=== PATIENT | male | born 1960 | race African-American/Black ===

== ENCOUNTER 2017-04-16 20:04 | Inpatient (IN) | payer MEDICARE, MEDICAID, OTHER ==
[~2017-04-16] VITALS: Ht 180.3 cm; Wt 79.4 kg
--- NOTE | 2017-04-16 21:00 | PD ---
HPI Chief Complaint: Psychiatric Symptoms Time Seen by Provider: 20:52 Travel History International Travel<30 days: No Contact w/Intl Traveler<30days: No Traveled to known affect area: No History of Present Illness HPI 56-year-old male presents to the emergency department as a [facility] [place] law enforcement [email or web address] for report of history of paranoid schizophrenia and then recent caregivers in [facility], reporting that patient has refused treatment after being bitten by a snake in his right hand earlier in the week. Patient reports that he thinks he was bitten in the hand by a rattlesnake about a month ago. [email or web address][employer]sh reports that nursing staff from [facility] facility where he was transported identified that he has consistently refused to seek medical attention despite increased swelling in the hand. Patient here denies any hand pain does complain of some right axillary discomfort; denies chest pain, shortness of breath, and no abdominal pain. PFSH Past Medical History Narrative Medical Schizophrenia; nursing notes reviewed Medical History: Denies Significant Hx Diminished Hearing: No Schizophrenia: Yes Social History Alcohol Use: No Tobacco Use: Yes Substance Use: No Allergies-Medications (Allergen,Severity, Reaction): Coded Allergies: No Known Allergies (Verified Allergy, Unknown, 04/16/17) Narrative Medication Unknown Review of Systems Except as stated in HPI: all other systems reviewed are Neg General / Constitutional: No: Fever, Chills Eyes: No: Visual changes HENT: No: Headaches, Lightheadedness Cardiovascular: No: Chest Pain or Discomfort, Diaphoresis, Syncope Respiratory: No: Shortness of Breath Gastrointestinal: No: Nausea, Vomiting, Abdominal Pain Genitourinary: No: Flank Pain Musculoskeletal: Positive: Limited ROM, Edema (right hand right hand), Pain, No : Myalgias, Arthralgias Skin: No Rash (right hand) Neurologic: No: Weakness Psychiatric: No: Anxiety, Suicidal Ideations, Homicidal Ideation Endocrine: No: Heat Intolerance Hematologic/Lymphatic: No: Easy Bruising Physical Exam Narrative GENERAL: Well-developed well-nourished male in no acute respiratory distress with garbled and slurring of speech SKIN: Warm and dry. HEAD: Normocephalic. EYES: No scleral icterus. No injection or drainage. NECK: Supple, trachea midline. No JVD or lymphadenopathy. CARDIOVASCULAR: Regular rate and rhythm without murmurs, gallops, or rubs. RESPIRATORY: Breath sounds equal bilaterally. No accessory muscle use. GASTROINTESTINAL: Abdomen soft, non-tender, nondistended. MUSCULOSKELETAL: No cyanosis, or edema. Attention right hand edema and bullous lesion of the right index finger with decreased range of motion secondary to swelling and extended swelling to the dorsum of the right hand capillary refill is brisk and less than 2 seconds to the thumb, second, third, fourth, and fifth digits and thumb apposition is not performed with the index finger secondary to swelling; ecchymotic changes noted extensively involving these right index finger however capillary refill is brisk and less than 2 seconds per digit including the right index finger; question puncture wound to the palmar aspect of the right index finger just distal second MCP otherwise no puncture wound(s) identified. BACK: Nontender without obvious deformity. No CVA tenderness. Data Data Orders Orders Complete Blood Count With Diff (04/16/17 20:52) Comprehensive Metabolic Panel (04/16/17 20:52) Urinalysis - C+S If Indicated (04/16/17 20:52) Electrocardiogram (04/16/17 20:52) Oximetry (04/16/17 20:52) Iv Access Insert/Monitor (04/16/17 20:52) Ecg Monitoring (04/16/17 20:52) Psych Screen (04/16/17 20:52) Blood Glucose (04/16/17 20:52) Drug Screen, Random Urine (04/16/17 20:52) Alcohol (Ethanol) (04/16/17 20:52) Salicylates (Aspirin) (04/16/17 20:52) Tylenol (Acetaminophen) (04/16/17 20:52) Hand, Complete ([id number]) (04/16/17 ) Act Partial Throm Time (Ptt) (04/16/17 21:00) Prothrombin Time / Inr (Pt) (04/16/17 21:00) Ckmb (Isoenzyme) Profile (04/16/17 20:52) Troponin I (04/16/17 20:52) Blood Culture (04/16/17 21:39) Lactic Acid (04/16/17 21:39) Tetanus/Diphtheria Tox Adult (Tetanus/Di (04/16/17 21:45) CKMB (04/16/17 21:15) CKMB% (04/16/17 21:15) Clindamycin Inj (Cleocin Inj) (04/16/17 22:00) Vancomycin Inj (Vancomycin Inj) (04/16/17 22:15) Admit Order (Ed Use Only) (04/16/17 ) Chief Orthoptist / Telemetry [id number].Q8H (04/16/17 22:37) Diet Npo (04/17/17 Breakfast) Activity Oob With Assistance (04/16/17 22:37) Notify Dr: Other (04/16/17 22:37) Labs Laboratory Tests Test 04/16/17 21:15 04/16/17 21:45 White Blood Count 11.2 TH/MM3 Red Blood Count 4.29 MIL/MM3 Hemoglobin 12.6 GM/DL Hematocrit 38.2 % Mean Corpuscular Volume 89.2 FL Mean Corpuscular Hemoglobin 29.4 PG Mean Corpuscular Hemoglobin Concent 32.9 % Red Cell Distribution Width 14.4 % Platelet Count 186 TH/MM3 Mean Platelet Volume 8.3 FL Neutrophils (%) (Auto) 76.0 % Lymphocytes (%) (Auto) 12.3 % Monocytes (%) (Auto) 9.2 % Eosinophils (%) (Auto) 1.5 % Basophils (%) (Auto) 1.0 % Neutrophils # (Auto) 8.5 TH/MM3 Lymphocytes # (Auto) 1.4 TH/MM3 Monocytes # (Auto) 1.0 TH/MM3 Eosinophils # (Auto) 0.2 TH/MM3 Basophils # (Auto) 0.1 TH/MM3 CBC Comment DIFF FINAL Differential Comment Prothrombin Time 10.7 SEC Prothromb Time International Ratio 1.1 RATIO Activated Partial Thromboplast Time 35.1 SEC Urine Color LIGHT-YELLOW Urine Turbidity CLEAR Urine pH 7.0 Urine Specific [place] 1.009 Urine Protein NEG mg/dL Urine Glucose (UA) NEG mg/dL Urine Ketones NEG mg/dL Urine Occult Blood NEG Urine Nitrite NEG Urine Bilirubin NEG Urine Urobilinogen 4.0 MG/DL Urine Leukocyte Esterase NEG Urine RBC 1 /hpf Urine WBC LESS THAN 1 /hpf Microscopic Urinalysis Comment CULT NOT INDICATED Blood Urea Nitrogen 11 MG/DL Creatinine 0.98 MG/DL Random Glucose 102 MG/DL Total Protein 7.2 GM/DL Albumin 3.1 GM/DL Calcium Level 8.6 MG/DL Alkaline Phosphatase 91 U/L Aspartate Amino Transf (AST/SGOT) 21 U/L Alanine Aminotransferase (ALT/SGPT) 21 U/L Total Bilirubin 0.4 MG/DL Sodium Level 137 MEQ/L Potassium Level 3.6 MEQ/L Chloride Level 102 MEQ/L Carbon Dioxide Level 27.8 MEQ/L Anion Gap 7 MEQ/L Estimat Glomerular Filtration Rate 95 ML/MIN Total Creatine Kinase 483 U/L Creatine Kinase MB 5.0 NG/ML Creatine Kinase MB % 1.0 % Troponin I LESS THAN 0.02 NG/ML Salicylates Level LESS THAN 1.7 MG/DL Urine Opiates Screen NEG Acetaminophen Level LESS THAN 2.0 MCG/ML Urine Barbiturates Screen NEG Urine Amphetamines Screen NEG Urine Benzodiazepines Screen NEG Urine Cocaine Screen NEG Urine Cannabinoids Screen NEG Ethyl Alcohol Level LESS THAN 3 MG/DL Lactic Acid Level 0.8 mmol/L MDM Medical Decision Making Medical Screen Exam Complete: Yes Emergency Medical Condition: Yes Medical Record Reviewed: Yes Interpretation(s) EKG: normal sinus rhythm rate 70 incomplete right bundle-branch block nonspecific ST-changes R HAND XR: FINDINGS: There is marked soft tissue swelling of the second finger with 2 locules of air in the soft tissues, probably related to an abscess. No bony destruction. Mild to moderate osteoarthritis present. CONCLUSION: 1. Marked soft tissue swelling on the second finger with loculated air collections most characteristic of abscess. Luke Mckenna MD on April 16, 2017 at 21:26 Board Certified Radiologist. This report was verified electronically. Differential Diagnosis Patient placed on manager center IV access obtained specimens collected and sent for resulting right hand was cleansed and imaging study ordered Narrative Course Patient placed on manager center IV access obtained specimens collected and sent for resulting imaging study of the hand performed marker was used to delineate area of soft tissue swelling proximal hand just distal to the wrist. Physician Communication Physician Communication discussed with hand surgeon Dr Hermosillo Diagnosis Primary Impression: Abscess of right hand including fingers Additional Impressions: Abscess of index finger Cellulitis of hand, right History of schizophrenia Admitting Information Admitting Physician Requests: Admit Patricia Cade MD Apr 16, 2017 21:00
--- NOTE | 2017-04-16 21:29 | RADRPT ---
EXAM DATE/TIME: 04/16/2017 21:05 [place] COMPARISON: No previous studies available for comparison. INDICATIONS : Right hand pain and swelling. MEDICAL HISTORY : Schizophrenia. SURGICAL HISTORY : None. ENCOUNTER: Initial ACUITY: 1 day PAIN SCORE: Non-responsive. LOCATION: Right hand. FINDINGS: There is marked soft tissue swelling of the second finger with 2 locules of air in the soft tissues, probably related to an abscess. No bony destruction. Mild to moderate osteoarthritis present. CONCLUSION: 1. Marked soft tissue swelling on the second finger with loculated air collections most characteristi c of abscess. Luke Mckenna MD on April 16, 2017 at 21:26 Board Certified Radiologist. This report was verified electronically.
[2017-04-16 21:33] LABS: AUTOMATED NEUTROPHIL # 8.5 TH/MM3 (1.8-7.7); BASOPHIL # 0.1 TH/MM3 (0-0.2); BLOOD, URINE NEG (NEG); EOSINOPHIL # 0.2 TH/MM3 (0-0.4); EOSINOPHIL % 1.5 % (0.0-4.0); GLUCOSE,URINE NEG (NEG); HEMATOCRIT 38.2 % (39.0-51.0); HEMO FLAGS DIFF FINAL; KETONE, URINE NEG (NEG); LYMPH % 12.3 % (9.0-44.0); LYMPHOCYTE # 1.4 TH/MM3 (1.0-4.8); MEAN CELL VOLUME 89.2 FL (80.0-100.0); MEAN CORPUSCULAR HEMOGLOBIN 29.4 PG (27.0-34.0); MEAN CORPUSCULAR HGB CONC 32.9 % (32.0-36.0); MONO % 9.2 % (0.0-8.0); NITRITE,URINE NEG (NEG); PLATELET COUNT 186 TH/MM3 (150-450); RED BLOOD COUNT 4.29 MIL/MM3 (4.50-5.90); RED CELL DISTRIBUTION WIDTH 14.4 % (11.6-17.2); URINE COLOR LIGHT-YELLOW (YELLW/STRAW); WHITE BLOOD COUNT 11.2 TH/MM3 (4.0-11.0)
[2017-04-16 21:34] LABS: COMMENT (UR) CULT NOT INDICATED; CULTURE IF INDICATED CULT NOT INDICATED
[2017-04-16 21:41] LABS: APTT (PATIENT) 35.1 SEC (24.3-30.1); INTERNATIONAL NORMALIZED RATIO 1.1 RATIO; PROTHROMBIN TIME - PATIENT 10.7 SEC (9.8-11.6)
[2017-04-16] MEDS ORDERED: CLINDAMYCIN 900 MG/DEX PREMIX 50 ML IV ONE (21:45)
[2017-04-16] MEDS ORDERED: TETANUS/DIPHTHERIA TOXOID ADULT 0.5 ML VIAL IM ONE (21:45)
[2017-04-16] MEDS ORDERED: CLINDAMYCIN INJ 900 MG in SODIUM CHLORIDE 0.9% INJ 100 ML IV ONE (22:00)
[2017-04-16 22:03] LABS: ANION GAP 7 MEQ/L (5-15); AST (GOT) 21 U/L (15-37); BICARBONATE 27.8 MEQ/L (21.0-32.0); BLOOD UREA NITROGEN 11 MG/DL (7-18); CHLORIDE 102 MEQ/L (98-107); GLOMERULAR FILTRATION RATE 95 ML/MIN (>89); POTASSIUM 3.6 MEQ/L (3.5-5.1); SODIUM (NA) 137 MEQ/L (136-145)
[2017-04-16 22:04] LABS: ALT (GPT) 21 U/L (12-78)
[2017-04-16 22:06] LABS: ALCOHOL LESS THAN 3 MG/DL (0-5)
[2017-04-16 22:08] LABS: ACETAMINOPHEN LESS THAN 2.0 MCG/ML (10.0-30.0); ALKALINE PHOSPHATASE 91 U/L (45-117); CREATINE KINASE 483 U/L (39-308); TOTAL BILIRUBIN ADULT 0.4 MG/DL (0.2-1.0)
[2017-04-16] MEDS ORDERED: VANCOMYCIN INJ 1,000 MG in SODIUM CHLOR 0.9% 250 ML INJ 250 ML IV ONE (22:15)
[2017-04-16] MEDS: SODIUM CHLOR 0.9% 1000 ML INJ 1,000 ML IV SCH (22:37)
[2017-04-16] MEDS ORDERED: SODIUM CHLORIDE 0.9% FLUSH 10 ML FLUSH IV FLUSH PRN (22:45)
[2017-04-16] MEDS ORDERED: LACTULOSE SYRUP 20 GM/30 ML CUP PO PRN (22:45)
[2017-04-16] MEDS ORDERED: NALOXONE HCL 0.4 MG/ML AMP IV PUSH PRN (22:45)
[2017-04-16] MEDS ORDERED: SENNOSIDES 8.6 MG TAB PO PRN (22:45)
[2017-04-16] MEDS ORDERED: MAGNESIUM HYDROXIDE SUSP 30 ML CUP PO PRN (22:45)
[2017-04-16] MEDS ORDERED: Vancomycin Consult Pharmacy 1 EA OTHER SCH (22:45)
[2017-04-16] MEDS ORDERED: BISACODYL 10 MG SUPP RECTAL PRN (22:45)
[2017-04-16] MEDS ORDERED: ACETAMINOPHEN 325 MG TAB PO PRN (22:45)
[2017-04-16] MEDS ORDERED: ONDANSETRON HCL 4 MG/2 ML VIAL IVP PRN (22:45)
[2017-04-16 23:30] VITALS: BP 108/59; PULSE 74; RESP 16; TEMP 100.4; O2SAT 98
[2017-04-17] VITALS (8 sets, daily range): BP systolic 118–124; BP diastolic 58–73; PULSE 50–72; RESP 16–20; TEMP 98.3–102.3; O2SAT 95–98
[2017-04-17] MEDS ORDERED: VANCOMYCIN INJ 1,500 MG in SODIUM CHLORID 0.9% 500 ML INJ 500 ML IV SCH (01:00)
[2017-04-17] MEDS: PIPERACIL-TAZO 3.375 GM PREMIX 50 ML IV SCH ×5 (02:22→23:58)
--- NOTE | 2017-04-17 04:25 | HHI.HP ---
[facility] Unknown Admission Diagnosis R index finger abscess/hand cellulitis; hanna act Diagnoses: Travel History International Travel<30 Days: No Contact w/Intl Traveler <30 Da: No Traveled to Known Affected Are: No History of Present Illness 56-year-old male with a past medical history significant for paranoid schizophrenia was brought into the emergency department under Hanna act for refusing treatment of a right index finger swelling/infection. The patient lives in [facility] living in [place]. He reports that he was bitten by a rattlesnake "a few weeks ago." Patient reports pain in the right index finger with limited range of motion secondary to edema. He has no other complaints at this time. Laboratory values significant for a mild leukocytosis of 11.2. Hand xray significant for swelling on the second finger with loculated air collection characteristic of an abscess. Review of Systems Denies fever or chills Denies blurry vision, otorrhea, rhinorrhea Denies sore throat and cough No chest pain, palpitations, shortness of breath No abdominal pain Denies constipation/diarrhea/nausea/vomiting Denies muscle pain/weakness No rashes Past Family Social History Past Medical History Patient denies any medical problems He has no medical records to review History of paranoid schizophrenia Past Surgical History Patient denies any previous surgeries Reported Medications Unknown Allergies: Coded Allergies: No Known Allergies (Verified Allergy, Unknown, 04/16/17) Family History Denies family history of heart disease or diabetes Social History Denies tobacco, alcohol and illicit drugs Physical Exam Vital Signs Vital Signs Date Time Temp Pulse Resp B/P (MAP) Pulse Ox O2 Delivery O2 Flow Rate FiO2 04/17/17 02:18 69 04/16/17 23:30 100.4 74 16 108/59 (75) 98 Physical Exam GENERAL: male lying in bed sleeping SKIN: Right index finger with significant edema that extends to the wrist. Fluctuance noted along the lateral side of the finger. No open wounds, puncture sites or drainage. HEAD: Atraumatic. Normocephalic. No temporal or scalp tenderness. EYES: Pupils equal round and reactive. Extraocular motions intact. No scleral icterus. No injection or drainage. ENT: Nose without bleeding, purulent drainage or septal hematoma. Throat without erythema, tonsillar hypertrophy or exudate. Uvula midline. Airway patent. NECK: Trachea midline. No JVD or lymphadenopathy. Supple, nontender, no meningeal signs. CARDIOVASCULAR: Regular rate and rhythm without murmurs, gallops, or rubs. RESPIRATORY: Clear to auscultation. Breath sounds equal bilaterally. No wheezes , rales, or rhonchi. GASTROINTESTINAL: Abdomen soft, non-tender, nondistended. No hepato-splenomegaly , or palpable masses. No guarding. MUSCULOSKELETAL: Extremities without clubbing, cyanosis, or edema. No joint tenderness, effusion, or edema noted. No calf tenderness. NEUROLOGICAL: Awake and alert. Cranial nerves II through XII intact. Motor and sensory grossly within normal limits. Slurred speech. Laboratory Laboratory Tests Test 04/16/17 21:15 04/16/17 21:45 White Blood Count 11.2 Red Blood Count 4.29 Hemoglobin 12.6 Hematocrit 38.2 Mean Corpuscular Volume 89.2 Mean Corpuscular Hemoglobin 29.4 Mean Corpuscular Hemoglobin Concent 32.9 Red Cell Distribution Width 14.4 Platelet Count 186 Mean Platelet Volume 8.3 Neutrophils (%) (Auto) 76.0 Lymphocytes (%) (Auto) 12.3 Monocytes (%) (Auto) 9.2 Eosinophils (%) (Auto) 1.5 Basophils (%) (Auto) 1.0 Neutrophils # (Auto) 8.5 Lymphocytes # (Auto) 1.4 Monocytes # (Auto) 1.0 Eosinophils # (Auto) 0.2 Basophils # (Auto) 0.1 CBC Comment DIFF FINAL Differential Comment Prothrombin Time 10.7 Prothromb Time International Ratio 1.1 Activated Partial Thromboplast Time 35.1 Urine Color LIGHT-YELLOW Urine Turbidity CLEAR Urine pH 7.0 Urine Specific [place] 1.009 Urine Protein NEG Urine Glucose (UA) NEG Urine Ketones NEG Urine Occult Blood NEG Urine Nitrite NEG Urine Bilirubin NEG Urine Urobilinogen 4.0 Urine Leukocyte Esterase NEG Urine RBC 1 Urine WBC LESS THAN 1 Microscopic Urinalysis Comment CULT NOT INDICATED Blood Urea Nitrogen 11 Creatinine 0.98 Random Glucose 102 Total Protein 7.2 Albumin 3.1 Calcium Level 8.6 Alkaline Phosphatase 91 Aspartate Amino Transf (AST/SGOT) 21 Alanine Aminotransferase (ALT/SGPT) 21 Total Bilirubin 0.4 Sodium Level 137 Potassium Level 3.6 Chloride Level 102 Carbon Dioxide Level 27.8 Anion Gap 7 Estimat Glomerular Filtration Rate 95 Total Creatine Kinase 483 Creatine Kinase MB 5.0 Creatine Kinase MB % 1.0 Troponin I LESS THAN 0.02 Salicylates Level LESS THAN 1.7 Urine Opiates Screen NEG Acetaminophen Level LESS THAN 2.0 Urine Barbiturates Screen NEG Urine Amphetamines Screen NEG Urine Benzodiazepines Screen NEG Urine Cocaine Screen NEG Urine Cannabinoids Screen NEG Ethyl Alcohol Level LESS THAN 3 Lactic Acid Level 0.8 Date/Time Source Procedure Growth Status 04/16/17 21:45 Blood Peripheral Aerobic Blood Culture Pending Received 04/16/17 21:45 Blood Peripheral Anaerobic Blood Culture Pending Received Result Diagram: 04/16/17211404/16/172114 Kevin VTE Risk Assessment Kevin VTE Risk Assessment: No/Low Risk (score <= 1) [place]ani Risk Assessment Model Point Value = 1 Point Value = 2 Point Value = 3 Point Value = 5 Age 41-60 Minor surgery BMI > 25 kg/m2 Swollen legs Varicose veins or History of unexplained or recurrent spontaneous Oral contraceptives or hormone replacement Sepsis (< 1 month) Serious lung disease, including pneumonia (< 1 month) Abnormal pulmonary function Acute myocardial infarction Congestive heart failure (< 1 month) History of inflammatory bowel disease Medical patient at bed rest Age 61-74 Arthroscopic surgery Major open surgery (> 45 min) Laparoscopic surgery (> 45 min) Malignancy Confined to bed (> 72 hours) Immobilizing plaster cast Central venous access Age >= 75 History of VTE Family history of VTE Factor V Leiden Prothrombin [id number] Lupus anticoagulant Anticardiolipin antibodies Elevated serum homocysteine Heparin-induced thrombocytopenia Other congenital or acquired thrombophilia Stroke (< 1 month) Elective arthroplasty Hip, pelvis, or leg fracture Acute spinal cord injury (< 1 month) Prophylaxis Regimen Total Risk Factor Score Risk Level Prophylaxis Regimen 0-1 Low Early ambulation 2 Moderate Order ONE of the following: *Sequential Compression Device (SCD) *Heparin 5000 units SQ BID 3-4 Higher Order ONE of the following medications: *Heparin 5000 units SQ TID *Enoxaparin/Lovenox 40 mg SQ daily (WT < 150 kg, CrCl > 30 mL/min) *Enoxaparin/Lovenox 30 mg SQ daily (WT < 150 kg, CrCl > 10-29 mL/min) *Enoxaparin/Lovenox 30 mg SQ BID (WT < 150 kg, CrCl > 30 mL/min) AND/OR *Sequential Compression Device (SCD) 5 or more Highest Order ONE of the following medications: *Heparin 5000 units SQ TID (Preferred with Epidurals) *Enoxaparin/Lovenox 40 mg SQ daily (WT < 150 kg, CrCl > 30 mL/min) *Enoxaparin/Lovenox 30 mg SQ daily (WT < 150 kg, CrCl > 10-29 mL/min) *Enoxaparin/Lovenox 30 mg SQ BID (WT < 150 kg, CrCl > 30 mL/min) AND *Sequential Compression Device (SCD) Assessment and Plan Assessment and Plan Assessment/plan: 1. Right index finger cellulitis/abscess Patient reports sustaining a snake bite however no puncture wounds are present Blood cultures pending Vancomycin/Zosyn Hand surgery consulted, plan for OR later today Monitor for signs of sepsis 2. Paranoid schizophrenia/Hanna act Unclear what medications patient takes, he is unable to provide this information Medication records requested from patient's living facility Psychiatry consulted, appreciate recommendations FEN NPO NS at 100 cc/hr Electrolytes: monitor and replete prn Holding pharmacologic anticoagulation in anticipation of OR later today Case discussed with ER physician at length Physician Certification 2 Midnight Certification Type: Admission for Inpatient Services Order for Inpatient Services The services are ordered in accordance with Medicare regulations or non- Medicare payer requirements, as applicable. In the case of services not specified as inpatient-only, they are appropriately provided as inpatient services in accordance with the 2-midnight benchmark. Estimated LOS (days): 2 2 days is the estimated time the patient will need to remain in the hospital, assuming treatment plan goals are met and no additional complications. Post-Hospital Plan: Not yet determined Echo Thornton MD Apr 17, 2017 04:25
[2017-04-17] MEDS: SODIUM CHLOR 0.9% 1000 ML INJ 1,000 ML IV SCH ×2 (05:43→18:03)
[2017-04-17] MEDS ORDERED: POVIDONE IODINE 5% (ANTISEPSIS KIT) 4 APPLICATIONS EACH NARE PRN (06:00)
[2017-04-17] MEDS ORDERED: SODIUM CHLORID 0.9% 500 ML IV PRN (06:00)
[2017-04-17] MEDS ORDERED: INSULIN HUMAN REGULAR 1,000 UNITS/10 ML VIAL SQ PRN (06:00)
[2017-04-17] MEDS ORDERED: CHLORHEXIDINE GLUCONATE 2 % 1 PACK (2 CLOTHS) TOPICAL PRN (06:00)
[2017-04-17] MEDS ORDERED: METOPROLOL TARTRATE 25 MG TAB PO PRN (06:00)
[2017-04-17] MEDS ORDERED: LACTATED RINGER'S 1000 ML IV PRN (06:00)
[2017-04-17] MEDS: SODIUM CHLORIDE 0.9% FLUSH 10 ML FLUSH IV FLUSH SCH ×2 (08:46→21:00)
[2017-04-17] MEDS: DOCUSATE SODIUM 50 MG/SENNA 8.6 MG TAB PO SCH ×2 (08:47→21:00)
--- NOTE | 2017-04-17 09:27 | HHI.PR ---
Subjective Remarks in no acute distress. looks comfortable. T max; 102. 3. d/w the RN. Objective Vitals Vital Signs Date Time Temp Pulse Resp B/P (MAP) Pulse Ox O2 Delivery O2 Flow Rate FiO2 04/17/17 08:31 99.1 58 20 122/60 (80) 96 04/17/17 04:51 102.3 72 16 124/58 (80) 98 04/17/17 04:00 72 04/17/17 02:18 69 04/16/17 23:30 100.4 74 16 108/59 (75) 98 I/O 04/16/17 04/16/17 04/16/17 04/17/17 04/17/17 04/17/17 07:00 15:00 23:00 07:00 15:00 23:00 Intake Total 855 ml Output Total 1000 ml Balance -145 ml Intake IV Total 855 ml Output Urine Total 1000 ml Result Diagram: 04/16/17211404/16/172114 Imaging Last Impressions Hand X-Ray 04/16/17 0000 Signed Impressions: Service Date/Time: Sunday, April 16, 2017 21:05 - CONCLUSION: 1. Marked soft tissue swelling on the second finger with loculated air collections most characteristic of abscess. Luke Mckenna MD Objective Remarks GENERAL: This is a well-nourished, well-developed patient, in no apparent distress. CARDIOVASCULAR: Regular rate and regular rhythm without murmurs, gallops, or rubs. RESPIRATORY: Clear to auscultation. Breath sounds equal bilaterally. No wheezes , rales, or rhonchi. GASTROINTESTINAL: Abdomen soft, non-tender, nondistended. Normal, active bowel sounds MUSCULOSKELETAL: right hand is swollen. NEURO: Alert & Oriented x4 to person, place, time, situation. Moves all ext x4 Medications and IVs Current Medications Clindamycin Phosphate/Dextrose 50 ml @ 100 mls/hr ONCE ONCE IV ; Start at 21:45; Stop 04/16/17 at 22:14; Status Cancel Tetanus/ Diphtheria Toxoids (Tetanus/ Diphtheria Tox Adult) 0.5 ml ONCE ONCE IM Last administered on 04/16/17t 22:04; Start 04/16/17 at 21:45; Stop 04/16/17 at 21:46; Status DC Clindamycin Phosphate 900 mg/ Sodium Chloride 106 ml @ 212 mls/hr ONCE ONCE IV Last administered on 04/16/17 22:31; Start 04/16/17 at 22:00; Stop at 22:29; Status DC Vancomycin HCl 1000 mg/Sodium Chloride 250 ml @ 250 mls/hr ONCE ONCE IV Last administered on 04/17/17 00:23; Start 04/16/17 at 22:15; Stop 04/16/17 at 23: 14; Status DC Sodium Chloride 1,000 ml @ 100 mls/hr Q10H IV Last administered on 04/16/17 22:37; Start 04/16/17 at 22:37 Sodium Chloride (NS Flush) 2 ml UNSCH PRN IV FLUSH FLUSH AFTER USING IV ACCESS ; Start 04/16/17 at 22:45 Sodium Chloride (NS Flush) 2 ml BID IV FLUSH ; Start 04/17/17 at 09:00 Acetaminophen (Tylenol) 650 mg Q4H PRN PO TEMP > 100.4 Last administered on 04:14; Start 04/16/17 at 22:45 Ondansetron HCl (Zofran Inj) 4 mg Q6H PRN IVP NAUSEA OR VOMITING; Start at 22:45 Naloxone HCl (Narcan Inj) 0.4 mg UNSCH PRN IV PUSH SEE LABEL COMMENTS; Start 04/16/17 at 22:45 Senna/Docusate Sodium (Raquel-Colace) 1 tab BID PO ; Start 04/17/17 at 09:00 Magnesium Hydroxide (Milk Of Magnesia Liq) 30 ml Q12H PRN PO Mild constipation ; Start 04/16/17 at 22:45 Sennosides (Senokot) 17.2 mg Q12H PRN PO Moderate constipation; Start 04/16/17 at 22:45 Bisacodyl (Dulcolax Supp) 10 mg DAILY PRN RECTAL SEVERE CONSITIPATION/ IF NPO; Start 04/16/17 at 22:45 Lactulose (Lactulose Liq) 30 ml DAILY PRN PO SEVERE CONSITIPATION/ IF PO; Start 04/16/17 at 22:45 Pharmacy Profile Note 0 ml @ 0 mls/hr UNSCH OTHER ; Start 04/16/17 at 22:45 Vancomycin HCl 1000 mg/Sodium Chloride 250 ml @ 250 mls/hr Q12H IV ; Start 02/22 at 10:00; Status UNV Piperacillin Sod/ Tazobactam Sod 50 ml @ 100 mls/hr Q6H IV Last administered on 04/17/17 05:47; Start 04/16/17 at 23:00 Vancomycin HCl 1500 mg/Sodium Chloride 515 ml @ 250 mls/hr DAILY@0100 IV Last administered on 04/17/17 02:48; Start 04/17/17 at 01:00; Stop 04/17/17 at 04 :00; Status DC Lactated Ringer's 1,000 ml @ 30 mls/hr Q24H PRN IV SEE LABEL COMMENTS; Start 04/17/17 at 06:00; Stop 04/20/17 at 05:59 Sodium Chloride 500 ml @ 30 mls/hr [id number] PRN IV SEE LABEL COMMENTS; Start at 06:00; Stop 04/20/17 at 05:59 Metoprolol Tartrate (Lopressor) 25 mg AD COPY WRITER PRN PO SEE LABEL COMMENTS; Start 04/17/17 at 06:00; Stop 04/20/17 at 05:59 Povidone Iodine (Betadine 5% Antisepsis Kit) 1 applic AD COPY WRITER PRN EACH NARE SEE LABEL COMMENTS; Start 04/17/17 at 06:00; Stop 04/20/17 at 05:59 Chlorhexidine Gluconate (Chlorhexidine 2% Cloth) 3 pack AD COPY WRITER PRN TOPICAL SEE LABEL COMMENTS; Start 04/17/17 at 06:00; Stop 04/20/17 at 05:59 Insulin Human Regular (NovoLIN R INJ) See Protocol Table ... AD COPY WRITER PRN SQ SEE PROTOCOL TABLE; Start 04/17/17 at 06:00; Stop 04/20/17 at 05:59 A/P Assessment and Plan A/P 1. Right index finger cellulitis/abscess Patient reports sustaining a snake bite however no puncture wounds are present Blood cultures pending continue Vancomycin/Zosyn Hand surgery consulted, plan for possible surgery today. Monitor for signs of sepsis 2. Paranoid schizophrenia/Hanna act Unclear what medications patient takes, he is unable to provide this information Medication records requested from patient's living facility Psychiatry consulted. Km Kohler MD Apr 17, 2017 09:27
[2017-04-17] MEDS ORDERED: VANCOMYCIN INJ 1,000 MG in SODIUM CHLOR 0.9% 250 ML INJ 250 ML IV SCH (10:00)
[2017-04-17 10:41] LABS: AUTOMATED NEUTROPHIL # 6.3 TH/MM3 (1.8-7.7); BASOPHIL # 0.1 TH/MM3 (0-0.2); BASOPHIL % 0.8 % (0.0-2.0); EOSINOPHIL # 0.2 TH/MM3 (0-0.4); EOSINOPHIL % 2.3 % (0.0-4.0); HEMATOCRIT 37.2 % (39.0-51.0); HEMO FLAGS DIFF FINAL; LYMPHOCYTE # 2.1 TH/MM3 (1.0-4.8); MEAN CELL VOLUME 89.8 FL (80.0-100.0); MEAN CORPUSCULAR HEMOGLOBIN 29.9 PG (27.0-34.0); MEAN CORPUSCULAR HGB CONC 33.3 % (32.0-36.0); MONO % 8.8 % (0.0-8.0); NEUT % 66.1 % (16.0-70.0); PLATELET COUNT 184 TH/MM3 (150-450); RED BLOOD COUNT 4.15 MIL/MM3 (4.50-5.90); RED CELL DISTRIBUTION WIDTH 14.7 % (11.6-17.2); WHITE BLOOD COUNT 9.5 TH/MM3 (4.0-11.0)
[2017-04-17] MEDS ORDERED: PROPOFOL 200 MG/20 ML AMP IV ONE (12:00)
[2017-04-17] MEDS ORDERED: ONDANSETRON HCL 4 MG/2 ML VIAL IV ONE (12:00)
[2017-04-17] MEDS ORDERED: LIDOCAINE HCL 1% PF 5 ML SYRINGE OTHER ONE (12:00)
[2017-04-17] MEDS ORDERED: DEXAMETHASONE SOD PHOS 4 MG/ML VIAL IV ONE (12:00)
[2017-04-17] MEDS ORDERED: MIDAZOLAM HCL 2 MG/2 ML VIAL IV ONE (12:00)
--- NOTE | 2017-04-17 12:27 | EKG ---
Date Performed: 04/16/2017 Time Performed: 21:17:27 PTAGE: 56 years EKG: RIGHT VENTRICULAR CONDUCTION DISTURBANCE PROMINENT PRECORDIAL VOLTAGE MINOR NONSPECIFIC T-W AVE CHANGE BORDERLINE ECG NO PREVIOUS TRACING DOCTOR: Bertin Gunn Interpretating Date/Time 04/17/2017 12:26:53
[2017-04-17] MEDS ORDERED: NEOMYCIN/POLYMYXIN 1 ML G.U. IRRIGANT ONE (14:06)
[2017-04-17] MEDS ORDERED: BUPIVACAINE HCL PF 0.5% 30 ML VIAL ONE (14:10)
[2017-04-17] MEDS ORDERED: LIDOCAINE HCL 2% 50 ML VIAL ONE (14:10)
[2017-04-17] MEDS ORDERED: BACITRACIN TOP OINT 15 GM TUBE ONE (15:51)
--- NOTE | 2017-04-17 16:04 | PD.OP ---
Operative Report Preoperative Diagnosis: (1) Abscess of right index finger Postoperative Diagnosis: (1) Abscess of right index finger Procedure: Incision and drainage, excisional debridement right index finger abscess Anesthesia: general Surgeon: John Hermosillo Marine Erector(s): lauren Operation and Findings: abscess cavity with foul smelling pus right index finger John Hermosillo MD Apr 17, 2017 16:04
[2017-04-17] MEDS ORDERED: DO NOT ADM ANY ANTICOAGULANT DRUGS PRN (16:08)
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
[2017-04-18] VITALS (8 sets, daily range): BP systolic 99–110; BP diastolic 57–75; PULSE 49–71; RESP 17–20; TEMP 97.2–98.2; O2SAT 96–99
[2017-04-18] MEDS: SODIUM CHLOR 0.9% 1000 ML INJ 1,000 ML IV SCH ×3 (00:07→21:43)
[2017-04-18] MEDS: PIPERACIL-TAZO 3.375 GM PREMIX 50 ML IV SCH ×4 (05:31→23:32)
--- NOTE | 2017-04-18 08:38 | HHI.PR ---
Subjective Remarks in no acute distress. resting comfortably. no fever. Objective Vitals Vital Signs Date Time Temp Pulse Resp B/P (MAP) Pulse Ox O2 Delivery O2 Flow Rate FiO2 04/18/17 04:55 97.9 57 18 99/60 (73) 99 04/18/17 01:11 97.2 58 18 107/63 (78) 98 04/17/17 21:00 98.3 72 18 118/73 (88) 96 04/17/17 20:25 96 21 04/17/17 17:00 98.3 66 17 123/80 (94) 96 Room Air 04/17/17 16:45 64 17 117/81 (93) 100 Nasal Cannula 2 04/17/17 16:30 70 17 120/76 (91) 100 Nasal Cannula 2 04/17/17 16:15 68 15 130/79 (96) 100 Nasal Cannula 3 04/17/17 16:10 98.2 63 15 144/79 (100) 100 Nasal Cannula 3 04/17/17 15:00 68 04/17/17 12:33 99.2 50 20 121/72 (88) 95 I/O 04/17/17 04/17/17 04/17/17 04/18/17 04/18/17 04/18/17 07:00 15:00 23:00 07:00 15:00 23:00 Intake Total 855 ml 890 ml 1050 ml Output Total 1000 ml 550 ml 350 ml 300 ml Balance -145 ml 340 ml 700 ml -300 ml Intake Oral 240 ml IV Total 855 ml 50 ml 1050 ml Other 600 ml Output Urine Total 1000 ml 550 ml 350 ml 300 ml Estimated Blood Loss 0 ml Result Diagram: 04/17/17 0911 04/17/17 0911 Imaging Last Impressions Hand X-Ray 04/16/17 0000 Signed Impressions: Service Date/Time: Sunday, April 16, 2017 21:05 - CONCLUSION: 1. Marked soft tissue swelling on the second finger with loculated air collections most characteristic of abscess. Luke Mckenna MD Objective Remarks GENERAL: This is a well-nourished, well-developed patient, in no apparent distress. CARDIOVASCULAR: Regular rate and regular rhythm without murmurs, gallops, or rubs. RESPIRATORY: Clear to auscultation. Breath sounds equal bilaterally. No wheezes , rales, or rhonchi. GASTROINTESTINAL: Abdomen soft, non-tender, nondistended. Normal, active bowel sounds MUSCULOSKELETAL: right hand is swollen. NEURO: Alert & Oriented x4 to person, place, time, situation. Moves all ext x4 Procedures Incision and drainage and excisional debridement, abscess right index finger. Medications and IVs Current Medications Clindamycin Phosphate/Dextrose 50 ml @ 100 mls/hr ONCE ONCE IV ; Start at 21:45; Stop 04/16/17 at 22:14; Status Cancel Tetanus/ Diphtheria Toxoids (Tetanus/ Diphtheria Tox Adult) 0.5 ml ONCE ONCE IM Last administered on 04/16/17 22:04; Start 04/16/17 at 21:45; Stop 04/16/17 at 21:46; Status DC Clindamycin Phosphate 900 mg/ Sodium Chloride 106 ml @ 212 mls/hr ONCE ONCE IV Last administered on 04/16/17 22:31; Start 04/16/17 at 22:00; Stop at 22:29; Status DC Vancomycin HCl 1000 mg/Sodium Chloride 250 ml @ 250 mls/hr ONCE ONCE IV Last administered on 04/17/17 00:23; Start 04/16/17 at 22:15; Stop 04/16/17 at 23: 14; Status DC Sodium Chloride 1,000 ml @ 100 mls/hr Q10H IV Last administered on 04/18/17 00:07; Start 04/16/17 at 22:37 Sodium Chloride (NS Flush) 2 ml UNSCH PRN IV FLUSH FLUSH AFTER USING IV ACCESS ; Start 04/16/17 at 22:45 Sodium Chloride (NS Flush) 2 ml BID IV FLUSH Last administered on 04/17/17 21 :00; Start 04/17/17 at 09:00 Acetaminophen (Tylenol) 650 mg Q4H PRN PO TEMP > 100.4 Last administered on 04:14; Start 04/16/17 at 22:45 Ondansetron HCl (Zofran Inj) 4 mg Q6H PRN IVP NAUSEA OR VOMITING; Start at 22:45 Naloxone HCl (Narcan Inj) 0.4 mg UNSCH PRN IV PUSH SEE LABEL COMMENTS; Start 04/16/17 at 22:45 Senna/Docusate Sodium (Raquel-Colace) 1 tab BID PO ; Start 04/17/17 at 09:00 Magnesium Hydroxide (Milk Of Magnesia Liq) 30 ml Q12H PRN PO Mild constipation ; Start 04/16/17 at 22:45 Sennosides (Senokot) 17.2 mg Q12H PRN PO Moderate constipation; Start 04/16/17 at 22:45 Bisacodyl (Dulcolax Supp) 10 mg DAILY PRN RECTAL SEVERE CONSITIPATION/ IF NPO; Start 04/16/17 at 22:45 Lactulose (Lactulose Liq) 30 ml DAILY PRN PO SEVERE CONSITIPATION/ IF PO; Start 04/16/17 at 22:45 Pharmacy Profile Note 0 ml @ 0 mls/hr UNSCH OTHER ; Start 04/16/17 at 22:45 Vancomycin HCl 1000 mg/Sodium Chloride 250 ml @ 250 mls/hr Q12H IV ; Start 02/22 at 10:00; Status UNV Piperacillin Sod/ Tazobactam Sod 50 ml @ 100 mls/hr Q6H IV Last administered on 04/18/17 05:31; Start 04/16/17 at 23:00 Vancomycin HCl 1500 mg/Sodium Chloride 515 ml @ 250 mls/hr DAILY@0100 IV Last administered on 04/17/17 02:48; Start 04/17/17 at 01:00; Stop 04/17/17 at 04 :00; Status DC Lactated Ringer's 1,000 ml @ 30 mls/hr Q24H PRN IV SEE LABEL COMMENTS; Start 04/17/17 at 06:00; Stop 04/20/17 at 05:59 Sodium Chloride 500 ml @ 30 mls/hr [id number] PRN IV SEE LABEL COMMENTS; Start at 06:00; Stop 04/20/17 at 05:59 Metoprolol Tartrate (Lopressor) 25 mg CO DIRECTOR PRN PO SEE LABEL COMMENTS; Start 04/17/17 at 06:00; Stop 04/20/17 at 05:59 Povidone Iodine (Betadine 5% Antisepsis Kit) 1 applic CO DIRECTOR PRN EACH NARE SEE LABEL COMMENTS; Start 04/17/17 at 06:00; Stop 04/20/17 at 05:59 Chlorhexidine Gluconate (Chlorhexidine 2% Cloth) 3 pack CO DIRECTOR PRN TOPICAL SEE LABEL COMMENTS; Start 04/17/17 at 06:00; Stop 04/20/17 at 05:59 Insulin Human Regular (NovoLIN R INJ) See Protocol Table ... CO DIRECTOR PRN SQ SEE PROTOCOL TABLE; Start 04/17/17 at 06:00; Stop 04/20/17 at 05:59 Neomycin/Polymyxin (Neosporin G.u. Irr) 2 ml STK-MED ONCE .ROUTE ; Start at 14:06; Stop 04/17/17 at 14:07; Status DC Lidocaine HCl (Xylocaine 2% Inj) 50 ml STK-MED ONCE .ROUTE ; Start 04/17/17 at 14:10; Stop 04/17/17 at 14:11; Status DC Bupivacaine HCl (Marcaine Pf 0.5% Inj) 30 ml STK-MED ONCE .ROUTE ; Start at 14:10; Stop 04/17/17 at 14:11; Status DC Bacitracin (Baciguent Oint) 15 applic STK-MED ONCE .ROUTE Last administered on 04/17/17t 15:51; Start 04/17/17 at 15:51; Stop 04/17/17 at 15:52; Status DC Miscellaneous Information ALL NURSING DEPARTME... UNSCH PRN .XX SEE LABEL COMMENTS; Start 04/17/17 at 16:08; Stop 04/18/17 at 16:07 A/P Assessment and Plan A/P 1. Right index finger cellulitis/abscess Patient reports sustaining a snake bite however no puncture wounds are present s/p Incision and drainage and excisional debridement, abscess right index finger. Blood cultures negative so far. follow the wound cultures. continue Vancomycin/Zosyn hand surgery following. 2. Paranoid schizophrenia/Hanna act Unclear what medications patient takes, he is unable to provide this information Psychiatry consulted ( d/w Dr. Espinosa). Discharge Planning when wound culture is resulted and cleared by hand surgery and psych. Km Kohler MD Apr 18, 2017 08:38
[2017-04-18] MEDS: DOCUSATE SODIUM 50 MG/SENNA 8.6 MG TAB PO SCH ×2 (08:54→21:00)
[2017-04-18] MEDS: SODIUM CHLORIDE 0.9% FLUSH 10 ML FLUSH IV FLUSH SCH ×2 (08:55→21:00)
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
[2017-04-18] MEDS: VANCOMYCIN INJ 1,250 MG in SODIUM CHLOR 0.9% 250 ML INJ 250 ML IV SCH (14:37)
--- NOTE | 2017-04-18 17:04 | HHI.PR ---
Subjective Remarks patient feeling well denies any pain or fever Objective Vital Signs Date Time Temp Pulse Resp B/P (MAP) Pulse Ox O2 Delivery O2 Flow Rate FiO2 04/18/17 12:00 71 04/18/17 10:53 52 04/18/17 08:45 98.2 66 18 110/75 (87) 96 04/18/17 04:55 97.9 57 18 99/60 (73) 99 04/18/17 01:11 97.2 58 18 107/63 (78) 98 04/17/17 21:00 98.3 72 18 118/73 (88) 96 04/17/17 20:25 96 21 I/O 04/17/17 04/17/17 04/17/17 04/18/17 04/18/17 04/18/17 07:00 15:00 23:00 07:00 15:00 23:00 Intake Total 855 ml 890 ml 1050 ml 876 ml Output Total 1000 ml 550 ml 350 ml 300 ml Balance -145 ml 340 ml 700 ml 576 ml Intake Oral 240 ml IV Total 855 ml 50 ml 1050 ml 876 ml Other 600 ml Output Urine Total 1000 ml 550 ml 350 ml 300 ml Estimated Blood Loss 0 ml examination of the right index finger: dressing in place healthy wound over the index finger no drainage no surrounding signs of inflammation able to flex index finger better cultures: prelim gram stain GPC in cluster and pairs wbc count normal Result Diagram: 04/17/17 0911 04/17/17 0911 Assessment and Plan Assessment and Plan 56 year old male s/p incision and drainage right index finger abscess pod 1 plan; dressing changed follow up cultures hand surgery will follow will plan for discharge after culture results. John Hermosillo MD Apr 18, 2017 17:04
[2017-04-18] MEDS: QUEtiapine FUMARATE 25 MG TAB PO SCH (21:43)
[2017-04-19] VITALS (8 sets, daily range): BP systolic 124–140; BP diastolic 58–82; PULSE 47–82; RESP 20–22; TEMP 97.6–98.7; O2SAT 94–99
[2017-04-19] MEDS: VANCOMYCIN INJ 1,250 MG in SODIUM CHLOR 0.9% 250 ML INJ 250 ML IV SCH ×2 (01:02→12:51)
[2017-04-19] MEDS: PIPERACIL-TAZO 3.375 GM PREMIX 50 ML IV SCH ×4 (04:21→23:41)
[2017-04-19] MEDS: SODIUM CHLOR 0.9% 1000 ML INJ 1,000 ML IV SCH ×2 (07:43→10:05)
[2017-04-19] MEDS: SODIUM CHLORIDE 0.9% FLUSH 10 ML FLUSH IV FLUSH SCH ×2 (09:00→23:42)
[2017-04-19] MEDS: DOCUSATE SODIUM 50 MG/SENNA 8.6 MG TAB PO SCH ×2 (09:00→22:17)
[2017-04-19] MEDS: QUEtiapine FUMARATE 25 MG TAB PO SCH ×2 (09:58→22:17)
--- NOTE | 2017-04-19 10:00 | HHI.PR ---
Subjective Remarks in no acute distress. no fever. looks comfortable. d/w the RN. Objective Vitals Vital Signs Date Time Temp Pulse Resp B/P (MAP) Pulse Ox O2 Delivery O2 Flow Rate FiO2 04/19/17 08:00 98.5 49 20 139/73 (95) 95 04/19/17 04:30 53 04/19/17 00:00 98.5 54 20 124/68 (86) 94 04/18/17 20:00 98.0 59 20 108/60 (76) 96 04/18/17 19:26 50 04/18/17 16:29 98.1 49 17 104/57 (73) 98 04/18/17 12:00 71 04/18/17 10:53 52 I/O 04/18/17 04/18/17 04/18/17 04/19/17 04/19/17 04/19/17 07:00 15:00 23:00 07:00 15:00 23:00 Intake Total 1050 ml 876 ml 300 ml Output Total 350 ml 300 ml 600 ml 200 ml Balance 700 ml 576 ml -600 ml 300 ml -200 ml IV Total 1050 ml 876 ml 300 ml Output Urine Total 350 ml 300 ml 600 ml 200 ml # Bowel Movements 0 0 Result Diagram: 04/17/17 0911 04/17/17 0911 Imaging Last Impressions Hand X-Ray 04/16/17 0000 Signed Impressions: Service Date/Time: Sunday, April 16, 2017 21:05 - CONCLUSION: 1. Marked soft tissue swelling on the second finger with loculated air collections most characteristic of abscess. Luke Mckenna MD Objective Remarks GENERAL: This is a well-nourished, well-developed patient, in no apparent distress. CARDIOVASCULAR: Regular rate and regular rhythm without murmurs, gallops, or rubs. RESPIRATORY: Clear to auscultation. Breath sounds equal bilaterally. No wheezes , rales, or rhonchi. GASTROINTESTINAL: Abdomen soft, non-tender, nondistended. Normal, active bowel sounds MUSCULOSKELETAL: right hand is swollen. NEURO: Alert & Oriented x4 to person, place, time, situation. Moves all ext x4 Procedures Incision and drainage and excisional debridement, abscess right index finger. Medications and IVs Current Medications Clindamycin Phosphate/Dextrose 50 ml @ 100 mls/hr ONCE ONCE IV ; Start at 21:45; Stop 04/16/17 at 22:14; Status Cancel Tetanus/ Diphtheria Toxoids (Tetanus/ Diphtheria Tox Adult) 0.5 ml ONCE ONCE IM Last administered on 04/16/17 22:04; Start 04/16/17 at 21:45; Stop 04/16/17 at 21:46; Status DC Clindamycin Phosphate 900 mg/ Sodium Chloride 106 ml @ 212 mls/hr ONCE ONCE IV Last administered on 04/16/17 22:31; Start 04/16/17 at 22:00; Stop at 22:29; Status DC Vancomycin HCl 1000 mg/Sodium Chloride 250 ml @ 250 mls/hr ONCE ONCE IV Last administered on 04/17/17 00:23; Start 04/16/17 at 22:15; Stop 04/16/17 at 23: 14; Status DC Sodium Chloride 1,000 ml @ 100 mls/hr Q10H IV Last administered on 04/18/17 11:43; Start 04/16/17 at 22:37 Sodium Chloride (NS Flush) 2 ml UNSCH PRN IV FLUSH FLUSH AFTER USING IV ACCESS ; Start 04/16/17 at 22:45 Sodium Chloride (NS Flush) 2 ml BID IV FLUSH Last administered on 04/17/17 21 :00; Start 04/17/17 at 09:00 Acetaminophen (Tylenol) 650 mg Q4H PRN PO TEMP > 100.4 Last administered on 04:14; Start 04/16/17 at 22:45 Ondansetron HCl (Zofran Inj) 4 mg Q6H PRN IVP NAUSEA OR VOMITING; Start at 22:45 Naloxone HCl (Narcan Inj) 0.4 mg UNSCH PRN IV PUSH SEE LABEL COMMENTS; Start 04/16/17 at 22:45 Senna/Docusate Sodium (Raquel-Colace) 1 tab BID PO Last administered on 08:54; Start 04/17/17 at 09:00 Magnesium Hydroxide (Milk Of Magnesia Liq) 30 ml Q12H PRN PO Mild constipation ; Start 04/16/17 at 22:45 Sennosides (Senokot) 17.2 mg Q12H PRN PO Moderate constipation; Start 04/16/17 at 22:45 Bisacodyl (Dulcolax Supp) 10 mg DAILY PRN RECTAL SEVERE CONSITIPATION/ IF NPO; Start 04/16/17 at 22:45 Lactulose (Lactulose Liq) 30 ml DAILY PRN PO SEVERE CONSITIPATION/ IF PO; Start 04/16/17 at 22:45 Pharmacy Profile Note 0 ml @ 0 mls/hr UNSCH OTHER ; Start 04/16/17 at 22:45 Vancomycin HCl 1000 mg/Sodium Chloride 250 ml @ 250 mls/hr Q12H IV ; Start 02/22 at 10:00; Status UNV Piperacillin Sod/ Tazobactam Sod 50 ml @ 100 mls/hr Q6H IV Last administered on 04/18/17t 23:32; Start 04/16/17 at 23:00 Vancomycin HCl 1500 mg/Sodium Chloride 515 ml @ 250 mls/hr DAILY@0100 IV Last administered on 04/17/17 02:48; Start 04/17/17 at 01:00; Stop 04/17/17 at 04 :00; Status DC Lactated Ringer's 1,000 ml @ 30 mls/hr Q24H PRN IV SEE LABEL COMMENTS; Start 04/17/17 at 06:00; Stop 04/20/17 at 05:59 Sodium Chloride 500 ml @ 30 mls/hr [id number] PRN IV SEE LABEL COMMENTS; Start at 06:00; Stop 04/20/17 at 05:59 Metoprolol Tartrate (Lopressor) 25 mg FIELD PRODUCER PRN PO SEE LABEL COMMENTS; Start 04/17/17 at 06:00; Stop 04/20/17 at 05:59 Povidone Iodine (Betadine 5% Antisepsis Kit) 1 applic FIELD PRODUCER PRN EACH NARE SEE LABEL COMMENTS; Start 04/17/17 at 06:00; Stop 04/20/17 at 05:59 Chlorhexidine Gluconate (Chlorhexidine 2% Cloth) 3 pack FIELD PRODUCER PRN TOPICAL SEE LABEL COMMENTS; Start 04/17/17 at 06:00; Stop 04/20/17 at 05:59 Insulin Human Regular (NovoLIN R INJ) See Protocol Table ... FIELD PRODUCER PRN SQ SEE PROTOCOL TABLE; Start 04/17/17 at 06:00; Stop 04/20/17 at 05:59 Neomycin/Polymyxin (Neosporin G.u. Irr) 2 ml STK-MED ONCE .ROUTE ; Start at 14:06; Stop 04/17/17 at 14:07; Status DC Lidocaine HCl (Xylocaine 2% Inj) 50 ml STK-MED ONCE .ROUTE ; Start 04/17/17 at 14:10; Stop 04/17/17 at 14:11; Status DC Bupivacaine HCl (Marcaine Pf 0.5% Inj) 30 ml STK-MED ONCE .ROUTE ; Start at 14:10; Stop 04/17/17 at 14:11; Status DC Bacitracin (Baciguent Oint) 15 applic STK-MED ONCE .ROUTE Last administered on 04/17/17 15:51; Start 04/17/17 at 15:51; Stop 04/17/17 at 15:52; Status DC Miscellaneous Information ALL NURSING DEPARTME... UNSCH PRN .XX SEE LABEL COMMENTS; Start 04/17/17 at 16:08; Stop 04/18/17 at 16:07; Status DC Vancomycin HCl 1250 mg/Sodium Chloride 262.5 ml @ 250 mls/hr Q12H IV Last administered on 04/19/17 01:02; Start 04/18/17 at 13:00 Miscellaneous Information SPECIFIC LAB TO BE CHINYERE... ONCE ONCE .XX ; Start at 00:45; Stop 04/20/17 at 00:46 Quetiapine Fumarate (SEROquel) 25 mg BID PO Last administered on 04/18/17 21: 43; Start 04/18/17 at 21:00 A/P Assessment and Plan A/P 1. Right index finger cellulitis/abscess Patient reports sustaining a snake bite however no puncture wounds are present s/p Incision and drainage and excisional debridement, abscess right index finger. Blood cultures negative so far. follow the wound cultures. continue Vancomycin/Zosyn hand surgery following. 2. Paranoid schizophrenia/Hanna act Unclear what medications patient takes, he is unable to provide this information Psychiatry consulted ( d/w Dr. Espinosa). Discharge Planning when wound culture is resulted and cleared by hand surgery . hanna at in place. likely discharge to psych . Km Kohler MD Apr 19, 2017 10:00
--- NOTE | 2017-04-19 13:03 | HHI.PYPN ---
Subjective Remarks Patient was seen today for psychiatric reevaluation. Chart reviewed. Case discussed with nursing charge, reports that the patient has been at times loud, agitated and verbally hostile. Patient was also discussed with Dr. Kohler, who expresses his concern of due to noncompliant with psychotropics the patient most probably has been not taking good care of himself and his medical conditions and putting himself in danger. On psychiatric evaluation patient is found sleeping, at the beginning oppositional, persisting, irritable, stating that he doesn't want to be admitted in psychiatry he does want to take medications. With redirection and reassurance patient become more engageable. She has a clear tardive dyskinesia, with incoherent speech at time, but mostly logical, coherent and relevant. Patient says that he has chronic schizophrenia , multiple psychiatric hospitalizations, but he has not been taking medications in the last months. She denies suicidal and homicidal ideation, but refused to talk about perceptual disturbances stating that he doesn't want to talk about that. Finally, the patient accepts to take Seroquel and been transferred to psychiatry to continue medical care and psychiatric monitorization. Patient is fully oriented 3, no gross cognitive impairment present. Review of Systems Except as stated in HPI: all other systems reviewed are Neg Mental Status Examination Appearance: Appropriate Consciousness: Alert Orientation: x4 Motor Activity: Normal gait Speech: Unremarkable Language: Adequate Fund of Knowledge: Adequate Attention and Concentration: Adequate Memory: Unremarkable Mood: Appropriate Affect: Appropriate Thought Process & Associations: Loose associations, Disorganized Thought Content: Bizarre thinking Hallucination Type: None Delusion Type: None Suicidal Ideation: No Suicidal Plan: No Suicidal Intention: No Homicidal Ideation: No Homicidal Plan: No Homicidal Intention: No Insight: Fair Judgment: Impulsive Results Labs Date/Time Source Procedure Growth Status 04/16/17 21:45 Blood Peripheral Aerobic Blood Culture - Preliminary NO GROWTH IN 3 DAYS Resulted 04/16/17 21:45 Blood Peripheral Anaerobic Blood Culture - Preliminary NO GROWTH IN 3 DAYS Resulted 04/17/17 15:34 Abscess Finger Fungal Smear - Final NO FUNGAL ELEMENTS SEEN. Resulted 04/17/17 15:34 Abscess Finger Fungal Culture Pending Resulted Vitals/IOs Vital Signs Date Time Temp Pulse Resp B/P (MAP) Pulse Ox O2 Delivery O2 Flow Rate FiO2 04/19/17 10:18 47 04/19/17 08:00 98.5 20 139/73 (95) 95 04/17/17 20:25 21 04/17/17 17:00 Room Air 04/17/17 16:45 2 Intake and Output 04/19/17 04/19/17 04/20/17 08:00 16:00 00:00 Intake Total 300 ml 950 ml Output Total 200 ml Balance 100 ml 950 ml Assessment & Plan Problem List: (1) Schizophrenia ICD Codes: F20.9 - Schizophrenia, unspecified Assessment & Plan: Due to extensive history of schizophrenia, recent episode of agitation, disorganized and agitated behavior, noncompliant with psychotropics medication for underlying medical illnesses, and due to potential danger to himself the patient will be admitted in psychiatry to continue his medical treatment and also psychiatric monitorization and treatment. Case was discussed with primary doctor. Continue Seroquel 20 mg twice a day. Assessment & Plan Estimated LOS: days Justification for Cont. Inpt. Patient needs psychiatric admission for stabilization and safety. Brian Espinosa MD Apr 19, 2017 13:03
[2017-04-20] VITALS (7 sets, daily range): BP systolic 109–159; BP diastolic 65–76; PULSE 48–60; RESP 18; TEMP 97.6–98.2; O2SAT 96–99
[2017-04-20] MEDS ORDERED: PHARMACY ORDERED LAB ONE (00:45)
[2017-04-20] MEDS: VANCOMYCIN INJ 1,250 MG in SODIUM CHLOR 0.9% 250 ML INJ 250 ML IV SCH (01:59)
[2017-04-20] MEDS: SODIUM CHLOR 0.9% 1000 ML INJ 1,000 ML IV SCH (02:05)
[2017-04-20] MEDS: PIPERACIL-TAZO 3.375 GM PREMIX 50 ML IV SCH ×2 (05:01→10:54)
[2017-04-20] MEDS: DOCUSATE SODIUM 50 MG/SENNA 8.6 MG TAB PO SCH (08:28)
[2017-04-20] MEDS: QUEtiapine FUMARATE 25 MG TAB PO SCH (08:28)
--- NOTE | 2017-04-20 09:08 | HHI.PR ---
Subjective Remarks in no acute distress. afebrile. pain seem to be fairly cotrolled. Objective Vitals Vital Signs Date Time Temp Pulse Resp B/P (MAP) Pulse Ox O2 Delivery O2 Flow Rate FiO2 04/20/17 07:45 97.9 51 18 112/68 (83) 97 04/20/17 04:15 48 04/20/17 04:00 97.6 53 18 125/75 (92) 97 04/20/17 00:10 56 04/20/17 00:00 98.2 60 18 159/76 (103) 96 04/19/17 20:00 98.1 52 20 125/82 (96) 99 04/19/17 16:00 98.7 57 20 128/82 (97) 96 04/19/17 15:00 54 04/19/17 12:00 98.4 59 20 140/69 (92) 96 04/19/17 10:18 47 I/O 04/19/17 04/19/17 04/19/17 04/20/17 04/20/17 04/20/17 07:00 15:00 23:00 07:00 15:00 23:00 Intake Total 300 ml 1670 ml Output Total 1000 ml 600 ml 400 ml Balance 300 ml 670 ml -600 ml -400 ml Intake Oral 720 ml IV Total 300 ml 950 ml Output Urine Total 1000 ml 600 ml 400 ml # Bowel Movements 1 0 0 Result Diagram: 04/17/17 0911 04/17/17 0911 Imaging Last Impressions Hand X-Ray 04/16/17 0000 Signed Impressions: Service Date/Time: Sunday, April 16, 2017 21:05 - CONCLUSION: 1. Marked soft tissue swelling on the second finger with loculated air collections most characteristic of abscess. Luke Mckenna MD Objective Remarks GENERAL: This is a well-nourished, well-developed patient, in no apparent distress. CARDIOVASCULAR: Regular rate and regular rhythm without murmurs, gallops, or rubs. RESPIRATORY: Clear to auscultation. Breath sounds equal bilaterally. No wheezes , rales, or rhonchi. GASTROINTESTINAL: Abdomen soft, non-tender, nondistended. Normal, active bowel sounds MUSCULOSKELETAL: right hand covered with clean dressing. NEURO: Alert & Oriented x4 to person, place, time, situation. Moves all ext x4 Procedures Incision and drainage and excisional debridement, abscess right index finger. Medications and IVs Inpatient Medications Acetaminophen (Tylenol) 650 mg Q4H PRN PO TEMP > 100.4 Last administered on 04:14; Start 04/16/17 at 22:45 Bisacodyl (Dulcolax Supp) 10 mg DAILY PRN RECTAL SEVERE CONSITIPATION/ IF NPO; Start 04/16/17 at 22:45 Chlorhexidine Gluconate (Chlorhexidine 2% Cloth) 3 pack EARLY [employer]IL[employer]OOD SERVICES COORDINATOR PRN TOPICAL SEE LABEL COMMENTS; Start 04/17/17 at 06:00; Stop 04/20/17 at 05:59; Status DC Clindamycin Phosphate 900 mg/ Sodium Chloride 106 ml @ 212 mls/hr ONCE ONCE IV Last administered on 04/16/17 22:31; Start 04/16/17 at 22:00; Stop at 22:29; Status DC Insulin Human Regular (NovoLIN R INJ) See Protocol Table ... EARLY CHILDHOOD SERVICES COORDINATOR PRN SQ SEE PROTOCOL TABLE; Start 04/17/17 at 06:00; Stop 04/20/17 at 05:59; Status DC Lactated Ringer's 1,000 ml @ 30 mls/hr Q24H PRN IV SEE LABEL COMMENTS; Start 04/17/17 at 06:00; Stop 04/20/17 at 05:59; Status DC Lactulose (Lactulose Liq) 30 ml DAILY PRN PO SEVERE CONSITIPATION/ IF PO; Start 04/16/17 at 22:45 Magnesium Hydroxide (Milk Of Magnesia Liq) 30 ml Q12H PRN PO Mild constipation ; Start 04/16/17 at 22:45 Metoprolol Tartrate (Lopressor) 25 mg EARLY CHILDHOOD SERVICES COORDINATOR PRN PO SEE LABEL COMMENTS; Start 04/17/17 at 06:00; Stop 04/20/17 at 05:59; Status DC Miscellaneous Information SPECIFIC LAB TO BE CHINYERE... ONCE ONCE .XX ; Start at 00:45; Stop 04/20/17 at 00:46; Status DC Naloxone HCl (Narcan Inj) 0.4 mg UNSCH PRN IV PUSH SEE LABEL COMMENTS; Start 04/16/17 at 22:45 Ondansetron HCl (Zofran Inj) 4 mg Q6H PRN IVP NAUSEA OR VOMITING; Start at 22:45 Pharmacy Profile Note 0 ml @ 0 mls/hr UNSCH OTHER ; Start 04/16/17 at 22:45 Piperacillin Sod/ Tazobactam Sod 50 ml @ 100 mls/hr Q6H IV Last administered on 04/20/17 05:01; Start 04/16/17 at 23:00 Povidone Iodine (Betadine 5% Antisepsis Kit) 1 applic EARLY CHIL[employer]OOD SERVICES COORDINATOR PRN EACH NARE SEE LABEL COMMENTS; Start 04/17/17 at 06:00; Stop 04/20/17 at 05:59; Status DC Quetiapine Fumarate (SEROquel) 25 mg BID PO Last administered on 04/20/17 08: 28; Start 04/18/17 at 21:00 Senna/Docusate Sodium (Raquel-Colace) 1 tab BID PO Last administered on 08:28; Start 04/17/17 at 09:00 Sennosides (Senokot) 17.2 mg Q12H PRN PO Moderate constipation; Start 04/16/17 at 22:45 Sodium Chloride 500 ml @ 30 mls/hr [id number] PRN IV SEE LABEL COMMENTS; Start at 06:00; Stop 04/20/17 at 05:59; Status DC Sodium Chloride (NS Flush) 2 ml BID IV FLUSH Last administered on 04/19/17 23 :42; Start 04/17/17 at 09:00 Tetanus/ Diphtheria Toxoids (Tetanus/ Diphtheria Tox Adult) 0.5 ml ONCE ONCE IM Last administered on 04/16/17 22:04; Start 04/16/17 at 21:45; Stop 04/16/17 at 21:46; Status DC Vancomycin HCl 1000 mg/Sodium Chloride 250 ml @ 250 mls/hr ONCE ONCE IV Last administered on 04/17/17 00:23; Start 04/16/17 at 22:15; Stop 04/16/17 at 23: 14; Status DC Vancomycin HCl 1250 mg/Sodium Chloride 262.5 ml @ 250 mls/hr Q12H IV Last administered on 04/20/17 01:59; Start 04/18/17 at 13:00 Vancomycin HCl 1500 mg/Sodium Chloride 515 ml @ 250 mls/hr DAILY@0100 IV Last administered on 04/17/17t 02:48; Start 04/17/17 at 01:00; Stop 04/17/17 at 04 :00; Status DC A/P Assessment and Plan A/P 1. Right index finger cellulitis/abscess Patient reports sustaining a snake bite however no puncture wounds are present s/p Incision and drainage and excisional debridement, abscess right index finger. Blood cultures negative so far. wound culture with strep. continue Vancomycin/Zosyn hand surgery following. 2. Paranoid schizophrenia/Hanna act Unclear what medications patient takes, he is unable to provide this information Psychiatry consulted ( d/w Dr. Espinosa). started on Seroquel- Discharge Planning dc to med-psych . continue IV antibiotics till wound culture is finalized. f/u; pcp, hand surgery and psych. d/w hand surgery and case management. time spent 35 min. Km Kohler MD Apr 20, 2017 09:08
[2017-04-20] MEDS: SODIUM CHLORIDE 0.9% FLUSH 10 ML FLUSH IV FLUSH SCH (10:53)
[2017-04-20] MEDS ORDERED: SERO25TA PO (11:34)
[2017-04-20] MEDS ORDERED: VANC1PLA4 IV (11:34)
[2017-04-20] MEDS ORDERED: ZOSY3.375P IV (11:34)
--- NOTE | 2017-04-20 11:37 | HHI.DS ---
Discharge Summary Admission Date Apr 16, 2017 at 22:39 Discharge Date: Apr 20, 2017 Admitting Diagnosis R index finger abscess/hand cellulitis; hanna act (1) Abscess of right index finger ICD Code: L02.511 - Cutaneous abscess of right hand Diagnosis: Principal (2) Schizophrenia ICD Code: F20.9 - Schizophrenia, unspecified Diagnosis: Principal Procedures Incision and drainage and excisional debridement, abscess right index finger. Brief History - From Admission 56-year-old male with a past medical history significant for paranoid schizophrenia was brought into the emergency department under Hanna act for refusing treatment of a right index finger swelling/infection. The patient lives in [facility] living in [place]. He reports that he was bitten by a rattlesnake "a few weeks ago." Patient reports pain in the right index finger with limited range of motion secondary to edema. He has no other complaints at this time. Laboratory values significant for a mild leukocytosis of 11.2. Hand xray significant for swelling on the second finger with loculated air collection characteristic of an abscess. CBC/BMP: 04/17/17 0911 04/20/17 0950 Significant Findings Laboratory Tests Test 04/18/17 07:30 04/20/17 00:40 04/20/17 09:50 Vancomycin Level Trough 14.9 MCG/ML (5.0-10.0) Imaging Last Impressions Hand X-Ray 04/16/17 0000 Signed Impressions: Service Date/Time: Sunday, April 16, 2017 21:05 - CONCLUSION: 1. Marked soft tissue swelling on the second finger with loculated air collections most characteristic of abscess. Luke Mckenna MD PE at Discharge GENERAL: This is a well-nourished, well-developed patient, in no apparent distress. CARDIOVASCULAR: Regular rate and regular rhythm without murmurs, gallops, or rubs. RESPIRATORY: Clear to auscultation. Breath sounds equal bilaterally. No wheezes , rales, or rhonchi. GASTROINTESTINAL: Abdomen soft, non-tender, nondistended. Normal, active bowel sounds MUSCULOSKELETAL: right hand covered with clean dressing. NEURO: Alert & Oriented x4 to person, place, time, situation. Moves all ext x4 Hospital Course patient was admitted with the right index infection. hand surgery was consulted and he underwent I/D. he was started on IV antibiotics. he was also evaluated by psychiatrist who recommended inpatient psych evaluation and treatment. he was cleared by hand surgery for discharge. he will remain on IV antibiotics till the wound culture is finalized. Pt Condition on Discharge: Stable Discharge Disposition: Disc to Psych Care Fac Discharge Time: > 30 minutes Discharge Instructions DIET: Follow Instructions for: As Tolerated, No Restrictions Activities you can perform: Regular-No Restrictions Follow up Referrals: Hand Surgery PCP Follow-up Psychiatry Adult New Medications: Piperacillin-Tazobactam Inj (Zosyn Inj) 3.375 Gram Inj 3.375 GM IV Q6HR for Infection for 3 Days, BAG 0 Refills Vancomycin/0.9 % Sod Chloride (Vancomycin 1 G/100Ml-0.9% NaCl) 1 Gram/100 Ml Plast..bag 1 GM IV BID for Infection for 3 Days, BAG 0 Refills Quetiapine (Seroquel) 25 Mg Tab 25 MG PO BID for Anxiety for 10 Days, #20 TAB 0 Refills Km Kohler MD Apr 20, 2017 11:37
== END 2017-04-20 12:46 | DRG 603 ==
LOC: NEPD 20:04 → NEDA 22:39 → N05B 23:16
PROVIDERS: ADMIT Internal Medicine; ATTEND Internal Medicine
PROC: 0HBFXZZ Excision of Right Hand Skin, External Approach (ICD-10-PCS; principal; 2017-04-17 15:13)
DX: L02.511 Cutaneous abscess of right hand (principal); F20.0 Paranoid schizophrenia; L03.011 Cellulitis of right finger; Z91.14 Patient's other noncompliance with medication regimen; G24.01 Drug induced subacute dyskinesia
CPT/HCPCS: 73130; 80048; 80053; 80202; 80307; 81001; 82550; 82552; 82565; 82948; 83605; 84484; 85025; 85610; 85730; 86403; 87015; 87040; 87070; 87102; 87116; 87147; 87186; 87205; 87206; 90471; 90714; 93005; 96374; J1100; J2250; J2405; J2543; J3010; J3370; J7030; J7040; J7050

== ENCOUNTER 2017-04-19 16:52 | Inpatient (IN) | payer MEDICARE, MEDICAID, OTHER ==
[~2017-04-19] VITALS: Ht 177.8 cm; Wt 79.3 kg
[2017-04-20] MEDS ORDERED: VANC1PLA4 IV (11:34)
[2017-04-20] MEDS ORDERED: ZOSY3.375P IV (11:34)
[2017-04-20] MEDS ORDERED: SERO25TA PO (11:34)
[2017-04-20 13:15] VITALS: BP 124/69; PULSE 57; RESP 16; TEMP 97.7; O2SAT 95
[2017-04-20] MEDS ORDERED: LORazepam 0.5 MG TAB PO PRN (17:48)
[2017-04-20] MEDS ORDERED: ALUMINUM/MAGNESIUM/SIMETH 30 ML CUP PO PRN (17:48)
[2017-04-20] MEDS ORDERED: MAGNESIUM HYDROXIDE SUSP 30 ML CUP PO PRN (17:48)
[2017-04-20] MEDS ORDERED: ACETAMINOPHEN 325 MG TAB PO PRN (17:48)
[2017-04-20] MEDS ORDERED: LORazepam 2 MG/ML VIAL IM PRN (17:48)
[2017-04-20] MEDS ORDERED: LORazepam 1 MG TAB PO PRN (18:00)
[2017-04-20] MEDS ORDERED: PIPERACILLIN-TAZOBACTAM INJ 3.375 GM VIAL IV SCH (18:00)
[2017-04-20] MEDS: NICOTINE 21 MG/24 HR PATCH T-DERMAL SCH (18:45)
[2017-04-20] MEDS: PIPERACIL-TAZO 3.375 GM PREMIX 50 ML IV SCH ×2 (20:00→21:22)
[2017-04-20] MEDS ORDERED: QUEtiapine FUMARATE 25 MG TAB PO SCH (21:00)
[2017-04-20] MEDS ORDERED: SOD CHLORIDE IV SCH (21:00)
[2017-04-20] MEDS: REMOVE OLD NICODERM (NICOTINE) PATCH T-DERMAL SCH (21:00)
[2017-04-20] MEDS ORDERED: [UNRECOGNIZED DRUG - OTHER] IV SCH (21:00)
[2017-04-20] MEDS ORDERED: VANCOMYCIN IV SCH (21:00)
[2017-04-20] MEDS: VANCOMYCIN 1,000 MG/NS 250 ML IV SCH ×2 (22:02)
[2017-04-21 06:25] VITALS: BP 134/78; PULSE 64; RESP 16; TEMP 97.2; O2SAT 100
[2017-04-21 08:48] LABS: ANION GAP 5 MEQ/L (5-15); BICARBONATE 27.8 MEQ/L (21.0-32.0); BLOOD UREA NITROGEN 11 MG/DL (7-18); CHLORIDE 107 MEQ/L (98-107); GLOMERULAR FILTRATION RATE 117 ML/MIN (>89); POTASSIUM 4.1 MEQ/L (3.5-5.1); SODIUM (NA) 140 MEQ/L (136-145)
--- NOTE | 2017-04-21 08:52 | HHI.HP ---
Provisional Diagnosis Admission Date Apr 20, 2017 at 12:53 [place] I. Schizophrenia [place] II. Deferred [place] III. Recent cellulitis/abscess of right index finger [place] IV. Limited social support, domiciled, chronic mental illness [place] V. 40 Certification of Person's Competence To Provide Express and Informed Consent I have personally examined Saurav Kothari , a person being served at [facility] on, Apr 21, 2017 08:45. Express and informed consent means consent voluntarily given in writing, by a competent person, after sufficient explanation and disclosure of the subject matter involved to enable the person to make a knowing and willful decision without any element of force, fraud, deceit, duress, or other form of constraint or coercion. This person is 18 years of age or older, is not now known to be incompetent to consent to treatment with a guardian advocate, and does not have a health care surrogate or proxy currently making medical treatment decisions. I have found this person to be one of the following: [x] Competent to provide express and informed consent, as defined above, for voluntary admission to this facility and is competent to provide express and informed consent for treatment. He/she has the consistent capacity to make well reasoned, willful, and knowing decisions concerning his or her medical or mental health treatment. The person fully and consistently understands the purpose of the admission for examination/placement and is fully capable of personally exercising all rights assured [place] Incompetent to provide express and informed consent to voluntary admission, and this is incompetent to provide express and informed consent to treatment. The person must be transferred to involuntary status and a petition for a guardian advocate filed with the Circuit Court. [] Refusing to provide express and informed consent to voluntary admission but is competent to provide express and informed consent for treatment. The person must be discharged or transferred to involuntary status. Form shall be completed within 24 hours of a person's arrival at the receiving facility and filed in the clinical record of each person: 1. Admitted on a voluntary basis 2. Permitted to provide express and informed consent to his/her own treatment 3. Allowed to transfer from involuntary to voluntary status 4. Prior to permitting a person to consent to his or her own treatment after having been previously found incompetent to consent to treatment. History of Present Illness Capacity: Has Capacity HPI Patient is a 52-year-old man, single, domiciled [facility] ( [facility]), unemployed on SSI, past psychiatric history of schizophrenia, multiple previous psychiatric hospitalizations, no previous suicide attempt or self- injurious behavior, last seen in outpatient psychiatrist years ago, history of noncompliance with treatment, who was initially put on the Hanna act for refusing treatment of right index finger infection which patient was admitted to the medical floor for abscess/cellulitis of the right index finger and while on the medical floor was noted to be agitated loud verbally hostile which psychiatry was consulted for evaluation and was noted to be disorganized at times tangential and transferred to the inpatient psychiatry for further evaluation and management. Patient was found lying in hospital bed, currently in contact precautions due to current infection, calm and cooperative in interview, noted to have speech impediment. Patient states that he had been brought to the hospital initially because he refused to accept help for restorationist Rattlesnake bite to his right hand stating that the Rattlesnake was in his room. Patient noted to be having speech impediment, likely due to accommodation of tardive dyskinesia as well as not having dentures in place. Patient's endorsed having auditory hallucinations stating "I hear voices I can' t control" and that they tell him "negative and positive "but denies that being command in nature. He denies any visual hallucinations or delusions at this time. Patient agrees to continue treatment medically and psychiatrically at this time. Past psychiatric history: Past psychiatric diagnoses schizophrenia, multiple psychiatric hospitalizations, no previous suicide attempts or self-injurious behavior. Patient reports having seen a psychiatrist years ago reports previous medications medication trials include Haldol as well as other medications that story writer was unable to comprehend due to his speech impediment. Denies history of abuse Family psychiatric history: Denies Substance use history: Denies Past mental history: Denies Allergies: NKDA Social history: Single, domiciled an assisted living facility ([facility]) allergies, unemployed on SSI benefits. Review of Systems Except as stated in HPI: all other systems reviewed are Neg Past Psych History Psychological trauma history Denies Violence risk - others (6 mos) Low Violence risk - self (6 mos) Low Substance Abuse History Drugs/Alcohol past 12 months Denies Past Family Social History Coded Allergies: No Known Allergies (Verified Allergy, Unknown, 04/16/17) Active Scripts Quetiapine (Seroquel) 25 Mg Tab, 25 MG PO BID for Anxiety for 10 Days, #20 TAB 0 Refills Prov:Km Kohler MD 04/20/17 Vancomycin/0.9 % Sod Chloride (Vancomycin 1 G/100Ml-0.9% NaCl) 1 Gram/100 Ml Plast..bag, 1 GM IV BID for Infection for 3 Days, BAG 0 Refills Prov:Km Kohler MD 04/20/17 Piperacillin-Tazobactam Inj (Zosyn Inj) 3.375 Gram Inj, 3.375 GM IV Q6HR for Infection for 3 Days, BAG 0 Refills Prov:Km Kohler MD 04/20/17 Current Medications Medications (Trade) Dose Ordered Sig/Jonas Route Start Time Stop Time Status Last Admin (Ativan) 1 mg Q6H PRN PO 04/20/17 18:00 (Tylenol) 650 mg Q4H PRN PO 04/20/17 17:48 04/20/17 20:41 (Milk Of Magnesia Liq) 30 ml DAILY PRN PO 04/20/17 17:48 (Mag-Al Plus Susp Liq) 30 ml Q6H PRN PO 04/20/17 17:48 (Habitrol 21 Mg Patch.24 Hr) 1 patch DAILY T-DERMAL 04/20/17 18:45 Piperacillin Sod/ Tazobactam Sod 50 ml @ 100 mls/hr Q6H IV 04/20/17 20:00 04/20/17 21:22 Miscellaneous Information 1 HS T-DERMAL 04/20/17 21:00 Vancomycin HCl 1000 mg/Sodium Chloride 250 ml @ 250 mls/hr Q12HR IV 04/20/17 21:00 04/20/17 22:02 (SEROquel) 50 mg BID PO 04/21/17 09:00 Family Psych History Denies Social History Single, domiciled an assisted living facility ([facility]) allergies, unemployed on [employer] benefits. Patient's Strengths (min. 2) Verbal and communicative Physical Exam Patient not noted to be in acute distress, no gross motor abnormalities, noted to have involuntary movement of his lips suggestive of tardive dyskinesia, no noted psychomotor retardation or agitation. Vital Signs Vital Signs Date Time Temp Pulse Resp B/P (MAP) Pulse Ox O2 Delivery O2 Flow Rate FiO2 04/21/17 06:25 97.2 64 16 134/78 (96) 100 I/O 04/21/17 04/21/17 04/22/17 08:00 16:00 00:00 Intake Total 0 ml Balance 0 ml Lab Results Test 04/21/17 07:44 Mental Status Examination Appearance: Appropriate Consciousness: Alert Orientation: Person, Place, Date/Time Speech: Speech impediment Language: Adequate Fund of Knowledge: Inadequate Attention and Concentration: Adequate Memory: Unremarkable Mood: Appropriate Affect: Other Thought Process & Associations: Disorganized (at times), Tangential Thought Content: Hallucinations Hallucination Type: Auditory Delusion Type: None Suicidal Ideation: No Suicidal Plan: No Suicidal Intention: No Homicidal Ideation: No Homicidal Plan: No Homicidal Intention: No Insight: Fair Judgment: Impulsive Assessment & Plan Problem List: (1) Schizophrenia ICD Codes: F20.9 - Schizophrenia, unspecified Assessment & Plan Estimated LOS: 5-7 days. Patient is a 56-year-old graphic [place]inamese man who carries a diagnosis schizophrenia recently admitted to the medical floor for abscess/cellulitis of the right index finger which is currently receiving treatment for was noted to be disorganized and agitated verbally hostile on the medical floor transferred to inpatient psychiatry for evaluation and management. Initially was on a Hanna act providers around to the hospital refusing treatment of the same. Patient this time noted to have some tangentiality and disorganized at times but also noted to have a speech impediment which makes it difficult to understand. Patient this time continues to endorse auditory hallucinations about accepting treatment psychiatrically and medically. We'll increase quetiapine to 50 mg by mouth twice a day for psychosis with upper titration as needed. Continue with issues as per primary medical team. Discharge planning in progress Discharge Planning At risk for further decompensation if at lower level of care Jose Roberto Randolph MD Apr 21, 2017 08:52
[2017-04-21 08:55] LABS: HDL CHOLESTEROL 38.3 MG/DL (40.0-60.0); LDL CHOLESTEROL 113 MG/DL (0-99)
[2017-04-21] MEDS: NICOTINE 21 MG/24 HR PATCH T-DERMAL SCH (09:00)
[2017-04-21] MEDS: QUEtiapine FUMARATE 25 MG TAB PO SCH ×2 (09:25→20:38)
[2017-04-21] MEDS: PIPERACIL-TAZO 3.375 GM PREMIX 50 ML IV SCH ×3 (09:28→20:25)
[2017-04-21] MEDS: VANCOMYCIN 1,000 MG/NS 250 ML IV SCH ×2 (10:21)
--- NOTE | 2017-04-21 11:24 | PD.CONS ---
[facility] By Primary Care Physician Unknown Diagnoses: History of Present Illness History from patient, review of medical records, and nursing staff. Patient reported that he was bit by a snake a while ago. He is not clear on when. He was admitted to medical service from April 16, 2017 to April 20, 2017. He underwent incision and drainage of his finger abscess by hand surgeon. Wound cultures were growing strep and MRSA. He was receiving vancomycin and Zosyn IV while in hospital. Patient has history of schizophrenia and is transferred to the medical psychiatry unit yesterday. Patient himself denies any acute symptoms. Overnight events reviewed. However, he does report diarrhea for the past few days. He states though that he only had diarrhea about once or twice a day. Review of Systems Except as stated in HPI: all other systems reviewed are Neg Past Family Social History Allergies: Coded Allergies: No Known Allergies (Verified Allergy, Unknown, 04/16/17) Past Medical History History of CVA. With residual slurred speech and left facial droop Past Surgical History Appendectomy Family History Patient denies any family history of any medical issues Social History States he smokes about a pack a day. Denies any alcohol abuse or drugs abuse. Lives at [facility] in [place]. He states they do have nursing staff to give him medications. Physical Exam Vital Signs Vital Signs Date Time Temp Pulse Resp B/P (MAP) Pulse Ox O2 Delivery O2 Flow Rate FiO2 04/21/17 06:25 97.2 64 16 134/78 (96) 100 04/20/17 13:15 97.7 57 16 124/69 (87) 95 Physical Exam GENERAL: This is a well-nourished, well-developed patient, in no apparent distress. Slurred speech present SKIN: No rashes, ecchymoses or lesions. Cool and dry. HEAD: Atraumatic. Normocephalic. No temporal or scalp tenderness. EYES: No scleral icterus. No injection or drainage. ENT: Nose without bleeding, purulent drainage or septal hematoma.. Airway patent. NECK: Trachea midline. No JVD CARDIOVASCULAR: Regular rate and rhythm without murmurs, gallops, or rubs. RESPIRATORY: Clear to auscultation. Breath sounds equal bilaterally. No wheezes , rales, or rhonchi. GASTROINTESTINAL: Abdomen soft, non-tender, nondistended. . No guarding. MUSCULOSKELETAL: Extremities without clubbing, cyanosis, or edema. . No calf tenderness. right index finger in surgical dressing post op NEUROLOGICAL: Awake and alert. Motor and sensory grossly within normal limits. Slurred speech. Left facial droop. Chronic. Laboratory Laboratory Tests Test 04/21/17 07:44 Blood Urea Nitrogen 11 Creatinine 0.82 Random Glucose 88 Calcium Level 9.1 Sodium Level 140 Potassium Level 4.1 Chloride Level 107 Carbon Dioxide Level 27.8 Anion Gap 5 Estimat Glomerular Filtration Rate 117 Triglycerides Level 90 Cholesterol Level 169 LDL Cholesterol 113 HDL Cholesterol 38.3 Cholesterol/HDL Ratio 4.41 Result Diagram: 04/21/17 0744 Assessment and Plan Assessment and Plan Impression: Right index finger abscess growing strep and MRSA History of CVA Chronic tobacco abuse Plan: Continue contact isolation. Continue vancomycin per creatinine clearance and levels. Continue Zosyn for now. Strep sensitivity pending Send stool for C. difficile Infectious disease consult for duration of antibiotics and discharge planning. Hand surgery consulted-for follow up care- reviewed prior notes Resume rest of his current meds. DVT prophylaxis with Lovenox. Discussed Condition With patient, his nurse Laina Hanson MD Apr 21, 2017 11:24
[2017-04-21 11:38] LABS: HEMOGLOBIN A1a 1.1 %; HEMOGLOBIN A1b 1.6 %; HEMOGLOBIN F 0.2 %; HEMOGLOBIN P3 3.6 %
[2017-04-21] MEDS: ENOXAPARIN SODIUM 40 MG/0.4 ML SYRINGE SQ SCH (12:09)
[2017-04-21 15:08] LABS: C. DIFF EPI 027 PRESUMPTIVE NEGATIVE (NEGATIVE)
[2017-04-21] MEDS ORDERED: Vancomycin Consult Pharmacy 1 EA OTHER SCH (15:30)
[2017-04-21 18:12] VITALS: BP 134/76; PULSE 55; RESP 16; TEMP 97.2; O2SAT 98
--- NOTE | 2017-04-21 19:43 | PD.ID.CON ---
History of Present Illness Service ID Consult Requested By Dr Hanson Reason for Consult L index finger infection, duration of treatment Primary Care Physician Unknown Diagnoses: History of Present Illness 56 yo male with history of paranoid schizophrenia admitted to psychaitry he is a poor hostorian He was brought into the emergency department under a Hanna Act for refusing treatment of the right index finger swelling and infection. The patient gives a history of questionable rattlesnake bite to the right index finger about a month ago On 04/17/2017. sp Incision and drainage and excisional debridement, abscess right index finger. by Dr Hermosillo, Wound cultures were growing strep and MRSA. He was receiving vancomycin and Zosyn IV while in hospital. Review of Systems ROS Limitations: Poor Historian Past Family Social History Allergies: Coded Allergies: No Known Allergies (Verified Allergy, Unknown, 04/16/17) Active Ordered Medications Medications where reviewed in EMR Antibiotics Include: zosyn vanco Physical Exam Vital Signs Vital Signs Date Time Temp Pulse Resp B/P (MAP) Pulse Ox O2 Delivery O2 Flow Rate FiO2 04/21/17 18:12 97.2 55 16 134/76 (95) 98 04/21/17 06:25 97.2 64 16 134/78 (96) 100 Physical Exam CONSTITUTIONAL/GENERAL: This is an adequately nourished patient, in no apparent distress. TUBES/LINES/DRAINS: SKIN: No jaundice, rashes, or lesions. Ecchymoses on upper extremities. No wounds seen anteriorly. Skin temperature appropriate. Not diaphoretic. HEAD: Atraumatic. Normocephalic. EYES: Pupils equal and round and reactive. Extraocular motions intact. No scleral icterus. No injection or drainage. Fundi not examined. ENT: Hearing grossly normal. Nose without bleeding or purulent drainage. Throat without visible erythema, exudates, masses, or lesions. NECK: Trachea midline. Supple, nontender. No palpable thyroid enlargement or nodularity. CARDIOVASCULAR: Regular rate and rhythm without murmurs, gallops, or rubs. No JVD. Peripheral pulses symmetric. RESPIRATORY/CHEST: Symmetric, unlabored respirations. Clear to auscultation. Breath sounds equal bilaterally. No wheezes, rales, or rhonchi. GASTROINTESTINAL: Abdomen soft, non-tender, nondistended. No hepato-splenomegaly , or palpable masses. No guarding. Bowel sounds present. GENITOURINARY: Without palpable bladder distension. Goodwin catheter in place. MUSCULOSKELETAL: Extremities without clubbing, cyanosis, or edema. No joint tenderness or effusion noted. No calf tenderness. No mottling or clubbing. R index fingeer with clean granulating wound No ascending cellulitis or lymphangitsi LYMPHATICS: No palpable cervical or supraclavicular adenopathy. NEUROLOGICAL: Awake and alert. Motor and sensory grossly within normal limits. Follows commands. Clear speech Moves all extremities. PSYCHIATRIC: withdrawn Laboratory Laboratory Tests Test 04/21/17 07:44 04/21/17 12:47 Blood Urea Nitrogen 11 Creatinine 0.82 Random Glucose 88 Calcium Level 9.1 Sodium Level 140 Potassium Level 4.1 Chloride Level 107 Carbon Dioxide Level 27.8 Anion Gap 5 Estimat Glomerular Filtration Rate 117 Hemoglobin A1c 5.7 Triglycerides Level 90 Cholesterol Level 169 LDL Cholesterol 113 HDL Cholesterol 38.3 Cholesterol/HDL Ratio 4.41 Stool C. difficile Toxin (PCR) NEGATIVE Stl C. difficile Toxin Epiderm 027 PRESUMPTIVE NEGATIVE Result Diagram: 04/21/17 0744 Assessment and Plan Assessment and Plan R index finger abscess sp I+D, MRSA, strep - MRSA clina S dc zosyn cont vanco can be swithced to oral abx (clinda vs keflex + doxycylin) to complete 10-14 days of tx Fatou Barbour MD Apr 21, 2017 19:42
[2017-04-21] MEDS: REMOVE OLD NICODERM (NICOTINE) PATCH T-DERMAL SCH (21:00)
[2017-04-21] MEDS: VANCOMYCIN INJ 1,250 MG in SODIUM CHLOR 0.9% 250 ML INJ 250 ML IV SCH (21:22)
[2017-04-22 05:55] VITALS: BP 111/62; PULSE 52; RESP 17; TEMP 97.2; O2SAT 95
[2017-04-22] MEDS: QUEtiapine FUMARATE 25 MG TAB PO SCH (08:46)
[2017-04-22] MEDS: VANCOMYCIN INJ 1,250 MG in SODIUM CHLOR 0.9% 250 ML INJ 250 ML IV SCH ×2 (09:00→20:55)
[2017-04-22] MEDS ORDERED: QUEtiapine FUMARATE 25 MG TAB PO SCH (09:00)
[2017-04-22] MEDS: NICOTINE 21 MG/24 HR PATCH T-DERMAL SCH (09:00)
--- NOTE | 2017-04-22 09:04 | HHI.PYPN ---
Subjective Remarks Patient was seen today for psychiatric reevaluation. Case was widely discussed with nurse in charge and also with home health care social worker Kandy. Patient is found in his bed, awake, alert, he is calm, and cooperative. Patient reports feeling much better, he says that today he is getting with his girlfriend "I want to be but it all of you". He also says that he is a little bit scare of "the snake that bit me, I can hear it". He reports hearing voices, he says that the voices talk to him, usually telling him good things. Patient is oriented 3, he is cooperative with the staff, no agitation or aggressive behavior reported. He is compliant with his medications, no significant side effects reported. Review of Systems Psychiatric: COMPLAINS OF: Hallucinations Except as stated in HPI: all other systems reviewed are Neg Mental Status Examination Appearance: Appropriate Consciousness: Alert Orientation: Person, Place, Date/Time Speech: Speech impediment Language: Adequate Fund of Knowledge: Inadequate Attention and Concentration: Adequate Memory: Unremarkable Mood: Appropriate Affect: Other Thought Process & Associations: Disorganized (at times), Tangential Thought Content: Hallucinations Hallucination Type: Auditory Delusion Type: None Suicidal Ideation: No Suicidal Plan: No Suicidal Intention: No Homicidal Ideation: No Homicidal Plan: No Homicidal Intention: No Insight: Fair Judgment: Impulsive Results Labs Test 04/21/17 12:47 Stool C. difficile Toxin (PCR) NEGATIVE Stl C. difficile Toxin Epiderm 027 PRESUMPTIVE NEGATIVE Vitals/IOs Vital Signs Date Time Temp Pulse Resp B/P (MAP) Pulse Ox O2 Delivery O2 Flow Rate FiO2 04/22/17 05:55 97.2 52 17 111/62 (78) 95 Intake and Output 04/22/17 04/22/17 04/23/17 08:00 16:00 00:00 Intake Total 0 ml Output Total 370 ml Balance 0 ml -370 ml Assessment & Plan Problem List: (1) Schizophrenia ICD Codes: F20.9 - Schizophrenia, unspecified Assessment & Plan: Patient remains disorganized, agitation, at times incoherent , increased Seroquel 200 mg twice a day. Infectious disease consult appreciated. Assessment & Plan Estimated LOS: days Justification for Cont. Inpt. Patient remains psychotic, with continue psychiatric hospitalization for stabilization. Brian Espinosa MD Apr 22, 2017 09:04
--- NOTE | 2017-04-22 09:46 | HHI.PR ---
Subjective Remarks No new complaints Seen while taking a shower Discussed with RN patient Right hand is dressed Objective Vitals Vital Signs Date Time Temp Pulse Resp B/P (MAP) Pulse Ox O2 Delivery O2 Flow Rate FiO2 04/22/17 05:55 97.2 52 17 111/62 (78) 95 04/21/17 18:12 97.2 55 16 134/76 (95) 98 I/O 04/21/17 04/21/17 04/21/17 04/22/17 04/22/17 04/22/17 07:00 15:00 23:00 07:00 15:00 23:00 Intake Total 240 ml 940 ml 1200 ml 0 ml Output Total 370 ml Balance 240 ml 940 ml 1200 ml 0 ml -370 ml Intake Oral 240 ml 600 ml 1200 ml 0 ml IV Total 340 ml Output Urine Total 370 ml # Voids 2 2 4 Result Diagram: 04/21/17 0744 Other Results Laboratory Tests Test 04/21/17 07:44 04/21/17 12:47 Blood Urea Nitrogen 11 MG/DL Creatinine 0.82 MG/DL Random Glucose 88 MG/DL Calcium Level 9.1 MG/DL Sodium Level 140 MEQ/L Potassium Level 4.1 MEQ/L Chloride Level 107 MEQ/L Carbon Dioxide Level 27.8 MEQ/L Anion Gap 5 MEQ/L Estimat Glomerular Filtration Rate 117 ML/MIN Hemoglobin A1c 5.7 % Triglycerides Level 90 MG/DL Cholesterol Level 169 MG/DL LDL Cholesterol 113 MG/DL HDL Cholesterol 38.3 MG/DL Cholesterol/HDL Ratio 4.41 RATIO Stool C. difficile Toxin (PCR) NEGATIVE Stl C. difficile Toxin Epiderm 027 PRESUMPTIVE NEGATIVE Objective Remarks GENERAL: Awake alert talkative and cooperative SKIN: Warm and dry. Right hand is dressed HEAD: Atraumatic. Normocephalic. EYES: Pupils equal and round. No scleral icterus. No injection or drainage. Extraocular muscles intact ENT: No nasal bleeding or discharge. Mucous membranes pink and moist. Tongue is midline NECK: Trachea midline. No JVD. neck is supple CARDIOVASCULAR: Regular rate and rhythm. S1 and S2 no S3 or S4 no heave or thrill or rub or gallop RESPIRATORY: No accessory muscle use. Clear to auscultation. Breath sounds equal bilaterally. GASTROINTESTINAL: Abdomen soft, non-tender, nondistended. Hepatic and splenic margins not palpable. MUSCULOSKELETAL: Extremities without clubbing, cyanosis, or edema. No obvious deformities. Right hand dressed NEUROLOGICAL: Awake and alert. No obvious cranial nerve deficits. Motor grossly within normal limits. Five out of 5 muscle strength in the arms and legs. Normal speech. PSYCHIATRIC: INAppropriate mood and affect; insight and judgment ABnormal. Medications and IVs Current Medications Quetiapine Fumarate (SEROquel) 25 mg BID PO Last administered on 04/20/17 20: 42; Start 04/20/17 at 21:00; Stop 04/21/17 at 08:35; Status DC Lorazepam (Ativan) 1 mg Q6H PRN PO MODERATE TO SEVERE ANXIETY; Start 04/20/17 at 18:00 Lorazepam (Ativan) 0.5 mg Q12H PRN PO MODERATE TO SEVERE ANXIETY; Start at 17:48; Status UNV Lorazepam (Ativan Inj) 0.5 mg Q12H PRN IM MODERATE TO SEVERE ANXIETY; Start at 17:48; Status UNV Acetaminophen (Tylenol) 650 mg Q4H PRN PO Pain 1-5 or Temp >101F Last administered on 04/20/17 20:41; Start 04/20/17 at 17:48 Magnesium Hydroxide (Milk Of Magnesia Liq) 30 ml DAILY PRN PO CONSTIPATION; Start 04/20/17 at 17:48 Al Hydrox/Mg Hydrox/Simethicone (Mag-Al Plus Susp Liq) 30 ml Q6H PRN PO DYSPEPSIA; Start 04/20/17 at 17:48 Nicotine (Habitrol 21 Mg Patch.24 Hr) 1 patch DAILY T-DERMAL ; Start 04/20/17 at 18:45 Piperacillin Sod/ Tazobactam Sod (Zosyn 3.375 Gm Vial) 3.375 gm Q6HR IV ; Start 04/20/17 at 18:00; Stop 04/20/17 at 18:47; Status DC Non-Formulary Medication 1 gm BID IV ; Start 04/20/17 at 21:00; Stop 04/20/17 at 21:00; Status DC Piperacillin Sod/ Tazobactam Sod 50 ml @ 100 mls/hr Q6H IV Last administered on 04/21/17 20:25; Start 04/20/17 at 20:00; Stop 04/22/17 at 01:47; Status DC Miscellaneous Information 1 HS T-DERMAL ; Start 04/20/17 at 21:00 Vancomycin HCl 1000 mg/Sodium Chloride 250 ml @ 250 mls/hr Q12HR IV Last administered on 04/21/17 10:21; Start 04/20/17 at 21:00; Stop 04/21/17 at 15 :31; Status DC Quetiapine Fumarate (SEROquel) 50 mg BID PO Last administered on 04/22/17 08: 46; Start 04/21/17 at 09:00; Stop 04/22/17 at 08:59; Status DC Enoxaparin Sodium (Lovenox Inj) 40 mg Q24H SQ Last administered on 04/21/17 12:09; Start 04/21/17 at 12:00 Pharmacy Profile Note 0 ml @ 0 mls/hr UNSCH OTHER ; Start 04/21/17 at 15:30 Vancomycin HCl 1250 mg/Sodium Chloride 262.5 ml @ 250 mls/hr Q12H IV Last administered on 04/21/17 21:22; Start 04/21/17 at 21:00 Miscellaneous Information SPECIFIC LAB TO BE DRAWN:VANCOMYCIN TROUGH DATE TO... ONCE ONCE .XX ; Start 04/23/17 at 08:45; Stop 04/23/17 at 08:46 Quetiapine Fumarate (SEROquel) 50 mg UNSCH X1 PO ; Start 04/22/17 at 09:00; Stop 04/22/17 at 12:00 Quetiapine Fumarate (SEROquel) 100 mg BID PO ; Start 04/22/17 at 21:00 A/P Assessment and Plan Impression: Right index finger abscess growing strep and MRSA on vancomycin IV currently History of CVA Chronic tobacco abuse Plan: Continue contact isolation. Continue vancomycin per creatinine clearance and levels. Infectious disease consult for duration of antibiotics and discharge planning. Hand surgery consulted-for follow up care- reviewed prior notes Resume rest of his current meds. DVT prophylaxis with Lovenox. Abel Oseguera DO Apr 22, 2017 09:46
[2017-04-22] MEDS: ENOXAPARIN SODIUM 40 MG/0.4 ML SYRINGE SQ SCH (11:16)
--- NOTE | 2017-04-22 17:22 | HHI.PR ---
Subjective Remarks denies any pain no fever Objective Vital Signs Date Time Temp Pulse Resp B/P (MAP) Pulse Ox O2 Delivery O2 Flow Rate FiO2 04/22/17 05:55 97.2 52 17 111/62 (78) 95 04/21/17 18:12 97.2 55 16 134/76 (95) 98 I/O 04/21/17 04/21/17 04/21/17 04/22/17 04/22/17 04/22/17 07:00 15:00 23:00 07:00 15:00 23:00 Intake Total 240 ml 940 ml 1200 ml 0 ml 250 ml 840 ml Output Total 370 ml Balance 240 ml 940 ml 1200 ml 0 ml -120 ml 840 ml Intake Oral 240 ml 600 ml 1200 ml 0 ml 840 ml IV Total 340 ml 250 ml Output Urine Total 370 ml # Voids 2 2 4 2 right index finger: dressing in place wound clean and dry granulating well no drainage stiffness of the PIP joint noted cultures: MRSA Result Diagram: 04/21/17 0744 Assessment and Plan Assessment and Plan 56 year old male s/p incision and drainage right index finger abscess Plan: dressing changed continue antibiotics based on ID recommendations dressing changes once in two days range of motion exercises hand surgery will follow. John Hermosillo MD Apr 22, 2017 17:22
[2017-04-22 17:43] VITALS: BP 121/73; PULSE 65; RESP 18; TEMP 98.5; O2SAT 97
[2017-04-22] MEDS: REMOVE OLD NICODERM (NICOTINE) PATCH T-DERMAL SCH (19:32)
[2017-04-22] MEDS: QUEtiapine FUMARATE 100 MG TAB PO SCH (20:55)
[2017-04-23 05:40] VITALS: BP 117/68; PULSE 57; RESP 16; TEMP 98.2; O2SAT 99
--- NOTE | 2017-04-23 07:51 | HHI.PR ---
Subjective Remarks Patient in nad. No fever or chills. Pain is controlled. Dressing was changed yesterday. Denies chest pain or sob, no n/v/d/c. Eating well. Objective Vitals Vital Signs Date Time Temp Pulse Resp B/P (MAP) Pulse Ox O2 Delivery O2 Flow Rate FiO2 04/23/17 05:40 98.2 57 16 117/68 (84) 99 04/22/17 17:43 98.5 65 18 121/73 (89) 97 I/O 04/22/17 04/22/17 04/22/17 04/23/17 04/23/17 04/23/17 07:00 15:00 23:00 07:00 15:00 23:00 Intake Total 0 ml 250 ml 1560 ml 240 ml Output Total 370 ml Balance 0 ml -120 ml 1560 ml 240 ml Intake Oral 0 ml 1560 ml 240 ml IV Total 250 ml Output Urine Total 370 ml # Voids 2 4 2 3 Result Diagram: 04/21/17 0744 Objective Remarks GENERAL: Awake, alert talkative and cooperative, appears in nad. SKIN: Warm and dry. Right hand is dressed CARDIOVASCULAR: Regular rate and rhythm. S1 and S2 no S3 or S4 no heave or thrill or rub or gallop RESPIRATORY: No accessory muscle use. Clear to auscultation. Breath sounds equal bilaterally. GASTROINTESTINAL: Abdomen soft, non-tender, nondistended. Hepatic and splenic margins not palpable. MUSCULOSKELETAL: Extremities without clubbing, cyanosis, or edema. No obvious deformities. Right hand dressed NEUROLOGICAL: Awake and alert. No obvious cranial nerve deficits. Motor grossly within normal limits. Five out of 5 muscle strength in the arms and legs. Normal speech. PSYCHIATRIC: Depressed mood and affect; poor insight and judgment A/P Assessment and Plan Right index finger abscess growing strep and MRSA on vancomycin IV currently History of CVA Chronic tobacco abuse Continue contact isolation. Continue vancomycin per creatinine clearance and levels. Infectious disease consult for duration of antibiotics and discharge planning. Hand surgery consulted-for follow up care- reviewed prior notes. Hand surgeon ff. Dressing change q2 days. Resume rest of his current meds. DVT prophylaxis with Lovenox. Discussed with the patient, nurse Colette Mayfield MD Apr 23, 2017 07:51
[2017-04-23] MEDS: QUEtiapine FUMARATE 100 MG TAB PO SCH ×2 (08:44→20:19)
[2017-04-23] MEDS ORDERED: PHARMACY ORDERED LAB ONE (08:45)
[2017-04-23] MEDS: VANCOMYCIN INJ 1,250 MG in SODIUM CHLOR 0.9% 250 ML INJ 250 ML IV SCH ×2 (08:45→20:19)
[2017-04-23] MEDS: NICOTINE 21 MG/24 HR PATCH T-DERMAL SCH (08:45)
[2017-04-23] MEDS: ENOXAPARIN SODIUM 40 MG/0.4 ML SYRINGE SQ SCH (11:15)
[2017-04-23 18:00] VITALS: BP 106/67; PULSE 73; RESP 16; TEMP 97.2; O2SAT 98
--- NOTE | 2017-04-23 18:05 | HHI.PYPN ---
Subjective Remarks Patient was seen and case discussed with nursing. Pt is pleasant and cooperative with exam. Difficult to understand with slurred speech. Insight is poor and remains perseverative on discharge. Thought process is disorganized. Denies psychotic symptoms. Mental Status Examination Appearance: Appropriate Consciousness: Alert Orientation: Person, Place, Date/Time Speech: Speech impediment Language: Adequate Fund of Knowledge: Inadequate Attention and Concentration: Adequate Memory: Unremarkable Mood: Appropriate Affect: Other Thought Process & Associations: Disorganized (at times), Tangential Thought Content: Hallucinations Hallucination Type: Auditory Delusion Type: None Suicidal Ideation: No Suicidal Plan: No Suicidal Intention: No Homicidal Ideation: No Homicidal Plan: No Homicidal Intention: No Insight: Fair Judgment: Impulsive Results Labs Test 04/23/17 07:37 04/23/17 08:45 Creatinine 0.88 MG/DL Estimat Glomerular Filtration Rate 108 ML/MIN Vancomycin Level Trough 13.4 MCG/ML Vitals/IOs Vital Signs Date Time Temp Pulse Resp B/P (MAP) Pulse Ox O2 Delivery O2 Flow Rate FiO2 04/23/17 05:40 98.2 57 16 117/68 (84) 99 Intake and Output 04/23/17 04/23/17 04/24/17 08:00 16:00 00:00 Intake Total 600 ml 1102.5 ml 1080 ml Balance 600 ml 1102.5 ml 1080 ml Assessment & Plan Problem List: (1) Schizophrenia ICD Codes: F20.9 - Schizophrenia, unspecified Assessment & Plan Continue current treatment plan Justification for Cont. Inpt. Patient would decompensate in a less restrictive setting Dylan Sosa DO Apr 23, 2017 18:05
[2017-04-23] MEDS: REMOVE OLD NICODERM (NICOTINE) PATCH T-DERMAL SCH (21:00)
[2017-04-24 06:04] VITALS: BP 108/68; PULSE 57; RESP 18; TEMP 97.6; O2SAT 95
--- NOTE | 2017-04-24 07:38 | HHI.PR ---
Subjective Remarks Says the room is cold and he is asking for an extra blanket. No fevers. No pain in his hand. He feels well has a good appetite. No nausea or vomiting no diarrhea or constipation. Objective Vitals Vital Signs Date Time Temp Pulse Resp B/P (MAP) Pulse Ox O2 Delivery O2 Flow Rate FiO2 04/24/17 06:04 97.6 57 18 108/68 (81) 95 04/23/17 18:00 97.2 73 16 106/67 (80) 98 I/O 04/23/17 04/23/17 04/23/17 04/24/17 04/24/17 04/24/17 07:00 15:00 23:00 07:00 15:00 23:00 Intake Total 240 ml 1462.5 ml 1080 ml 720 ml Balance 240 ml 1462.5 ml 1080 ml 720 ml Intake Oral 240 ml 1200 ml 1080 ml 720 ml IV Total 262.5 ml # Voids 3 6 3 # Bowel Movements 1 Result Diagram: 04/23/17 0737 Objective Remarks GENERAL: Awake, alert talkative and cooperative, appears in nad. SKIN: Warm and dry. Right hand is dressed CARDIOVASCULAR: Regular rate and rhythm. S1 and S2 no S3 or S4 no heave or thrill or rub or gallop RESPIRATORY: No accessory muscle use. Clear to auscultation. Breath sounds equal bilaterally. GASTROINTESTINAL: Abdomen soft, non-tender, nondistended. Hepatic and splenic margins not palpable. MUSCULOSKELETAL: Extremities without clubbing, cyanosis, or edema. No obvious deformities. Right hand dressed NEUROLOGICAL: Awake and alert. No obvious cranial nerve deficits. Motor grossly within normal limits. Five out of 5 muscle strength in the arms and legs. Normal speech. PSYCHIATRIC: Depressed mood and affect; poor insight and judgment A/P Assessment and Plan Right index finger abscess growing strep and MRSA on vancomycin IV currently History of CVA Chronic tobacco abuse Continue contact isolation. Continue vancomycin per creatinine clearance and levels. Infectious disease consult for duration of antibiotics and discharge planning. Hand surgery consulted-for follow up care- reviewed prior notes. Hand surgeon ff. Dressing change q2 days. Resume rest of his current meds. DVT prophylaxis with Lovenox. Discussed with the patient, nurse Colette Mayfield MD Apr 24, 2017 07:38
[2017-04-24] MEDS: NICOTINE 21 MG/24 HR PATCH T-DERMAL SCH (08:07)
[2017-04-24] MEDS: QUEtiapine FUMARATE 100 MG TAB PO SCH ×2 (08:07→20:38)
[2017-04-24] MEDS: VANCOMYCIN INJ 1,250 MG in SODIUM CHLOR 0.9% 250 ML INJ 250 ML IV SCH ×2 (08:07→20:38)
[2017-04-24] MEDS: ENOXAPARIN SODIUM 40 MG/0.4 ML SYRINGE SQ SCH (11:15)
--- NOTE | 2017-04-24 14:38 | HHI.PYPN ---
Subjective Remarks Pt was seen and case discussed with nursing. Pt is less perseverative today on discharge today, no longer pressured speech with flight of ideas. Compliant with medication, no outbursts, though insight remains poor. Mental Status Examination Appearance: Appropriate Consciousness: Alert Orientation: Person, Place, Date/Time Speech: Speech impediment (slurred) Language: Adequate Fund of Knowledge: Inadequate Attention and Concentration: Adequate Memory: Unremarkable Mood: Appropriate Affect: Other Thought Process & Associations: Disorganized (at times), Tangential Thought Content: Hallucinations Hallucination Type: Auditory (denies) Delusion Type: None Suicidal Ideation: No Suicidal Plan: No Suicidal Intention: No Homicidal Ideation: No Homicidal Plan: No Homicidal Intention: No Insight: Fair Judgment: Impulsive Results Vitals/IOs Vital Signs Date Time Temp Pulse Resp B/P (MAP) Pulse Ox O2 Delivery O2 Flow Rate FiO2 04/24/17 06:04 97.6 57 18 108/68 (81) 95 Intake and Output 04/24/17 04/24/17 04/25/17 08:00 16:00 00:00 Intake Total 480 ml 405 ml Balance 480 ml 405 ml Assessment & Plan Problem List: (1) Schizophrenia ICD Codes: F20.9 - Schizophrenia, unspecified Assessment & Plan Continue current treatment plan. Justification for Cont. Inpt. Patient would decompensate in a less restrictive setting. Dylan Sosa DO Apr 24, 2017 14:38
[2017-04-24 18:00] VITALS: BP 105/55; PULSE 65; RESP 17; TEMP 97.1; O2SAT 95
[2017-04-24] MEDS: REMOVE OLD NICODERM (NICOTINE) PATCH T-DERMAL SCH (21:00)
[2017-04-25 06:28] VITALS: BP 135/78; PULSE 60; RESP 17; TEMP 96.3; O2SAT 96
[2017-04-25] MEDS ORDERED: PHARMACY ORDERED LAB ONE (08:45)
[2017-04-25] MEDS: NICOTINE 21 MG/24 HR PATCH T-DERMAL SCH (08:55)
[2017-04-25] MEDS: QUEtiapine FUMARATE 100 MG TAB PO SCH ×2 (08:55→21:04)
[2017-04-25] MEDS: VANCOMYCIN INJ 1,250 MG in SODIUM CHLOR 0.9% 250 ML INJ 250 ML IV SCH (09:00)
--- NOTE | 2017-04-25 12:45 | HHI.PYPN ---
Subjective Remarks Patient seen for follow-up, chart review. Discussion she staff reported the patient has been compliant with medications and continues to endorse auditory hallucinations. Patient was found lying in hospital bed with the covers over his head but was able to engage appropriately interview today. Patient states that he has been feeling "alright", and continues to endorse auditory hallucinations but states that the had a lessening in intensity. Patient mentions that he has been having auditory hallucinations since he was a child. At this time he denies hallucinations being command nature or derogatory in nature. Patient states that he would liked to get better since we can be discharged home. Patient to apply was reviewed with patient today which includes continuation of IV antibiotics for his current infection which she understands as well as titration of his Seroquel to continue to assist with the auditory hallucinations. Patient reports he drinking well, reports sleeping well, denies any adverse drug reaction from medications at this time. Review of Systems Except as stated in HPI: all other systems reviewed are Neg Mental Status Examination Appearance: Appropriate Consciousness: Alert Orientation: Person, Place, Date/Time Speech: Speech impediment (slurred) Language: Adequate Fund of Knowledge: Inadequate Attention and Concentration: Adequate Memory: Unremarkable Mood: Appropriate Affect: Other ("alright") Thought Process & Associations: Tangential Thought Content: Hallucinations Hallucination Type: Auditory Delusion Type: None Suicidal Ideation: No Suicidal Plan: No Suicidal Intention: No Homicidal Ideation: No Homicidal Plan: No Homicidal Intention: No Insight: Fair Judgment: Impulsive Results Labs Labs reviewed Test 04/25/17 08:40 Vancomycin Level Trough 19.5 MCG/ML Vitals/IOs Vital Signs Date Time Temp Pulse Resp B/P (MAP) Pulse Ox O2 Delivery O2 Flow Rate FiO2 04/25/17 06:28 96.3 60 17 135/78 (97) 96 Assessment & Plan Problem List: (1) Schizophrenia ICD Codes: F20.9 - Schizophrenia, unspecified Assessment & Plan Patient at this time continues with auditory hallucinations but appears to be improving with medications. We'll increase quetiapine to 150 mg by mouth twice a day with target dose of 400 mg by mouth daily for maintenance. Patient to continue IV antibiotics as per primary medical team. Continue recommendations as per primary medical team. Continue to endorse maintenance of personal hygiene, patient remains on contact precautions. Discharge planning in progress Justification for Cont. Inpt. At risk for further decompensation if at lower level of care Discharge Planning Patient may return back to his [facility] once medically and psychiatrically stable Jose Roberto Randolph MD Apr 25, 2017 12:45
[2017-04-25] MEDS: ENOXAPARIN SODIUM 40 MG/0.4 ML SYRINGE SQ SCH (12:47)
[2017-04-25] MEDS ORDERED: PILL SPLITTER OTHER PRN (13:00)
--- NOTE | 2017-04-25 15:17 | PD.TTN ---
Patient Problems 1. Discharge planning 2. Medication compliance 3. Knowledge deficit 4. Lack of coping skills Progress Toward Goals Provider Input: 04/25/2017; patient's medication will be looked at to determine if adjustments are needed based on patient's mood/behavior Nurse(s) Present: YESSI Baez Nurse(s) Input: 04/25/17; patient continues to state he is having voices; with the appears of paranoid and isolated behavior Psychiatric Counselors Present: MARK Ochoa Psych Therapist Input: 04/25/2017; patient is able to return to [facility] when stable; counselor will discuss with patient medication compliance and ways to address auditory and visual hallucination. Group Spec/RT/OT/ALVAREZ Present: Roby Dhaliwal OT Group Spec/RT/OT/ALVAREZ Input: 04/25/17; patient has been unable to attend groups or activities Documentation Scribe: MARK Ochoa Sandra LMHC Apr 25, 2017 15:17
--- NOTE | 2017-04-25 17:18 | HHI.PR ---
Objective Vitals Vital Signs Date Time Temp Pulse Resp B/P (MAP) Pulse Ox O2 Delivery O2 Flow Rate FiO2 04/25/17 06:28 96.3 60 17 135/78 (97) 96 04/24/17 18:00 97.1 65 17 105/55 (72) 95 I/O 04/24/17 04/24/17 04/24/17 04/25/17 04/25/17 04/25/17 07:00 15:00 23:00 07:00 15:00 23:00 Intake Total 1200 ml 645 ml 1342.5 ml 250 ml Output Total 3 ml Balance 1200 ml 645 ml 1339.5 ml 250 ml Intake Oral 1200 ml 360 ml 1080 ml IV Total 285 ml 262.5 ml 250 ml Output Urine Total 3 ml # Voids 3 4 # Bowel Movements 1 Result Diagram: 04/23/17 0737 Jimmy Rainey MD Apr 25, 2017 17:18
[2017-04-25 18:06] VITALS: BP 134/80; PULSE 62; RESP 16; TEMP 97.2; O2SAT 96
[2017-04-25] MEDS ORDERED: oxyCODONE/ACETAMINOPHEN 5 MG/325 MG TAB PO PRN ×2 (20:15)
[2017-04-25] MEDS ORDERED: CYCLOBENZAPRINE HCL 10 MG TAB PO ONE (20:15)
--- NOTE | 2017-04-25 20:18 | HHI.PR ---
Subjective Remarks Patient c/o back pain in the right lower side of his back. Denies cp/sob. Denies dysuria, hematuria. Worst with movement, he is unable to sit well. Nurse states he has not complained of back pain to her. denies urine or bowel incontinence Objective Vitals Vital Signs Date Time Temp Pulse Resp B/P (MAP) Pulse Ox O2 Delivery O2 Flow Rate FiO2 04/25/17 18:06 97.2 62 16 134/80 (98) 96 04/25/17 06:28 96.3 60 17 135/78 (97) 96 I/O 04/24/17 04/24/17 04/24/17 04/25/17 04/25/17 04/25/17 07:00 15:00 23:00 07:00 15:00 23:00 Intake Total 1200 ml 645 ml 1342.5 ml 610 ml Output Total 3 ml Balance 1200 ml 645 ml 1339.5 ml 610 ml Intake Oral 1200 ml 360 ml 1080 ml 360 ml IV Total 285 ml 262.5 ml 250 ml Output Urine Total 3 ml # Voids 3 4 # Bowel Movements 1 Result Diagram: 04/25/170 Objective Remarks GENERAL: Awake, alert talkative and cooperative, appears in nad. SKIN: Warm and dry. Right hand is dressed CARDIOVASCULAR: Regular rate and rhythm. S1 and S2 no S3 or S4 no heave or thrill or rub or gallop RESPIRATORY: No accessory muscle use. Clear to auscultation. Breath sounds equal bilaterally. GASTROINTESTINAL: Abdomen soft, non-tender, nondistended. Hepatic and splenic margins not palpable. MUSCULOSKELETAL: Extremities without clubbing, cyanosis, or edema. No obvious deformities. Right hand dressed. There is some tenderness to palpation of right paraspinal muscles. NEUROLOGICAL: Awake and alert. No obvious cranial nerve deficits. Motor grossly within normal limits. Five out of 5 muscle strength in the arms and legs. Normal speech. PSYCHIATRIC: Depressed mood and affect; poor insight and judgment Medications and IVs Current Medications Medications (Trade) Dose Ordered Sig/Jonas Route Start Time Stop Time Status Last Admin (Ativan) 1 mg Q6H PRN PO 04/20/17 18:00 (Tylenol) 650 mg Q4H PRN PO 04/20/17 17:48 04/20/17 20:41 (Milk Of Magnesia Liq) 30 ml DAILY PRN PO 04/20/17 17:48 (Mag-Al Plus Susp Liq) 30 ml Q6H PRN PO 04/20/17 17:48 04/22/17 17:09 (Habitrol 21 Mg Patch.24 Hr) 1 patch DAILY T-DERMAL 04/20/17 18:45 Miscellaneous Information 1 HS T-DERMAL 04/20/17 21:00 (Lovenox Inj) 40 mg Q24H SQ 04/21/17 12:00 04/25/17 12:47 Pharmacy Profile Note 0 ml @ 0 mls/hr UNSCH OTHER 04/21/17 15:30 Vancomycin HCl 1250 mg/Sodium Chloride 262.5 ml @ 250 mls/hr Q12H IV 04/21/17 21:00 Future Hold 04/25/17 09:00 (SEROquel) 150 mg BID PO 04/25/17 21:00 (Pill Splitter) 1 ea UNSCH PRN OTHER 04/25/17 13:00 A/P Problem List: (1) Schizophrenia ICD Code: F20.9 - Schizophrenia, unspecified Status: Acute Plan: Management as per psychiatry. Currently on Seroquel and Ativan as needed. (2) Abscess of right index finger ICD Code: L02.511 - Cutaneous abscess of right hand Status: Acute Plan: On 04/17/2017. sp Incision and drainage and excisional debridement, abscess right index finger. by Dr Hermosillo, Wound cultures were growing strep and MRSA. He was receiving vancomycin and Zosyn IV while in hospital. Patient being followed by hand surgery - recommends Q2 days dressing changes. Range of motion exercises. ID consulted. Recommended continuation of IV Vancomycin and also stated that antibiotics could be swithced to oral abx (clinda vs keflex + doxycylin) to complete 10-14 days of tx. Will DC Vancomycin and Keflex and Doxycycline. Continue wound care. (3) Low back pain ICD Code: M54.5 - Low back pain Status: Acute Plan: Check lumbar spine x ray. Will Rx Flexeril and Percocet orally for pain control. (4) Smoking addiction ICD Code: F17.200 - Nicotine dependence, unspecified, uncomplicated Plan: Continue nicotine patch. Assessment and Plan DVt prophylaxis: Continue Lovenox SQ. Problem Qualifiers (1) Schizophrenia: Qualified Codes: F20.9 - Schizophrenia, unspecified (2) Low back pain: Qualified Codes: M54.5 - Low back pain Jimmy Rainey MD Apr 25, 2017 20:18
[2017-04-25] MEDS: REMOVE OLD NICODERM (NICOTINE) PATCH T-DERMAL SCH (21:00)
[2017-04-25] MEDS: DOXYCYCLINE HYCLATE 100 MG CAP PO SCH (21:06)
[2017-04-26] MEDS: CEPHALEXIN MONOHYDRATE 500 MG CAP PO SCH ×4 (01:04→14:23)
[2017-04-26 05:54] VITALS: BP 111/72; PULSE 57; RESP 16; TEMP 97.7; O2SAT 97
[2017-04-26] MEDS: QUEtiapine FUMARATE 100 MG TAB PO SCH (08:53)
[2017-04-26] MEDS: DOXYCYCLINE HYCLATE 100 MG CAP PO SCH (08:53)
[2017-04-26] MEDS: NICOTINE 21 MG/24 HR PATCH T-DERMAL SCH (08:54)
--- NOTE | 2017-04-26 12:41 | HHI.PYPN ---
Subjective Remarks Patient was seen today for psychiatric reevaluation. Case was discussed with Dr. Randolph and nurse in charge Cammie. Chart reviewed. On psychiatric evaluation patient is found it in his breakfast, is calm and cooperative, a little bit disorganized and incoherent, but redirectable. Patient reports that he feels much better, he denies pain, denies distress, denies depression and anxiety, he denies suicidal and homicidal ideation, he denies visual hallucinations. He reports hearing voices sometimes "telling me you are good doctors". Patient is fully oriented 3, compliant with his medications, no significant side effects reported no agitation or aggressive behavior reported. Review of Systems Constitutional: DENIES: Diaphoretic episodes, Fatigue, Fever, Weight gain, Weight loss, Chills, Dizziness, Change in appetite, Night Sweats Endocrine: DENIES: Heat/cold intolerance, Polydipsia, Polyuria, Polyphagia Eyes: DENIES: Blurred vision, Diplopia, Eye inflammation, Eye pain, Vision loss , Photosensitivity, Double Vision Ears, nose, mouth, throat: DENIES: Tinnitus, Hearing loss, Vertigo, Nasal discharge, Oral lesions, Throat pain, Hoarseness, Ear Pain, Running Nose, Epistaxis, Sinus Pain, Toothache, Odynophagia Respiratory: DENIES: Apneas, Cough, Snoring, Wheezing, Hemoptysis, Sputum production, Shortness of breath Cardiovascular: DENIES: Chest pain, Palpitations, Syncope, Dyspnea on Exertion , PND, Lower Extremity Edema, Orthopnea, Claudication Gastrointestinal: DENIES: Abdominal pain, Black stools, Bloody stools, Constipation, Diarrhea, Nausea, Vomiting, Difficulty Swallowing, Anorexia Genitourinary: DENIES: Sexual dysfunction, Urinary frequency, Urinary incontinence, Urgency, Hematuria, Dysuria, Nocturia, Penile Discharge, Testicular Pain, Testicular Swelling Musculoskeletal: DENIES: Joint pain, Muscle aches, Stiffness, Joint Swelling, Back pain, Neck pain Integumentary: DENIES: Abnormal pigmentation, Nail changes, Pruritus, Rash Hematologic/lymphatic: DENIES: Bruising, Lymphadenopathy Immunologic/allergic: DENIES: Eczema, Urticaria Neurologic: DENIES: Abnormal gait, Headache, Localized weakness, Paresthesias, Seizures, Speech Problems, Tremor, Poor Balance Psychiatric: COMPLAINS OF: Hallucinations, DENIES: Anxiety, Confusion, Mood changes, Depression, Agitation, Suicidal Ideation, Homicidal Ideation, Delusions Mental Status Examination Appearance: Appropriate Consciousness: Alert Orientation: Person, Place, Date/Time Speech: Speech impediment (slurred) Language: Adequate Fund of Knowledge: Inadequate Attention and Concentration: Adequate Memory: Unremarkable Mood: Appropriate Affect: Other ("alright") Thought Process & Associations: Tangential Thought Content: Hallucinations Hallucination Type: Auditory Delusion Type: None Suicidal Ideation: No Suicidal Plan: No Suicidal Intention: No Homicidal Ideation: No Homicidal Plan: No Homicidal Intention: No Insight: Fair Judgment: Impulsive Results Labs Test 04/25/17 17:30 Creatinine 1.19 MG/DL Estimat Glomerular Filtration Rate 76 ML/MIN Vitals/IOs Vital Signs Date Time Temp Pulse Resp B/P (MAP) Pulse Ox O2 Delivery O2 Flow Rate FiO2 04/26/17 05:54 97.7 57 16 111/72 (85) 97 Intake and Output 04/26/17 04/26/17 04/27/17 08:00 16:00 00:00 Intake Total 720 ml 240 ml Balance 720 ml 240 ml Assessment & Plan Problem List: (1) Schizophrenia ICD Codes: F20.9 - Schizophrenia, unspecified Status: Acute Assessment & Plan: Patient is calm, cooperative, a little bit incoherent, disorganized, with non commanding-type auditory hallucinations, which is part of baseline. Compliant with medications, oriented 3, no significant side effects reported. Continue current psychotropics. Assessment & Plan Estimated LOS: days Justification for Cont. Inpt. Patient has an elevated risk to decompensate at a lower level of care. Problem Qualifiers (1) Schizophrenia: Qualified Codes: F20.9 - Schizophrenia, unspecified Brian Espinosa MD Apr 26, 2017 12:41
--- NOTE | 2017-04-26 13:51 | HHI.PR ---
Subjective Remarks standing up in front of his room, was angry with staff but denies any symptoms overnight events reviewed Objective Vitals Vital Signs Date Time Temp Pulse Resp B/P (MAP) Pulse Ox O2 Delivery O2 Flow Rate FiO2 04/26/17 05:54 97.7 57 16 111/72 (85) 97 04/25/17 18:06 97.2 62 16 134/80 (98) 96 I/O 04/25/17 04/25/17 04/25/17 04/26/17 04/26/17 04/26/17 07:00 15:00 23:00 07:00 15:00 23:00 Intake Total 1330 ml 720 ml 240 ml Output Total 500 ml Balance 830 ml 720 ml 240 ml Intake Oral 1080 ml 720 ml 240 ml IV Total 250 ml Output Urine Total 500 ml # Voids 4 2 3 Result Diagram: 04/25/17 1730 Objective Remarks awake, alert, angry at staff, standing in front of his room , awaiting on discharge not able to do full physical exam as pt was refusing and wanting to make phone calls no new symptoms ready for discharge per psychiatry known to me from last week consult A/P Problem List: (1) Schizophrenia ICD Code: F20.9 - Schizophrenia, unspecified Status: Acute (2) Abscess of right index finger ICD Code: L02.511 - Cutaneous abscess of right hand Status: Acute (3) Low back pain ICD Code: M54.5 - Low back pain Status: Acute (4) Smoking addiction ICD Code: F17.200 - Nicotine dependence, unspecified, uncomplicated Assessment and Plan Impression: Right index finger abscess growing strep and MRSA History of CVA Chronic tobacco abuse Plan: Was on vancomycin and Zosyn. Has been switched to by mouth Keflex and doxycycline per infectious disease. Total of 10-14 days course. C. difficile studies negative. Patient is ready for discharge per his primary psychiatry team. Medically stable for discharge. Prescriptions written for Keflex and doxycycline. Hand surgery was also contacted by patient's nurse. To be discharged with follow-up appointment in clinic. DVT prophylaxis with ambulation. Patient will be going back to [facility] medically stable will sign off Discharge Planning discharge today per psychiatry team Problem Qualifiers (1) Schizophrenia: Qualified Codes: F20.9 - Schizophrenia, unspecified (2) Low back pain: Qualified Codes: M54.5 - Low back pain Oung,Twethida MD Apr 26, 2017 13:51
[2017-04-26] MEDS ORDERED: CEPH500C PO (14:04)
[2017-04-26] MEDS ORDERED: DOXY100C PO ×2 (14:04→15:42)
[2017-04-26] MEDS: ENOXAPARIN SODIUM 40 MG/0.4 ML SYRINGE SQ SCH (14:23)
[2017-04-26] MEDS ORDERED: QUET1TAB8 PO (14:40)
[2017-04-26] MEDS ORDERED: CEPH-460 PO (15:41)
== END 2017-04-26 17:12 | DRG 885 ==
LOC: H4EA 04-20 12:53
PROVIDERS: ADMIT Student in an Organized Health Care Education/Training Program; ATTEND Student in an Organized Health Care Education/Training Program
DX: F20.9 Schizophrenia, unspecified (principal); L02.511 Cutaneous abscess of right hand; B95.62 Methicillin resistant Staphylococcus aureus infection as the cause of diseases classified elsewhere; B95.5 Unspecified streptococcus as the cause of diseases classified elsewhere; R47.9 Unspecified speech disturbances; F17.210 Nicotine dependence, cigarettes, uncomplicated; M54.5 Low back pain; Z86.73 Personal history of transient ischemic attack (TIA), and cerebral infarction without residual deficits
CPT/HCPCS: 80048; 80061; 80202; 82565; 83036; 87493; J1650; J2543; J3370; J7050

== ENCOUNTER 2017-10-24 15:28 | Inpatient (IN) | payer MEDICARE, OTHER ==
[~2017-10-24] VITALS: Ht 185.4 cm; Wt 81.1 kg
[~2017-10-24 15:28] MED LIST: CEPH-460 PO; CEPH500C PO; DOXY100C PO; QUET1TAB8 PO; SERO25TA PO; VANC1PLA4 IV; ZOSY3.375P IV
[2017-10-24 16:14] VITALS: BP 107/70; PULSE 49; RESP 16; TEMP 97.5; O2SAT 100
[2017-10-24] MEDS ORDERED: SODIUM CHLORIDE 0.9% FLUSH 10 ML FLUSH IV FLUSH PRN (16:30)
--- NOTE | 2017-10-24 16:58 | RADRPT ---
EXAM DATE: 10/24/2017 4:55 PM EDT AGE/SEX: 57 years / Male INDICATIONS: Altered mental status. CLINICAL DATA: This is the patient's initial encounter. Patient reports that signs and symptoms have been present for 1 day and indicates a pain score of 0/10. MEDICAL/SURGICAL HISTORY: Stroke. None. RADIATION DOSE: 56.35 CTDI (mGy) COMPARISON: No prior exams available for comparison. TECHNIQUE: CT of the head without contrast. Using automated exposure control and adjustment of the mA and/or kV according to patient size, radiation dose was kept as low as reasonably achievable to ob tain optimal diagnostic quality images. FINDINGS: The ventricles are normal size. There is no parenchymal hemorrhage, acute infarction or mass lesion. There are no extra-axial fluid collections appreciated. Posterior fossa is unremarkable. Sinuses visu alized. Review of bone windows reveals no evidence for fracture CONCLUSION: 1. Negative noncontrast axial head CT Electronically signed by: Aebl Tamez MD 10/24/2017 4:57 PM EDT
[2017-10-24 17:09] LABS: AUTOMATED NEUTROPHIL # 3.3 TH/MM3 (1.8-7.7); BASOPHIL # 0.1 TH/MM3 (0-0.2); BASOPHIL % 1.3 % (0.0-2.0); EOSINOPHIL # 0.3 TH/MM3 (0-0.4); EOSINOPHIL % 5.8 % (0.0-4.0); HEMATOCRIT 39.6 % (39.0-51.0); HEMOGLOBIN 12.9 GM/DL (13.0-17.0); LYMPH % 29.5 % (9.0-44.0); LYMPHOCYTE # 1.7 TH/MM3 (1.0-4.8); MEAN CELL VOLUME 90.2 FL (80.0-100.0); MEAN CORPUSCULAR HEMOGLOBIN 29.4 PG (27.0-34.0); MEAN CORPUSCULAR HGB CONC 32.6 % (32.0-36.0); MEAN PLATELET VOLUME 8.7 FL (7.0-11.0); MONO % 6.6 % (0.0-8.0); MONOCYTE # 0.4 TH/MM3 (0-0.9); NEUT % 56.8 % (16.0-70.0); PLATELET COUNT 181 TH/MM3 (150-450); RED BLOOD COUNT 4.39 MIL/MM3 (4.50-5.90); RED CELL DISTRIBUTION WIDTH 14.6 % (11.6-17.2); WHITE BLOOD COUNT 5.7 TH/MM3 (4.0-11.0)
[2017-10-24] MEDS ORDERED: SODIUM CHLOR 0.9% 1000 ML INJ 1,000 ML IV ONE (17:15)
[2017-10-24 17:22] LABS: ALBUMIN 3.3 GM/DL (3.4-5.0); ALT (GPT) 18 U/L (12-78); AST (GOT) 17 U/L (15-37); BICARBONATE 28.4 MEQ/L (21.0-32.0); BLOOD UREA NITROGEN 14 MG/DL (7-18); CALCIUM 8.2 MG/DL (8.5-10.1); CHLORIDE 107 MEQ/L (98-107); CREATININE 1.19 MG/DL (0.60-1.30); GLOMERULAR FILTRATION RATE 76 ML/MIN (>89); GLUCOSE,RANDOM 89 MG/DL (74-106); SODIUM (NA) 142 MEQ/L (136-145)
[2017-10-24 17:25] LABS: PROTHROMBIN TIME - PATIENT 10.5 SEC (9.8-11.6)
--- NOTE | 2017-10-24 17:31 | PD ---
HPI Chief Complaint: Psychiatric Symptoms Time Seen by Provider: 16:18 Travel History International Travel<30 days: No Contact w/Intl Traveler<30days: No Traveled to known affect area: No History of Present Illness HPI Patient is a 57-year-old male presented to emerge department under Hanna act for psychiatric evaluation. Per the Hanna act report patient has been decompensating since Tuesday with significant change in mental status including disorientation, walking into the streets and grossly diminished in speed. He has refused medical treatment and presents with symptoms resembling a CVA. He is a risk to himself and requires evaluation. On arrival patient is drowsy but arousable, H&P is limited due to patient's mental status. PFSH Past Medical History Bipolar Disorder: Yes Anxiety: Yes Depression: Yes Cerebrovascular Accident: Yes Hypertension: Yes Neurologic: Yes Psychiatric: Yes (SCHIZOPHRENIA) Schizophrenia: Yes ?: Not Past Surgical History Abdominal Surgery: Yes (APPENDIX) Social History Alcohol Use: No Tobacco Use: Yes Substance Use: No Allergies-Medications (Allergen,Severity, Reaction): Coded Allergies: No Known Allergies (Verified Allergy, Unknown, 04/16/17) Reported Meds & Prescriptions Reported Meds & Active Scripts Active Doxycycline Hyclate 100 Mg Cap 100 Mg PO BID 10 Days Keflex (Cephalexin) 500 Mg Capsule 500 Mg PO Q6H 10 Days Quetiapine (Quetiapine Fumarate) 100 Mg Tab 150 Mg PO BID Doxycycline Hyclate 100 Mg Cap 100 Mg PO BID 10 Days Cephalexin 500 Mg Cap 500 Mg PO Q6HR 10 Days Seroquel (Quetiapine Fumarate) 25 Mg Tab 25 Mg PO BID 10 Days Vancomycin 1 G/100Ml-0.9% NaCl (Vancomycin/0.9 % Sod Chloride) 1 Gram/100 Ml Plast..bag 1 Gm IV BID 3 Days Zosyn Inj (Piperacillin Sod/Tazobactam Sod) 3.375 Gram Inj 3.375 Gm IV Q6HR 3 Days Review of Systems ROS Limitations: Altered Mental Status Except as stated in HPI: all other systems reviewed are Neg Physical Exam Narrative GENERAL: Thin, well-developed, drowsy but arousable -[place] male. Presenting in no acute distress. SKIN: Warm and dry. HEAD: Atraumatic. Normocephalic. EYES: Pupils equal and round. No scleral icterus. No injection or drainage. Extraocular movements are intact. ENT: No nasal bleeding or discharge. Mucous membranes pink and moist. NECK: Trachea midline. No JVD. CARDIOVASCULAR: Regular rate and rhythm. RESPIRATORY: No accessory muscle use. Clear to auscultation. Breath sounds equal bilaterally. GASTROINTESTINAL: Abdomen soft, non-tender, nondistended. Hepatic and splenic margins not palpable. MUSCULOSKELETAL: Extremities without clubbing, cyanosis, or edema. No obvious deformities. NEUROLOGICAL: Drowsy but arousable, oriented to self and place. Motor grossly within normal limits. Five out of 5 muscle strength in the arms and legs. Slurred speech. PSYCHIATRIC: Appropriate mood and affect; insight and judgment impaired. Data Data Last Documented VS Vital Signs Date Time Temp Pulse Resp B/P (MAP) Pulse Ox O2 Delivery O2 Flow Rate FiO2 10/24/17 19:09 45 14 125/78 (94) 100 Room Air 10/24/17 16:14 97.5 Orders Orders Electrocardiogram (10/24/17 16:25) Ammonia (10/24/17 16:25) Complete Blood Count With Diff (10/24/17 16:) Comprehensive Metabolic Panel (10/24/17 16:25) Creatine Kinase (Cpk) (10/24/17 16:25) Prothrombin Time / Inr (Pt) (10/24/17 16:25) Act Partial Throm Time (Ptt) (10/24/17 16:25) Troponin I (10/24/17 16:25) Thyroid Stimulating Hormone (10/24/17 16:25) Urinalysis - C+S If Indicated (10/24/17 16:25) Lactic Acid Sepsis Protocol (10/24/17 16:25) Chest, Single Ap (10/24/17 16:25) Ct Brain W/O Iv Contrast(Rout) (10/24/17 16:25) Blood Glucose (10/24/17 16:25) Ecg Monitoring (10/24/17 16:25) Iv Access Insert/Monitor (10/24/17 16:25) Cath For Specimen (10/24/17 16:25) Oximetry (10/24/17 16:25) Sodium Chloride 0.9% Flush (Ns Flush) (10/24/17 16:30) Drug Screen, Random Urine (10/24/17 16:25) [place] (Li) (10/24/17 16:25) Psych Screen (10/24/17 16:25) Sodium Chlor 0.9% 1000 Ml Inj (Ns 1000 M (10/24/17 17:15) CKMB (10/24/17 16:35) CKMB% (10/24/17 16:35) Lactulose Liq (Lactulose Liq) (10/24/17 18:00) Labs Laboratory Tests Test 10/24/17 16:35 10/24/17 16:45 10/24/17 18:56 White Blood Count 5.7 TH/MM3 Red Blood Count 4.39 MIL/MM3 Hemoglobin 12.9 GM/DL Hematocrit 39.6 % Mean Corpuscular Volume 90.2 FL Mean Corpuscular Hemoglobin 29.4 PG Mean Corpuscular Hemoglobin Concent 32.6 % Red Cell Distribution Width 14.6 % Platelet Count 181 TH/MM3 Mean Platelet Volume 8.7 FL Neutrophils (%) (Auto) 56.8 % Lymphocytes (%) (Auto) 29.5 % Monocytes (%) (Auto) 6.6 % Eosinophils (%) (Auto) 5.8 % Basophils (%) (Auto) 1.3 % Neutrophils # (Auto) 3.3 TH/MM3 Lymphocytes # (Auto) 1.7 TH/MM3 Monocytes # (Auto) 0.4 TH/MM3 Eosinophils # (Auto) 0.3 TH/MM3 Basophils # (Auto) 0.1 TH/MM3 CBC Comment DIFF FINAL Differential Comment Prothrombin Time 10.5 SEC Prothromb Time International Ratio 1.0 RATIO Activated Partial Thromboplast Time 30.8 SEC Blood Urea Nitrogen 14 MG/DL Creatinine 1.19 MG/DL Random Glucose 89 MG/DL Total Protein 6.7 GM/DL Albumin 3.3 GM/DL Calcium Level 8.2 MG/DL Alkaline Phosphatase 89 U/L Aspartate Amino Transf (AST/SGOT) 17 U/L Alanine Aminotransferase (ALT/SGPT) 18 U/L Total Bilirubin 0.3 MG/DL Sodium Level 142 MEQ/L Potassium Level 4.0 MEQ/L Chloride Level 107 MEQ/L Carbon Dioxide Level 28.4 MEQ/L Anion Gap 7 MEQ/L Estimat Glomerular Filtration Rate 76 ML/MIN Total Creatine Kinase 346 U/L Creatine Kinase MB 3.2 NG/ML Creatine Kinase MB % 0.9 % Troponin I LESS THAN 0.02 NG/ML Thyroid Stimulating Hormone 3rd Gen 0.837 uIU/ML Lactic Acid Level 1.0 mmol/L Ammonia 52 MCMOL/L [place] Level 0.4 MEQ/L Urine Color YELLOW Urine Turbidity CLEAR Urine pH 7.0 Urine Specific [place] 1.010 Urine Protein NEG mg/dL Urine Glucose (UA) NEG mg/dL Urine Ketones NEG mg/dL Urine Occult Blood NEG Urine Nitrite NEG Urine Bilirubin NEG Urine Urobilinogen LESS THAN 2 mg/dL Urine Leukocyte Esterase NEG Urine Mucus FEW /lpf Microscopic Urinalysis Comment CATH-CULT NOT IND Urine Opiates Screen NEG Urine Barbiturates Screen NEG Urine Amphetamines Screen NEG Urine Benzodiazepines Screen NEG Urine Cocaine Screen NEG Urine Cannabinoids Screen NEG MDM Medical Decision Making Medical Screen Exam Complete: Yes Emergency Medical Condition: Yes Medical Record Reviewed: Yes Interpretation(s) Vital Signs Date Time Temp Pulse Resp B/P (MAP) Pulse Ox O2 Delivery O2 Flow Rate FiO2 10/24/17 16:14 97.5 49 16 107/70 (82) 100 Room Air Differential Diagnosis CVA versus TIA versus metabolic abnormality versus lithium toxicity versus UTI versus psychosis versus other Narrative Course Patient is a 57-year-old male presenting to emerge department under Hanna act, Hanna act was initiated because patient refused medical treatment and continue to decompensate. On arrival patient is bradycardic with heart rate in the 40s. Patient is drowsy but arousable, he follows commands and answers questions. Labs and imaging ordered and pending. Initial EKG shows sinus bradycardia with a rate of 44. CBC with no acute findings Chemistry with no acute findings, ammonia 52, lactic acid 1, lithium level 0.4, urinalysis unremarkable. Chest x-ray shows suspected minimal left base atelectasis or consolidation. Does not appear consistent with pneumonia, patient has no leukocytosis, he is afebrile. CT of the brain is negative. Discussed findings with my attending physician. Patient will be medically cleared. Patient is bradycardic, historically his heart rate is been low in the 50s. Diagnosis Primary Impression: Medical clearance for psychiatric admission Additional Impression: Bradycardia Condition: Stable Kala Goff Oct 24, 2017 17:30
[2017-10-24 17:32] LABS: ALKALINE PHOSPHATASE 89 U/L (45-117); TOTAL BILIRUBIN ADULT 0.3 MG/DL (0.2-1.0); TOTAL PROTEIN 6.7 GM/DL (6.4-8.2); TROPONIN I LESS THAN 0.02 NG/ML (0.02-0.05)
[2017-10-24] MEDS ORDERED: LACTULOSE SYRUP 20 GM/30 ML CUP PO ONE (18:00)
--- NOTE | 2017-10-24 18:03 | RADRPT ---
EXAM DATE: 10/24/2017 5:52 PM EDT AGE/SEX: 57 years / Male INDICATIONS: Short of breath after syncopal episode. CLINICAL DATA: This is the patient's initial encounter. Patient reports that signs and symptoms have been present for 1 day and indicates a pain score of Nonresponsive. MEDICAL/SURGICAL HISTORY: Stroke. None. COMPARISON: No prior exams available for comparison. FINDINGS: The heart size is normal. There is mild increased density at the left base. The left hemidiaphragm is ill-defined. The right lung is clear. A significant effusion is not appreciated. CONCLUSION: Suspected minimal left base atelectasis or consolidation. Electronically signed by: Reji Sultana MD 10/24/2017 6:01 PM EDT
[2017-10-24 19:09] VITALS: BP 125/78; PULSE 45; RESP 14; O2SAT 100
[2017-10-24 19:30] LABS: BILIRUBIN, URINE NEG (NEG); BLOOD, URINE NEG (NEG); GLUCOSE,URINE NEG (NEG); KETONE, URINE NEG (NEG); MUCUS URINE FEW /lpf (OCC); NITRITE,URINE NEG (NEG); URINE COLOR YELLOW (YELLW/STRAW); URINE LEUKOCYTE ESTERASE NEG (NEG)
[2017-10-25 00:58] VITALS: BP 119/68; PULSE 59; RESP 16; O2SAT 99
[2017-10-25] MEDS ORDERED: BENZ0.5T PO (01:49)
[2017-10-25] MEDS ORDERED: AMLO5TAB2 PO (01:49)
[2017-10-25] MEDS ORDERED: ABIL15TA3 PO (01:49)
[2017-10-25] MEDS ORDERED: PALI234P IM (01:51)
[2017-10-25] MEDS ORDERED: KLON2TAB PO (01:51)
[2017-10-25] MEDS ORDERED: HYDR12.57 PO (01:51)
[2017-10-25] MEDS ORDERED: ZOLO50TA PO (01:51)
[2017-10-25] MEDS ORDERED: LITH300C2 PO (01:51)
[2017-10-25] MEDS ORDERED: VESI10TA2 PO (01:51)
[2017-10-25 07:00] VITALS: BP 123/79; PULSE 43; RESP 18; O2SAT 98
--- NOTE | 2017-10-25 08:50 | PD ---
History of Present Illness Chief Complaint: Psychiatric Symptoms Time Seen by Provider: 08:30 Travel History International Travel<30 Days: No Contact w/Intl Traveler<30days: No Known affected area: No Legal Status Legal Status: Hanna Act Hanna Act Signed By: DR SIERRA, PHD History of Present Illness: History of Present Illness HPI Patient is a 57-year-old, male, with psychiatric history of schizophrenia presented to emerge department under Hanna act for psychiatric evaluation. Per the Hanna act report, filed by psychologist at the [facility] where the patient resides, "patient has been decompensating since Tuesday with significant change in mental status including disorientation, walking into the streets and grossly diminished in speed. He has refused medical treatment and presents with symptoms resembling a CVA. He is a risk to himself and requires evaluation." On arrival to the ED patient was drowsy but arousable, H&P is limited due to patient's mental status. Patient is seen this morning. he is asleep but awakens with verbal prompting . He remains sleepy. His speech s very difficult to understand as he mumbles but makes an effort at answering questions. he does report that he is hearing voices at this time. He does not appear to be responding to halluciantions. Not suicidal. He did write on a piece of paper that he wanted to go to the crisis center. Telephone call to psychologist who placed patient under BA , Eloy Khan at [phone]. Message left as he is unavailable. Telephone call to [facility] to obtain further clinical information . I spoke with Aminta who states that the patient has had gradual decline in his functioning for the past 4 weeks including gait impairment, slurring of his words. he has refused to comply with getting a CT scan. EMR reviewed. The patient was last psychiatrically hospitalized here at [facility] on Apr [address]. CT of brain was negative. Chest X Ray with some left base consolidation. Li level 0.4 meq. Ammonia level 52. Patient was given lactulose. CK 346. PFSH Past Medical History Bipolar Disorder: Yes Anxiety: Yes Depression: Yes Cancer: No Cerebrovascular Accident: Yes Diminished Hearing: No Hypertension: Yes Neurologic: Yes Psychiatric: Yes (SCHIZOPHRENIA) Schizophrenia: Yes Tetanus Vaccination: < 5 Years Influenza Vaccination: No ?: Not Past Surgical History Abdominal Surgery: Yes (APPENDIX) Other Surgery: Yes Psychiatric History Psychiatric History Hx Psychiatric Treatment: HX OF SCHIZOPHRENIA. LAST TIME HOSPITALIZED IN APR 2017. CAREGIVER UNAWARE OF ANY OTHER ADMISSIONS. History of Inpatient Treatment: Yes Guns or firearms in home: No Social History Lives in [facility]. On disability Hx Alcohol Use: No Hx Tobacco Use: Yes Hx Substance Use: No Hx of Substance Use Treatment: No Family Psychiatric History unknown Allergies-Medications (Allergen,Severity, Reaction): Coded Allergies: No Known Allergies (Verified Allergy, Unknown, 04/16/17) Reported Meds & Prescriptions Reported Meds & Active Scripts Active Reported Vesicare (Solifenacin) 10 Mg Tab 10 Mg PO HS Zoloft (Sertraline HCl) 50 Mg Tab 50 Mg PO DAILY [place] Carbonate 300 Mg Cap 300 Mg PO HS Invega Sustenna Inj (Paliperidone Palmitate) 234 Mg/1.5 Ml Inj 234 Mg IM Q28D Hydrochlorothiazide 12.5 Mg Cap 12.5 Mg PO DAILY Klonopin (Clonazepam) 2 Mg Tab 2 Mg PO HS Benztropine (Benztropine Mesylate) 0.5 Mg Tab 4 Mg PO HS Abilify (Aripiprazole) 15 Mg Tab 15 Mg PO HS Amlodipine (Amlodipine Besylate) 5 Mg Tab 5 Mg PO DAILY Review of Systems ROS Limitations: Speech Impaired Mental Status Examination Appearance: Appropriate Consciousness: Alert Orientation: Person, Place, Situation Motor Activity: Abnormal gait Speech: Other (slurred, dificult to understand) Language: Adequate Fund of Knowledge: Inadequate Attention and Concentration: Inadequate Memory: Impaired Mood: Appropriate Affect: Appropriate Thought Process & Associations: Other (diminished) Thought Content: Hallucinations Hallucination Type: Auditory Delusion Type: None Suicidal Ideation: No Suicidal Plan: No Suicidal Intention: No Homicidal Ideation: No Homicidal Plan: No Homicidal Intention: No Insight: Fair Judgment: Poor MDM Medical Decision Making Medical Record Reviewed: Yes Assessment/Plan History of Present Illness HPI Patient is a 57-year-old, male, with psychiatric history of schizophrenia presented to emerge department under Hanna act for psychiatric evaluation. Per the Hanna act report, filed by psychologist at the [facility] where the patient resides, "patient has been decompensating since Tuesday with significant change in mental status including disorientation, walking into the streets and grossly diminished in speed. He has refused medical treatment and presents with symptoms resembling a CVA. He is a risk to himself and requires evaluation. Admit to med psych for further evaluation,safety, stabilization. Obtain hospitalist consult for abnormal lab values as well as for bradycardia. . Orders Orders Electrocardiogram (10/24/17:) Ammonia (10/24/17:) Complete Blood Count With Diff (10/24/17:) Comprehensive Metabolic Panel (10/24/17:) Creatine Kinase (Cpk) (10/24/17:) Prothrombin Time / Inr (Pt) (10/24/17) Act Partial Throm Time (Ptt) (10/24/17:) Troponin I (10/24/17:) Thyroid Stimulating Hormone (10/24/17:) Urinalysis - C+S If Indicated (10/24/17:) Lactic Acid Sepsis Protocol (10/24/17:25) Chest, Single Ap (10/24/17 16:25) Ct Brain W/O Iv Contrast(Rout) (10/24/17 16:25) Blood Glucose (10/24/17:25) Ecg Monitoring (10/24/17:) Iv Access Insert/Monitor (10/24/17:) Cath For Specimen (10/24/17:) Oximetry (10/24/17:25) Sodium Chloride 0.9% Flush (Ns Flush) (10/24/17 16:30) Drug Screen, Random Urine (10/24/17 16:25) [place] (Li) (10/24/17 16:25) Psych Screen (10/24/17 16:25) Sodium Chlor 0.9% 1000 Ml Inj (Ns 1000 M (10/24/17 17:15) CKMB (10/24/17 16:35) CKMB% (10/24/17 16:35) Lactulose Liq (Lactulose Liq) (10/24/17 18:00) Diet Regular Basic (10/25/17 Breakfast) Results Vital Signs Date Time Temp Pulse Resp B/P (MAP) Pulse Ox O2 Delivery O2 Flow Rate FiO2 10/25/17 07:00 43 18 123/79 (94) 98 Room Air 10/25/17 00:58 59 16 119/68 (85) 99 Room Air 10/24/17 19:09 45 14 125/78 (94) 100 Room Air 10/24/17 19:09 45 10/24/17 16:14 97.5 49 16 107/70 (82) 100 Room Air Laboratory Tests Test 10/24/17 16:35 10/24/17 16:45 10/24/17 18:56 White Blood Count 5.7 Red Blood Count 4.39 Hemoglobin 12.9 Hematocrit 39.6 Mean Corpuscular Volume 90.2 Mean Corpuscular Hemoglobin 29.4 Mean Corpuscular Hemoglobin Concent 32.6 Red Cell Distribution Width 14.6 Platelet Count 181 Mean Platelet Volume 8.7 Neutrophils (%) (Auto) 56.8 Lymphocytes (%) (Auto) 29.5 Monocytes (%) (Auto) 6.6 Eosinophils (%) (Auto) 5.8 Basophils (%) (Auto) 1.3 Neutrophils # (Auto) 3.3 Lymphocytes # (Auto) 1.7 Monocytes # (Auto) 0.4 Eosinophils # (Auto) 0.3 Basophils # (Auto) 0.1 CBC Comment DIFF FINAL Differential Comment Prothrombin Time 10.5 Prothromb Time International Ratio 1.0 Activated Partial Thromboplast Time 30.8 Blood Urea Nitrogen 14 Creatinine 1.19 Random Glucose 89 Total Protein 6.7 Albumin 3.3 Calcium Level 8.2 Alkaline Phosphatase 89 Aspartate Amino Transf (AST/SGOT) 17 Alanine Aminotransferase (ALT/SGPT) 18 Total Bilirubin 0.3 Sodium Level 142 Potassium Level 4.0 Chloride Level 107 Carbon Dioxide Level 28.4 Anion Gap 7 Estimat Glomerular Filtration Rate 76 Total Creatine Kinase 346 Creatine Kinase MB 3.2 Creatine Kinase MB % 0.9 Troponin I LESS THAN 0.02 Thyroid Stimulating Hormone 3rd Gen 0.837 Lactic Acid Level 1.0 Ammonia 52 [place] Level 0.4 Urine Color YELLOW Urine Turbidity CLEAR Urine pH 7.0 Urine Specific [place] 1.010 Urine Protein NEG Urine Glucose (UA) NEG Urine Ketones NEG Urine Occult Blood NEG Urine Nitrite NEG Urine Bilirubin NEG Urine Urobilinogen LESS THAN 2 Urine Leukocyte Esterase NEG Urine Mucus FEW Microscopic Urinalysis Comment CATH-CULT NOT IND Urine Opiates Screen NEG Urine Barbiturates Screen NEG Urine Amphetamines Screen NEG Urine Benzodiazepines Screen NEG Urine Cocaine Screen NEG Urine Cannabinoids Screen NEG Diagnosis Primary Impression: Bradycardia Additional Impressions: Schizophrenia Altered mental status Admitting Information Admitting Physician Requests: Admit Condition: Stable Problem Qualifiers Additional Impressions: Schizophrenia Qualified Codes: F20.9 - Schizophrenia, unspecified Norma Spann Oct 25, 2017 08:50
[2017-10-25] MEDS ORDERED: ACETAMINOPHEN 325 MG TAB PO PRN (09:45)
[2017-10-25] MEDS ORDERED: MAGNESIUM HYDROXIDE SUSP 30 ML CUP PO PRN (09:45)
[2017-10-25 10:57] VITALS: BP 123/72
[2017-10-25] MEDS: SODIUM CHLOR 0.9% 1000 ML INJ 1,000 ML IV SCH ×2 (12:28→21:00)
--- NOTE | 2017-10-25 17:19 | EKG ---
Date Performed: 10/24/2017 Time Performed: 16:38:46 PTAGE: 57 years EKG: SINUS BRADYCARDIA BORDERLINE ECG PREVIOUS TRACING : 04/16/2017 21.17 Since the previous tracing, no significant change noted DOCTOR: Kitty Lozano Interpretating Date/Time 10/25/2017 17:18:32
[2017-10-25 18:06] VITALS: BP 125/68; PULSE 53; RESP 16; TEMP 99; O2SAT 95
[2017-10-26 05:17] VITALS: BP 128/83; PULSE 52; RESP 15; TEMP 97.7; O2SAT 98
[2017-10-26] MEDS: SODIUM CHLOR 0.9% 1000 ML INJ 1,000 ML IV SCH ×2 (05:25→16:30)
[2017-10-26 08:26] LABS: BICARBONATE 25.3 MEQ/L (21.0-32.0); BLOOD UREA NITROGEN 13 MG/DL (7-18); CALCIUM 8.4 MG/DL (8.5-10.1); CHLORIDE 111 MEQ/L (98-107); CREATININE 0.97 MG/DL (0.60-1.30); GLOMERULAR FILTRATION RATE 96 ML/MIN (>89); GLUCOSE,RANDOM 86 MG/DL (74-106); SODIUM (NA) 144 MEQ/L (136-145)
[2017-10-26 08:27] LABS: CHOLESTEROL 144 MG/DL (120-200); TRIGLYCERIDES 79 MG/DL (42-150)
[2017-10-26 08:29] LABS: CHOLESTEROL/ HDL RATIO 3.12 RATIO; HDL CHOLESTEROL 46.1 MG/DL (40.0-60.0); LDL CHOLESTEROL 82 MG/DL (0-99)
--- NOTE | 2017-10-26 09:23 | PD.CONS ---
HPI Service [facility] Consult Requested By Norma Spann Reason for Consult Medical management Primary Care Physician Unknown Diagnoses: History of Present Illness The patient is a 57-year-old male with a past medical history of CVA and schizophrenia who presented to the emergency department under Hanna act for psychiatric evaluation. Per the Hanna act report the patient has been decompensating since Tuesday with significant change in mental status including disorientation, walking into the streets and grossly diminished in speed. He has refused medical treatment and presents with symptoms resembling a CVA. The pt has been [facility] and medicine has been consulted for medical management. The pt is resting comfortably in bed. He denies any pain or shortness of breath. The sitter in the room mentions that the pt has been eating but has not been very ambulatory. The pt seemed to not want to answer the same questions over and over. The pt was lethargic and unable to answer questions comprehensively. Review of Systems Except as stated in HPI: all other systems reviewed are Neg Past Family Social History Allergies: Coded Allergies: No Known Allergies (Verified Allergy, Unknown, 04/16/17) Past Medical History History of CVA with residual slurred speech and left facial droop Schizophrenia HTN Past Surgical History Appendectomy Family History The pt is unable to provide family history at this time Social History The pt says he smokes 1/2 PPD. He denies alcohol and drugs. Physical Exam Vital Signs Vital Signs Date Time Temp Pulse Resp B/P (MAP) Pulse Ox O2 Delivery O2 Flow Rate FiO2 10/26/17 05:17 97.7 52 15 128/83 (98) 98 10/25/17 18:06 99.0 53 16 125/68 (87) 95 10/25/17 10:57 74 20 123/72 (89) 98 Physical Exam GENERAL: Resting in bed comfortably. SKIN: Warm and dry. HEAD: Atraumatic. Normocephalic. EYES: Pupils equal and round. No scleral icterus. No injection or drainage. Extraocular movements are intact. ENT: No nasal bleeding or discharge. Mucous membranes pink and moist. NECK: Trachea midline. No JVD. CARDIOVASCULAR: Bradycardic. No murmurs. RESPIRATORY: No accessory muscle use. Clear to auscultation. Breath sounds equal bilaterally. GASTROINTESTINAL: Abdomen soft, non-tender, nondistended. Hepatic and splenic margins not palpable. MUSCULOSKELETAL: Extremities without clubbing, cyanosis, or edema. No obvious deformities. NEUROLOGICAL: Drowsy but arousable, oriented to self and place. Motor grossly within normal limits. Five out of 5 muscle strength in the arms and legs. Slurred speech. Laboratory Laboratory Tests Test 10/26/17 07:46 Blood Urea Nitrogen 13 Creatinine 0.97 Random Glucose 86 Calcium Level 8.4 Sodium Level 144 Potassium Level 4.2 Chloride Level 111 Carbon Dioxide Level 25.3 Anion Gap 8 Estimat Glomerular Filtration Rate 96 Ammonia 26 Total Creatine Kinase 184 Triglycerides Level 79 Cholesterol Level 144 LDL Cholesterol 82 HDL Cholesterol 46.1 Cholesterol/HDL Ratio 3.12 Result Diagram: 10/24/17 1635 10/26/17 0746 Imaging Last Impressions Head CT 10/24/171624 Signed Impressions: CONCLUSION: 1. Negative noncontrast axial head CT Chest X-Ray 10/24/171624 Signed Impressions: CONCLUSION: Suspected minimal left base atelectasis or consolidation. Assessment and Plan Assessment and Plan Schizophrenia The pt presents with AMS and under a Hanna Act. Ammonia level was initially elevated but has normalized. - management per psychiatry. - check a B12 level. Bradycardia HR has been in the 40s and 50s. EKG with normal sinus rhythm. TSH WNL. - hold amlodipine. - continue to monitor. CVA The pt has slurred speech. He also seems weak. - PT/ OT/ ST. HTN Pt currently normotensive. - hold HCTZ and amlodipine. PPx: Ambulation Discussed Condition With Pt Wali Gao DO Oct 26, 2017 09:23
--- NOTE | 2017-10-26 14:47 | HHI.HP ---
Provisional Diagnosis Admission Date Oct 25, 2017 at 09:47 [place] I. Schizophrenia [place] II. Deferred [place] III. Hypertension, hyperammonemia [place] IV. Long history of medical mental problems [place] V. 45 Certification of Person's Competence To Provide Express and Informed Consent I have personally examined Saurav Kothari , a person being served at [facility] on, Oct 26, 2017 14:35. Express and informed consent means consent voluntarily given in writing, by a competent person, after sufficient explanation and disclosure of the subject matter involved to enable the person to make a knowing and willful decision without any element of force, fraud, deceit, duress, or other form of constraint or coercion. This person is 18 years of age or older, is not now known to be incompetent to consent to treatment with a guardian advocate, and does not have a health care surrogate or proxy currently making medical treatment decisions. I have found this person to be one of the following: [] Competent to provide express and informed consent, as defined above, for voluntary admission to this facility and is competent to provide express and informed consent for treatment. He/she has the consistent capacity to make well reasoned, willful, and knowing decisions concerning his or her medical or mental health treatment. The person fully and consistently understands the purpose of the admission for examination/placement and is fully capable of personally exercising all rights assured [place] Incompetent to provide express and informed consent to voluntary admission, and this is incompetent to provide express and informed consent to treatment. The person must be transferred to involuntary status and a petition for a guardian advocate filed with the Circuit Court. [x] Refusing to provide express and informed consent to voluntary admission but is competent to provide express and informed consent for treatment. The person must be discharged or transferred to involuntary status. Form shall be completed within 24 hours of a person's arrival at the receiving facility and filed in the clinical record of each person: 1. Admitted on a voluntary basis 2. Permitted to provide express and informed consent to his/her own treatment 3. Allowed to transfer from involuntary to voluntary status 4. Prior to permitting a person to consent to his or her own treatment after having been previously found incompetent to consent to treatment. History of Present Illness Capacity: Has Capacity HPI The patient is a 57-year-old man, domiciled in [facility], single, unemployed, supported by [facility], with psychiatric history of schizophrenia , multiple psychiatric hospitalizations, last hospitalization here in [place] in 2017 under the care of Dr. Randolph, recommendation review, no previous suicide attempts, outpatient care in [facility], the patient is on clonazepam 2 mg twice daily, Zoloft 50 mg, Abilify 15 mg, Invega sutena 234 mg, lithium 300 mg twice daily, benztropine 4 mg at bedtime, medical history of hypertension, who presented to emerge department under Hanna act for psychiatric evaluation. Per the Hanna act report, filed by psychologist at the [facility] where the patient resides , "patient has been decompensating since Tuesday with significant change in mental status including disorientation, walking into the streets and grossly diminished in speed. He has refused medical treatment and presents with symptoms resembling a CVA. He is a risk to himself and requires evaluation." On arrival to the ED patient was drowsy but arousable, initially H&P is limited due to patient's mental status. by Ms. Spann :"patient is seen this morning. he is asleep but awakens with verbal prompting . He remains sleepy. His speech s very difficult to understand as he mumbles but makes an effort at answering questions. he does report that he is hearing voices at this time. He does not appear to be responding to halluciantions. Not suicidal. He did write on a piece of paper that he wanted to go to the crisis center. Telephone call to psychologist who placed patient under BA , Eloy Khan at [phone]. Message left as he is unavailable. Telephone call to [facility] to obtain further clinical information . I spoke with Aminta who states that the patient has had gradual decline in his functioning for the past 4 weeks including gait impairment, slurring of his words. he has refused to comply with getting a CT scan. CT of brain was negative. Chest X Ray with some left base consolidation. Li level 0.4 meq. Ammonia level initially 52, now 26. Patient was given lactulose. CK 346. On my psychiatric evaluation today the patient is calm, a little bit confused, but oriented 3. The patient has slurred/incoherent speech result of CVA. But, he is able to tell me that he feels much better. Reports okay mood. At this moment he denies visual and auditory hallucinations. At some point becomes disorganized, but he is redirectable. Compliant with medications, no significant side effects at the moment. He denies suicidal and homicidal ideation. He denies the use of illegal drugs or alcohol. Review of Systems Constitutional: DENIES: Diaphoretic episodes, Fatigue, Fever, Weight gain, Weight loss, Chills, Dizziness, Change in appetite, Night Sweats Endocrine: DENIES: Heat/cold intolerance, Polydipsia, Polyuria, Polyphagia Eyes: DENIES: Blurred vision, Diplopia, Eye inflammation, Eye pain, Vision loss , Photosensitivity, Double Vision Ears, nose, mouth, throat: DENIES: Tinnitus, Hearing loss, Vertigo, Nasal discharge, Oral lesions, Throat pain, Hoarseness, Ear Pain, Running Nose, Epistaxis, Sinus Pain, Toothache, Odynophagia Respiratory: DENIES: Apneas, Cough, Snoring, Wheezing, Hemoptysis, Sputum production, Shortness of breath Cardiovascular: DENIES: Chest pain, Palpitations, Syncope, Dyspnea on Exertion , PND, Lower Extremity Edema, Orthopnea, Claudication Gastrointestinal: DENIES: Abdominal pain, Black stools, Bloody stools, Constipation, Diarrhea, Nausea, Vomiting, Difficulty Swallowing, Anorexia Genitourinary: DENIES: Sexual dysfunction, Urinary frequency, Urinary incontinence, Urgency, Hematuria, Dysuria, Nocturia, Penile Discharge, Testicular Pain, Testicular Swelling Musculoskeletal: DENIES: Joint pain, Muscle aches, Stiffness, Joint Swelling, Back pain, Neck pain Integumentary: DENIES: Abnormal pigmentation, Nail changes, Pruritus, Rash Hematologic/lymphatic: DENIES: Bruising, Lymphadenopathy Immunologic/allergic: DENIES: Eczema, Urticaria Neurologic: DENIES: Abnormal gait, Headache, Localized weakness, Paresthesias, Seizures, Speech Problems, Tremor, Poor Balance Psychiatric: COMPLAINS OF: Hallucinations, DENIES: Anxiety, Confusion, Mood changes, Depression, Agitation, Suicidal Ideation, Homicidal Ideation, Delusions Substance Abuse History Drugs/Alcohol past 12 months Patient denies the use of illegal drugs and alcohol Past Family Social History Coded Allergies: No Known Allergies (Verified Allergy, Unknown, 04/16/17) Reported Medications Solifenacin (Vesicare) 10 Mg Tab, 10 MG PO HS for Urinary Symptom Managemen, # 30 TAB 0 Refills 10/25/17 Sertraline (Zoloft) 50 Mg Tab, 50 MG PO DAILY, #30 TAB 0 Refills 10/25/17 [place] Carbonate ([place] Carbonate) 300 Mg Cap, 300 MG PO HS, CAP 0 Refills 10/25/17 Paliperidone Palmitate Inj (Invega Sustenna Inj) 234 Mg/1.5 Ml Inj, 234 MG IM Q28D for Schizophrenia, #1 VIAL 0 Refills 10/25/17 Hydrochlorothiazide (Hydrochlorothiazide) 12.5 Mg Cap, 12.5 MG PO DAILY, #30 CAP 0 Refills 10/25/17 Clonazepam (Klonopin) 2 Mg Tab, 2 MG PO HS, #60 TAB 0 Refills 10/25/17 Benztropine (Benztropine) 0.5 Mg Tab, 4 MG PO HS, #30 TAB 0 Refills 10/25/17 Aripiprazole (Abilify) 15 Mg Tab, 15 MG PO HS, #30 TAB 0 Refills 10/25/17 Amlodipine (Amlodipine) 5 Mg Tab, 5 MG PO DAILY for Blood Pressure Management, # 30 TAB 0 Refills 10/25/17 Discontinued Scripts Doxycycline Hyclate (Doxycycline Hyclate) 100 Mg Cap, 100 MG PO BID for Infection for 10 Days, #20 CAP 0 Refills Prov:Laina Hanson MD 04/26/17 Cephalexin (Keflex) 500 Mg Capsule, 500 MG PO Q6H for Infection for 10 Days, # 40 CAP 0 Refills Prov:Laina Hanson MD 04/26/17 Quetiapine (Quetiapine) 100 Mg Tab, 150 MG PO BID for health, #60 TAB 0 Refills Prov:Brian Espinosa MD 04/26/17 Doxycycline Hyclate (Doxycycline Hyclate) 100 Mg Cap, 100 MG PO BID for Infection for 10 Days, #20 CAP Prov:Laina Hanson MD 04/26/17 Cephalexin (Cephalexin) 500 Mg Cap, 500 MG PO Q6HR for Infection for 10 Days, # 60 CAP Prov:Laina Hanson MD 04/26/17 Quetiapine (Seroquel) 25 Mg Tab, 25 MG PO BID for Anxiety for 10 Days, #20 TAB 0 Refills Prov:Km Kohler MD 04/20/17 Vancomycin/0.9 % Sod Chloride (Vancomycin 1 G/100Ml-0.9% NaCl) 1 Gram/100 Ml Plast..bag, 1 GM IV BID for Infection for 3 Days, BAG 0 Refills Prov:Km Kohler MD 04/20/17 Piperacillin-Tazobactam Inj (Zosyn Inj) 3.375 Gram Inj, 3.375 GM IV Q6HR for Infection for 3 Days, BAG 0 Refills Prov:Km Kohler MD 04/20/17 Current Medications Medications (Trade) Dose Ordered Sig/Jonas Route Start Time Stop Time Status Last Admin (NS Flush) 2 ml UNSCH PRN IV FLUSH 10/24/17 16:30 (Tylenol) 650 mg Q4H PRN PO 10/25/17 09:45 (Milk Of Magnesia Liq) 30 ml DAILY PRN PO 10/25/17 09:45 (Mag-Al Plus Susp Liq) 30 ml Q6H PRN PO 10/25/17 09:45 Sodium Chloride 1,000 ml @ 100 mls/hr Q10H IV 10/25/17 10:30 10/26/17 05:25 Family Psych History No family psychiatric history Social History The patient is domiciled in [facility], single, unemployed, supported by [facility] Patient's Strengths (min. 2) Outpatient psychiatric care Physical Exam Patient is quite hypoactive, but no tremors, no EPS, no withdrawal, no catatonia present Vital Signs Vital Signs Date Time Temp Pulse Resp B/P (MAP) Pulse Ox O2 Delivery O2 Flow Rate FiO2 10/26/17 05:17 97.7 52 15 128/83 (98) 98 10/25/17 07:00 Room Air I/O 10/26/17 10/26/17 10/27/17 08:00 16:00 00:00 Intake Total 720 ml 1680 ml Balance 720 ml 1680 ml Lab Results Test 10/26/17 07:46 Blood Urea Nitrogen 13 MG/DL Creatinine 0.97 MG/DL Random Glucose 86 MG/DL Calcium Level 8.4 MG/DL Sodium Level 144 MEQ/L Potassium Level 4.2 MEQ/L Chloride Level 111 MEQ/L Carbon Dioxide Level 25.3 MEQ/L Anion Gap 8 MEQ/L Estimat Glomerular Filtration Rate 96 ML/MIN Ammonia 26 MCMOL/L Total Creatine Kinase 184 U/L Triglycerides Level 79 MG/DL Cholesterol Level 144 MG/DL LDL Cholesterol 82 MG/DL HDL Cholesterol 46.1 MG/DL Cholesterol/HDL Ratio 3.12 RATIO Vitamin B12 Level 469 PG/ML Mental Status Examination Appearance: Appropriate Consciousness: Alert Orientation: Person, Place, Situation Motor Activity: Abnormal gait Speech: Other (slurred, dificult to understand) Language: Adequate Fund of Knowledge: Inadequate Attention and Concentration: Inadequate Memory: Impaired Mood: Appropriate Affect: Appropriate Thought Process & Associations: Other (diminished) Thought Content: Hallucinations Hallucination Type: Auditory Delusion Type: None Suicidal Ideation: No Suicidal Plan: No Suicidal Intention: No Homicidal Ideation: No Homicidal Plan: No Homicidal Intention: No Insight: Fair Judgment: Poor Assessment & Plan Problem List: (1) Schizophrenia ICD Codes: F20.9 - Schizophrenia, unspecified Status: Acute Assessment & Plan: The patient was admitted in psychiatry due to altered mental status, decompensated psychosis, increased auditory hallucinations, tangential speech and increased reality distortion. The patient was admitted in psychiatry for stabilization and safety. He presented with hyperammonemia, was treated by hospitalist team and finally is a stable. Today I will restart his outpatient psychotropics, Abilify 50 mg, Zoloft 50 mg, lithium 200 mg twice daily, but will hold benztropine 4 mg at bedtime to avoid more impairment in cognition. Will consult psychiatry for second opinion. Hospitalist input appreciated. dredge worker intervention for psychosocial assessment, individual and group therapies, collateral information and to coordinate safe discharge. Assessment & Plan Estimated LOS: days Problem Qualifiers (1) Schizophrenia: Qualified Codes: F20.9 - Schizophrenia, unspecified Brian Espinosa MD Oct 26, 2017 14:47
--- NOTE | 2017-10-26 15:28 | PD.PSY.CON ---
Provisional Diagnosis Admission Date Oct 25, 2017 at 09:47 [place] I. Schizophrenia [place] II. Deferred [place] III. Hypertension, hyperammonemia [place] IV. Long history of medical mental problems [place] V. 45 History of Present Illness Service Psychiatry Consult Requested By Dr. Mao Reason for Consult Second opinion petition supporting H[facility] Primary Care Physician Unknown HPI The patient is a 57-year-old man, domiciled in [facility], single, unemployed, supported by [facility], with psychiatric history of schizophrenia , multiple psychiatric hospitalizations, last hospitalization here in [place] in 2017 under the care of Dr. Randolph, recommendation review, no previous suicide attempts, outpatient care in [facility], the patient is on clonazepam 2 mg twice daily, Zoloft 50 mg, Abilify 15 mg, Invega sutena 234 mg, lithium 300 mg twice daily, benztropine 4 mg at bedtime, medical history of hypertension, who presented to emerge department under Hanna act for psychiatric evaluation. Per the Amperion act report, filed by psychologist at the [facility] where the patient resides , "patient has been decompensating since Tuesday with significant change in mental status including disorientation, walking into the streets and grossly diminished in speed. He has refused medical treatment and presents with symptoms resembling a CVA. He is a risk to himself and requires evaluation." On arrival to the ED patient was drowsy but arousable, initially H&P is limited due to patient's mental status. by Ms. Spann :"patient is seen this morning. he is asleep but awakens with verbal prompting . He remains sleepy. His speech s very difficult to understand as he mumbles but makes an effort at answering questions. he does report that he is hearing voices at this time. He does not appear to be responding to halluciantions. Not suicidal. He did write on a piece of paper that he wanted to go to the crisis center. Telephone call to psychologist who placed patient under BA , Eloy Khan at [phone]. Message left as he is unavailable. Telephone call to [facility] to obtain further clinical information . I spoke with Aminta who states that the patient has had gradual decline in his functioning for the past 4 weeks including gait impairment, slurring of his words. he has refused to comply with getting a CT scan. CT of brain was negative. Chest X Ray with some left base consolidation. Li level 0.4 meq. Ammonia level initially 52, now 26. Patient was given lactulose. CK 346. On my psychiatric evaluation today the patient is calm, a little bit confused, but oriented 3. The patient has slurred/incoherent speech result of CVA. But, he is able to tell me that he feels much better. Reports okay mood. At this moment he denies visual and auditory hallucinations. At some point becomes disorganized, but he is redirectable. Compliant with medications, no significant side effects at the moment. He denies suicidal and homicidal ideation. He denies the use of illegal drugs or alcohol 10/26/2017 Above H&P by Dr. Mao reviewed and agreed with. Patient is a Dr. Mao service under the Amperion act. Dr. Mao has signed first opinion petition supporting Amper[place] act. I concur patient meets criteria for involuntary psychiatric hospitalization on the Hanna act. Patient was seen by me with nurse holly. He continues irritable quite confusing and difficult to understand. He is irritable with me with a marked angry look on his face. At this time he does meet criteria. Past Family Social History Coded Allergies: No Known Allergies (Verified Allergy, Unknown, 04/16/17) Reported Medications Solifenacin (Vesicare) 10 Mg Tab, 10 MG PO HS for Urinary Symptom Managemen, # 30 TAB 0 Refills 10/25/17 Sertraline (Zoloft) 50 Mg Tab, 50 MG PO DAILY, #30 TAB 0 Refills 10/25/17 [place] Carbonate ([place] Carbonate) 300 Mg Cap, 300 MG PO HS, CAP 0 Refills 10/25/17 Paliperidone Palmitate Inj (Invega Sustenna Inj) 234 Mg/1.5 Ml Inj, 234 MG IM Q28D for Schizophrenia, #1 VIAL 0 Refills 10/25/17 Hydrochlorothiazide (Hydrochlorothiazide) 12.5 Mg Cap, 12.5 MG PO DAILY, #30 CAP 0 Refills 10/25/17 Clonazepam (Klonopin) 2 Mg Tab, 2 MG PO HS, #60 TAB 0 Refills 10/25/17 Benztropine (Benztropine) 0.5 Mg Tab, 4 MG PO HS, #30 TAB 0 Refills 10/25/17 Aripiprazole (Abilify) 15 Mg Tab, 15 MG PO HS, #30 TAB 0 Refills 10/25/17 Amlodipine (Amlodipine) 5 Mg Tab, 5 MG PO DAILY for Blood Pressure Management, # 30 TAB 0 Refills 10/25/17 Discontinued Scripts Doxycycline Hyclate (Doxycycline Hyclate) 100 Mg Cap, 100 MG PO BID for Infection for 10 Days, #20 CAP 0 Refills Prov:Laina Hanson MD 04/26/17 Cephalexin (Keflex) 500 Mg Capsule, 500 MG PO Q6H for Infection for 10 Days, # 40 CAP 0 Refills Prov:Laina Hanson MD 04/26/17 Quetiapine (Quetiapine) 100 Mg Tab, 150 MG PO BID for health, #60 TAB 0 Refills Prov:Brian Espinosa MD 04/26/17 Doxycycline Hyclate (Doxycycline Hyclate) 100 Mg Cap, 100 MG PO BID for Infection for 10 Days, #20 CAP Prov:Laina Hanson MD 04/26/17 Cephalexin (Cephalexin) 500 Mg Cap, 500 MG PO Q6HR for Infection for 10 Days, # 60 CAP Prov:Laina Hanson MD 04/26/17 Quetiapine (Seroquel) 25 Mg Tab, 25 MG PO BID for Anxiety for 10 Days, #20 TAB 0 Refills Prov:Km Kohler MD 04/20/17 Vancomycin/0.9 % Sod Chloride (Vancomycin 1 G/100Ml-0.9% NaCl) 1 Gram/100 Ml Plast..bag, 1 GM IV BID for Infection for 3 Days, BAG 0 Refills Prov:Km Kohler MD 04/20/17 Piperacillin-Tazobactam Inj (Zosyn Inj) 3.375 Gram Inj, 3.375 GM IV Q6HR for Infection for 3 Days, BAG 0 Refills Prov:Km Kohler MD 04/20/17 Current Medications Medications (Trade) Dose Ordered Sig/Jonas Route Start Time Stop Time Status Last Admin (NS Flush) 2 ml UNSCH PRN IV FLUSH 10/24/17 16:30 (Tylenol) 650 mg Q4H PRN PO 10/25/17 09:45 (Milk Of Magnesia Liq) 30 ml DAILY PRN PO 10/25/17 09:45 (Mag-Al Plus Susp Liq) 30 ml Q6H PRN PO 10/25/17 09:45 Sodium Chloride 1,000 ml @ 100 mls/hr Q10H IV 10/25/17 10:30 10/26/17 05:25 (Norvasc) 5 mg DAILY PO 10/27/17 09:00 UNV (Abilify) 15 mg HS PO 10/26/17 21:00 UNV (KlonoPIN) 2 mg HS PO 10/26/17 21:00 UNV (Microzide) 12.5 mg DAILY PO 10/26/17 14:45 UNV ([place] Carbonate) 300 mg HS PO 10/26/17 21:00 UNV (Zoloft) 50 mg DAILY PO 10/26/17 14:45 UNV Non-Formulary Medication 10 mg HS PO 10/26/17 21:00 UNV Patient's Strengths (min. 2) Outpatient psychiatric care Physical Exam Vital Signs Vital Signs Date Time Temp Pulse Resp B/P (MAP) Pulse Ox O2 Delivery O2 Flow Rate FiO2 10/26/17 05:17 97.7 52 15 128/83 (98) 98 10/25/17 07:00 Room Air I/O 10/26/17 10/26/17 10/27/17 08:00 16:00 00:00 Intake Total 720 ml 1680 ml Balance 720 ml 1680 ml Lab Results Test 10/26/17 07:46 Blood Urea Nitrogen 13 MG/DL Creatinine 0.97 MG/DL Random Glucose 86 MG/DL Calcium Level 8.4 MG/DL Sodium Level 144 MEQ/L Potassium Level 4.2 MEQ/L Chloride Level 111 MEQ/L Carbon Dioxide Level 25.3 MEQ/L Anion Gap 8 MEQ/L Estimat Glomerular Filtration Rate 96 ML/MIN Ammonia 26 MCMOL/L Total Creatine Kinase 184 U/L Triglycerides Level 79 MG/DL Cholesterol Level 144 MG/DL LDL Cholesterol 82 MG/DL HDL Cholesterol 46.1 MG/DL Cholesterol/HDL Ratio 3.12 RATIO Vitamin B12 Level 469 PG/ML Mental Status Examination Appearance: Appropriate Consciousness: Alert Orientation: Person, Place, Situation Motor Activity: Abnormal gait Speech: Other (slurred, dificult to understand) Language: Adequate Fund of Knowledge: Inadequate Attention and Concentration: Inadequate Memory: Impaired Mood: Appropriate Affect: Appropriate Thought Process & Associations: Other (diminished) Thought Content: Hallucinations Hallucination Type: Auditory Delusion Type: None Suicidal Ideation: No Suicidal Plan: No Suicidal Intention: No Homicidal Ideation: No Homicidal Plan: No Homicidal Intention: No Insight: Fair Judgment: Poor Assessment & Plan Problem List: (1) Schizophrenia ICD Codes: F20.9 - Schizophrenia, unspecified Status: Acute Assessment & Plan Estimated LOS: days Problem Qualifiers (1) Schizophrenia: Qualified Codes: F20.9 - Schizophrenia, unspecified Reji Amin MD Oct 26, 2017 15:28
[2017-10-26 18:00] VITALS: BP 137/76; PULSE 59; RESP 16; TEMP 98.9; O2SAT 98
[2017-10-26 18:02] LABS: HEMOGLOBIN A1C 5.4 % (4.3-6.0)
[2017-10-26] MEDS: TOLTERODINE TARTRATE 4 MG CAP LA PO SCH (20:37)
[2017-10-26] MEDS: clonazePAM 1 MG TAB PO SCH (20:37)
[2017-10-26] MEDS ORDERED: ARIPiprazole 15 MG TAB PO SCH (21:00)
[2017-10-26] MEDS ORDERED: LITHIUM CARBONATE 300 MG CAP PO SCH (21:00)
[2017-10-27] MEDS: SODIUM CHLOR 0.9% 1000 ML INJ 1,000 ML IV SCH ×3 (01:57→22:03)
[2017-10-27 06:35] VITALS: BP 124/69; PULSE 46; RESP 18; TEMP 97.2; O2SAT 98
[2017-10-27] MEDS: SERTRALINE HCL 50 MG TAB PO SCH (08:15)
[2017-10-27] MEDS: amLODIPine BESYLATE 5 MG TAB PO SCH (08:15)
[2017-10-27] MEDS: HYDROCHLOROTHIAZIDE 12.5 MG CAP PO SCH (08:16)
[2017-10-27] MEDS: ALUMINUM/MAGNESIUM/SIMETH 30 ML CUP PO PRN ×2 (09:20→10:18)
--- NOTE | 2017-10-27 09:26 | HHI.PR ---
Subjective Remarks The patient was resting in bed comfortably. He was more awake. He had no acute concerns. He said he ate his breakfast. Objective Vitals Vital Signs Date Time Temp Pulse Resp B/P (MAP) Pulse Ox O2 Delivery O2 Flow Rate FiO2 10/27/17 06:35 97.2 46 18 124/69 (87) 98 10/26/17 18:00 98.9 59 16 137/76 (96) 98 I/O 10/26/17 10/26/17 10/26/17 10/27/17 10/27/17 10/27/17 07:00 15:00 23:00 07:00 15:00 23:00 Intake Total 2400 ml 600 ml Output Total 400 ml Balance 2400 ml 200 ml Intake Oral 2400 ml 600 ml Output Urine Total 400 ml Result Diagram: 10/24/17 1635 10/26/17 0746 Imaging Last Impressions Head CT 10/24/17 1625 Signed Impressions: CONCLUSION: 1. Negative noncontrast axial head CT Chest X-Ray 10/24/171624 Signed Impressions: CONCLUSION: Suspected minimal left base atelectasis or consolidation. Objective Remarks GENERAL: Resting in bed comfortably. SKIN: Warm and dry. HEAD: Atraumatic. Normocephalic. EYES: Pupils equal and round. No scleral icterus. No injection or drainage. Extraocular movements are intact. ENT: No nasal bleeding or discharge. Mucous membranes pink and moist. NECK: Trachea midline. No JVD. CARDIOVASCULAR: Bradycardic. No murmurs. RESPIRATORY: No accessory muscle use. Clear to auscultation. Breath sounds equal bilaterally. GASTROINTESTINAL: Abdomen soft, non-tender, nondistended. Hepatic and splenic margins not palpable. MUSCULOSKELETAL: Extremities without clubbing, cyanosis, or edema. No obvious deformities. NEUROLOGICAL: Awake and alert. Motor grossly within normal limits. Five out of 5 muscle strength in the arms and legs. Slurred speech. A/P Assessment and Plan Schizophrenia. Hyperammonemia The pt presents with AMS and under a Hanna Act. Ammonia level was initially elevated but has normalized following lactulose. LFTs unremarkable. B12 level within normal limits. - management per psychiatry. - repeat ammonia level in AM. Bradycardia HR has been in the 40s and 50s. EKG with normal sinus rhythm. TSH WNL. - hold amlodipine. - repeat EKG. CVA The pt has slurred speech. He also seems weak. - PT/ OT/ ST. HTN Pt currently normotensive. - holding HCTZ and amlodipine. PPx: Ambulation Wali Gao DO Oct 27, 2017 09:26
--- NOTE | 2017-10-27 14:13 | HHI.PYPN ---
Subjective Remarks Patient seen in his room with nurse holly, chart reviewed, patient compliant medication. Patient sitting on the end of his bed mumbling to himselff. Continues somewhat vigilant and paranoid. Mumbling about wanting to return to [facility]. Patient remains paranoid and psychotic. [place] level drawn on the came back at 0.4 we will increase lithium to 300 mg twice daily check a blood level in about 4 days. We will also increase Abilify to 15 mg twice daily Review of Systems Except as stated in HPI: all other systems reviewed are Neg Mental Status Examination Appearance: Appropriate Consciousness: Alert Orientation: Person, Place, Situation Motor Activity: Abnormal gait Speech: Other (slurred, dificult to understand) Language: Adequate Fund of Knowledge: Inadequate Attention and Concentration: Inadequate Memory: Impaired Mood: Appropriate Affect: Appropriate Thought Process & Associations: Other (diminished) Thought Content: Hallucinations Hallucination Type: Auditory Delusion Type: None Suicidal Ideation: No Suicidal Plan: No Suicidal Intention: No Homicidal Ideation: No Homicidal Plan: No Homicidal Intention: No Insight: Fair Judgment: Poor Results Vitals/IOs Vital Signs Date Time Temp Pulse Resp B/P (MAP) Pulse Ox O2 Delivery O2 Flow Rate FiO2 10/27/17 06:35 97.2 46 18 124/69 (87) 98 10/25/17 07:00 Room Air Assessment & Plan Problem List: (1) Schizophrenia ICD Codes: F20.9 - Schizophrenia, unspecified Status: Acute Assessment & Plan Estimated LOS: days patient continues somewhat psychotic paranoid, though no significant behavioral problems. Please medication adjustments above Justification for Cont. Inpt. This time patient would decompensate a place to a lower level of care Discharge Planning Possible return to his [facility] Problem Qualifiers (1) Schizophrenia: Qualified Codes: F20.0 - Paranoid schizophrenia Reji Amin MD Oct 27, 2017 14:13
[2017-10-27 18:00] VITALS: BP 110/68; PULSE 50; RESP 18; TEMP 99; O2SAT 96
--- NOTE | 2017-10-27 19:37 | EKG ---
Date Performed: 10/27/2017 Time Performed: 11:17:05 PTAGE: 57 years EKG: SINUS BRADYCARDIA Anterolateral ST elevation potentially consistent with acute injury patte rn versus early replorization BORDERLINE ECG PREVIOUS TRACING : 10/24/2017 16.38 Since the previous tracing, no significant change noted DOCTOR: Pam Lundy Interpretating Date/Time 10/27/2017 19:35:17
[2017-10-27] MEDS: clonazePAM 1 MG TAB PO SCH (21:00)
[2017-10-27] MEDS: TOLTERODINE TARTRATE 4 MG CAP LA PO SCH (21:22)
[2017-10-27] MEDS: ARIPiprazole 15 MG TAB PO SCH (21:23)
[2017-10-27] MEDS: LITHIUM CARBONATE 300 MG CAP PO SCH (21:23)
[2017-10-28 06:48] VITALS: BP 116/68; PULSE 67; RESP 18; TEMP 99.4; O2SAT 94
--- NOTE | 2017-10-28 08:14 | HHI.PYPN ---
Subjective Remarks Patient seen in his room with floor staff, chart reviewed, discussed with nurse , patient trying mixed compliance with medication. Patient more alert today than continues diffusely confused disoriented babbling in mixed Slovak and [place]. He is now out of soft restraints Review of Systems Except as stated in HPI: all other systems reviewed are Neg Mental Status Examination Appearance: Appropriate Consciousness: Alert Orientation: Person, Place, Situation Motor Activity: Abnormal gait Speech: Other (slurred, dificult to understand) Language: Adequate Fund of Knowledge: Inadequate Attention and Concentration: Inadequate Memory: Impaired Mood: Appropriate Affect: Appropriate Thought Process & Associations: Other (diminished) Thought Content: Hallucinations Hallucination Type: Auditory Delusion Type: None Suicidal Ideation: No Suicidal Plan: No Suicidal Intention: No Homicidal Ideation: No Homicidal Plan: No Homicidal Intention: No Insight: Fair Judgment: Poor Results Vitals/IOs Vital Signs Date Time Temp Pulse Resp B/P (MAP) Pulse Ox O2 Delivery O2 Flow Rate FiO2 10/28/17 06:48 99.4 67 18 116/68 (84) 94 10/25/17 07:00 Room Air Intake and Output 10/28/17 10/28/17 10/29/17 08:00 16:00 00:00 Intake Total 0 ml Balance 0 ml Assessment & Plan Problem List: (1) Schizophrenia ICD Codes: F20.9 - Schizophrenia, unspecified Status: Acute Assessment & Plan Estimated LOS: days patient continues confused and demented needing occasional redirection intervention, compliant medication Justification for Cont. Inpt. At this time patient would decompensate if placed in an inappropriate level of care Discharge Planning To be determined Problem Qualifiers (1) Schizophrenia: Qualified Codes: F20.0 - Paranoid schizophrenia Reji Amin MD Oct 28, 2017 08:14
--- NOTE | 2017-10-28 08:18 | HHI.PYPN ---
Subjective Remarks Patient seen in his room with floor staff, chart reviewed, patient compliant medications, patient discussed with nurse. Patient laying in his bed with covers to his chin. When questioned a little he was alert continues diffusely confused irritable and somewhat paranoid with me. His breakfast tray was sitting on his bedside stand. When I pointed that out to him he was somewhat more cooperative in leaning towards eating his food Review of Systems Except as stated in HPI: all other systems reviewed are Neg Mental Status Examination Appearance: Appropriate Consciousness: Alert Orientation: Person, Place, Situation Motor Activity: Abnormal gait Speech: Other (slurred, dificult to understand) Language: Adequate Fund of Knowledge: Inadequate Attention and Concentration: Inadequate Memory: Impaired Mood: Appropriate Affect: Appropriate Thought Process & Associations: Other (diminished) Thought Content: Hallucinations Hallucination Type: Auditory Delusion Type: None Suicidal Ideation: No Suicidal Plan: No Suicidal Intention: No Homicidal Ideation: No Homicidal Plan: No Homicidal Intention: No Insight: Fair Judgment: Poor Results Vitals/IOs Vital Signs Date Time Temp Pulse Resp B/P (MAP) Pulse Ox O2 Delivery O2 Flow Rate FiO2 10/28/17 06:48 99.4 67 18 116/68 (84) 94 10/25/17 07:00 Room Air Intake and Output 10/28/17 10/28/17 10/29/17 08:00 16:00 00:00 Intake Total 0 ml Balance 0 ml Assessment & Plan Problem List: (1) Schizophrenia ICD Codes: F20.9 - Schizophrenia, unspecified Status: Acute Assessment & Plan Estimated LOS: days patient continues psychotic and diffusely confused, for now continue treatment no change Justification for Cont. Inpt. At this time patient would decompensate a place to a lower level of care Discharge Planning To be determined Problem Qualifiers (1) Schizophrenia: Qualified Codes: F20.0 - Paranoid schizophrenia Reji Amin MD Oct 28, 2017 08:18
[2017-10-28] MEDS: amLODIPine BESYLATE 5 MG TAB PO SCH ×2 (09:00→10:25)
[2017-10-28] MEDS: SERTRALINE HCL 50 MG TAB PO SCH (09:00)
[2017-10-28] MEDS: ARIPiprazole 15 MG TAB PO SCH ×2 (09:00→20:38)
[2017-10-28] MEDS: LITHIUM CARBONATE 300 MG CAP PO SCH ×2 (09:00→20:38)
[2017-10-28] MEDS: HYDROCHLOROTHIAZIDE 12.5 MG CAP PO SCH ×2 (09:00→10:26)
[2017-10-28] MEDS: ASPIRIN 81 MG CHEW TAB CHEW SCH (10:00)
--- NOTE | 2017-10-28 10:01 | HHI.PR ---
Subjective Remarks Patient is noted to be talking to himself. Patient denies cp/sob. Denies chest pain. Objective Vitals Vital Signs Date Time Temp Pulse Resp B/P (MAP) Pulse Ox O2 Delivery O2 Flow Rate FiO2 10/28/17 06:48 99.4 67 18 116/68 (84) 94 10/27/17 18:00 99.0 50 18 110/68 (82) 96 I/O 10/27/17 10/27/17 10/27/17 10/28/17 10/28/17 10/28/17 07:00 15:00 23:00 07:00 15:00 23:00 Intake Total 960 ml 0 ml 240 ml Balance 960 ml 0 ml 240 ml Intake Oral 960 ml 0 ml 240 ml # Voids 2 2 Result Diagram: 10/24/17 1635 10/26/17 0746 Imaging Last Impressions Head CT 10/24/17 1625 Signed Impressions: CONCLUSION: 1. Negative noncontrast axial head CT Chest X-Ray 10/24/171624 Signed Impressions: CONCLUSION: Suspected minimal left base atelectasis or consolidation. Objective Remarks GENERAL: Sitting up in bed SKIN: Warm and dry. HEAD: Atraumatic. Normocephalic. EYES: Pupils equal and round. No scleral icterus. No injection or drainage. Extraocular movements are intact. ENT: No nasal bleeding or discharge. Mucous membranes pink and moist. NECK: Trachea midline. No JVD. CARDIOVASCULAR: Bradycardic. No murmurs. RESPIRATORY: No accessory muscle use. Clear to auscultation. Breath sounds equal bilaterally. GASTROINTESTINAL: Abdomen soft, non-tender, nondistended. Hepatic and splenic margins not palpable. MUSCULOSKELETAL: Extremities without clubbing, cyanosis, or edema. No obvious deformities. NEUROLOGICAL: Awake and alert. Motor grossly within normal limits. Five out of 5 muscle strength in the arms and legs. Slurred speech. A/P Problem List: (1) Schizophrenia ICD Code: F20.9 - Schizophrenia, unspecified Status: Acute Plan: The patient presented with altered mental status under Hanna act. Ammonia level found to be elevated but has trended down to normal levels with lactulose. LFTs are unremarkable. B12 within normal limits. Patient likely with toxic encephalopathy due to elevated ammonia levels. We will order liver ultrasound to assess liver parenchyma. (2) Hyperammonemia ICD Code: E72.20 - Disorder of urea cycle metabolism, unspecified Plan: On admission elevated at 52. Trended down to normal levels. Continue lactulose. (3) Bradycardia ICD Code: R00.1 - Bradycardia, unspecified Status: Acute Plan: Patient with asymptomatic bradycardia. EKG with sinus rhythm and possible early depolarization. Heart rate noted to be dropping into the 40s. Amlodipine discontinued, heart rate much improved. Continue to monitor vital signs. (4) HTN (hypertension) ICD Code: I10 - Essential (primary) hypertension Plan: Blood pressure stable off antihypertensive medications. Continue to monitor vital signs. (5) H/O: CVA (cerebrovascular accident) ICD Code: Z86.73 - Personal history of transient ischemic attack (TIA), and cerebral infarction without residual deficits Plan: Patient has residual slurred speech. Continue PT/OT/ST. Head CT negative. Patient not currently on aspirin. I will start on aspirin 160 mg p.o. daily. Assessment and Plan DVT prophylaxis: Patient ambulatory. Discharge Planning As per primary team. Problem Qualifiers (1) Schizophrenia: Qualified Codes: F20.0 - Paranoid schizophrenia (2) HTN (hypertension): Qualified Codes: I10 - Essential (primary) hypertension Jimmy Rainey MD Oct 28, 2017 10:01
[2017-10-28] MEDS: SODIUM CHLOR 0.9% 1000 ML INJ 1,000 ML IV SCH (18:30)
[2017-10-28 18:44] VITALS: BP 105/61; PULSE 63; RESP 18; TEMP 98; O2SAT 93
[2017-10-28] MEDS: clonazePAM 1 MG TAB PO SCH (19:42)
[2017-10-28] MEDS: TOLTERODINE TARTRATE 4 MG CAP LA PO SCH (20:38)
[2017-10-29] MEDS: SODIUM CHLOR 0.9% 1000 ML INJ 1,000 ML IV SCH ×2 (03:44→14:30)
[2017-10-29 06:42] VITALS: BP 85/52; PULSE 51; RESP 16; O2SAT 94
[2017-10-29] MEDS: ASPIRIN 81 MG CHEW TAB CHEW SCH (09:52)
[2017-10-29] MEDS: SERTRALINE HCL 50 MG TAB PO SCH (09:52)
[2017-10-29] MEDS: LITHIUM CARBONATE 300 MG CAP PO SCH ×2 (09:53→20:30)
[2017-10-29] MEDS: ARIPiprazole 15 MG TAB PO SCH ×2 (09:53→20:31)
--- NOTE | 2017-10-29 09:57 | HHI.PYPN ---
Subjective Remarks Patient seen for follow, chart reviewed. Discussion nursing staff reported patient less stimulated, continues be somewhat disorganized but compliant with medications. Patient was found lying hospital bed with covers over his head but was able to interact appropriately with interview today. Patient has been noted to have some slurred speech which was difficult to discern what he was saying but was able to relate that he is feeling "alright" and asking to take a shower today. Patient reports sleeping well no difficulty eating and drinking or bowel movement. Patient did admit to auditory hallucinations stating "they are all right". Review of Systems Except as stated in HPI: all other systems reviewed are Neg Mental Status Examination Appearance: Appropriate Consciousness: Alert Orientation: Person, Place, Situation Motor Activity: Abnormal gait Speech: Other (slurred, dificult to understand) Language: Adequate Fund of Knowledge: Inadequate Attention and Concentration: Inadequate Memory: Impaired Mood: Appropriate Affect: Appropriate Thought Process & Associations: Other (diminished) Thought Content: Hallucinations Hallucination Type: Auditory Delusion Type: None Suicidal Ideation: No Suicidal Plan: No Suicidal Intention: No Homicidal Ideation: No Homicidal Plan: No Homicidal Intention: No Insight: Fair Judgment: Poor Results Vitals/IOs Vital Signs Date Time Temp Pulse Resp B/P (MAP) Pulse Ox O2 Delivery O2 Flow Rate FiO2 10/29/17 06:42 51 16 85/52 (63) 94 10/28/17 18:44 98.0 10/25/17 07:00 Room Air Intake and Output 10/29/17 10/29/17 10/30/17 08:00 16:00 00:00 Intake Total 0 ml Balance 0 ml Assessment & Plan Problem List: (1) Schizophrenia ICD Codes: F20.9 - Schizophrenia, unspecified Status: Acute Assessment & Plan Patient to continue current treatment. Continue monitor mood and behavior. Continue recommendations as per prior medical team. Discharge planning a progress. Justification for Cont. Inpt. At risk for further decompensation if at lower level of care Problem Qualifiers (1) Schizophrenia: Qualified Codes: F20.0 - Paranoid schizophrenia Jose Roberto Randolph MD Oct 29, 2017 09:57
--- NOTE | 2017-10-29 10:21 | HHI.PR ---
Subjective Remarks The patient is a 57-year-old male with a past medical history of CVA and schizophrenia who presented to the emergency department under Hanna act for psychiatric evaluation. Per the Hanna act report the patient has been decompensating since Tuesday with significant change in mental status including disorientation, walking into the streets and grossly diminished in speed. He has refused medical treatment and presents with symptoms resembling a CVA. The pt has been admitted to the medical psychiatry unit and medicine has been consulted for medical management. The pt is resting comfortably in bed. He denies any pain or shortness of breath. The sitter in the room mentions that the pt has been eating but has not been very ambulatory. The pt seemed to not want to answer the same questions over and over. The pt was lethargic and unable to answer questions comprehensively. 10-27 The patient was resting in bed comfortably. He was more awake. He had no acute concerns. He said he ate his breakfast. 10-28 Patient is noted to be talking to himself. Patient denies cp/sob. Denies chest pain. 10-29 MUMBLING NO NEW COMPLAINTS TALKATIVE - DW RN AND PT CHART REVIEWED Objective Vitals Vital Signs Date Time Temp Pulse Resp B/P (MAP) Pulse Ox O2 Delivery O2 Flow Rate FiO2 10/29/17 06:42 51 16 85/52 (63) 94 10/28/17 18:44 98.0 63 18 105/61 (76) 93 I/O 10/28/17 10/28/17 10/28/17 10/29/17 10/29/17 10/29/17 07:00 15:00 23:00 07:00 15:00 23:00 Intake Total 0 ml 600 ml 1780 ml 0 ml 360 ml Balance 0 ml 600 ml 1780 ml 0 ml 360 ml Intake Oral 0 ml 600 ml 1780 ml 0 ml 360 ml # Voids 2 2 1 Result Diagram: 10/26/17 0746 Other Results Laboratory Tests Test 10/28/17 09:29 Ammonia 31 MCMOL/L Imaging Last Impressions Head CT 10/24/171624 Signed Impressions: CONCLUSION: 1. Negative noncontrast axial head CT Chest X-Ray 10/24/171624 Signed Impressions: CONCLUSION: Suspected minimal left base atelectasis or consolidation. Objective Remarks GENERAL: Awake and alert confused talkative mumbles SKIN: Warm and dry. HEAD: Atraumatic. Normocephalic. EYES: Pupils equal and round. No scleral icterus. No injection or drainage. Extraocular muscles intact ENT: No nasal bleeding or discharge. Mucous membranes pink and moist. Tongue is midline NECK: Trachea midline. No JVD. Supple CARDIOVASCULAR: Regular rate and rhythm. S1-S2 no S3 or S4 RESPIRATORY: No accessory muscle use. Clear to auscultation. Breath sounds equal bilaterally. GASTROINTESTINAL: Abdomen soft, non-tender, nondistended. Hepatic and splenic margins not palpable. MUSCULOSKELETAL: Extremities without clubbing, cyanosis, or edema. No obvious deformities. NEUROLOGICAL: Awake and alert. No obvious cranial nerve deficits. Motor grossly within normal limits. 4 out of 5 muscle strength in the arms and legs. ABNormal speech. PSYCHIATRIC: INAppropriate mood and affect; insight and judgment ABnormal. Medications and IVs Current Medications Sodium Chloride (NS Flush) 2 ml UNSCH PRN IV FLUSH FLUSH AFTER USING IV ACCESS ; Start 10/24/17 at 16:30 Sodium Chloride 1,000 ml @ 999 mls/hr BOLUS ONCE IV Last administered on 10/24at 18:35; Start 10/24/17 at 17:15; Stop 10/24/17 at 18:15; Status DC Lactulose (Lactulose Liq) 60 ml ONCE ONCE PO Last administered on 10/24/17at 18 :35; Start 10/24/17 at 18:00; Stop 10/24/17 at 18:01; Status DC Acetaminophen (Tylenol) 650 mg Q4H PRN PO Pain 1-5 or Temp >101F; Start at 09:45 Magnesium Hydroxide (Milk Of Magnesia Liq) 30 ml DAILY PRN PO CONSTIPATION; Start 10/25/17 at 09:45 Al Hydrox/Mg Hydrox/Simethicone (Mag-Al Plus Susp Liq) 30 ml Q6H PRN PO DYSPEPSIA Last administered on 10/27/17at 10:18; Start 10/25/17 at 09:45 Sodium Chloride 1,000 ml @ 100 mls/hr Q10H IV Last administered on 10/26/17at 05:25; Start 10/25/17 at 10:30 Amlodipine Besylate (Norvasc) 5 mg DAILY PO Last administered on 10/28/17at 10: 25; Start 10/27/17 at 09:00 Aripiprazole (Abilify) 15 mg HS PO ; Start 10/26/17 at 21:00; Stop 10/27/17 at 14:09; Status DC Clonazepam (KlonoPIN) 2 mg HS PO ; Start 10/26/17 at 21:00 Hydrochlorothiazide (Microzide) 12.5 mg DAILY PO Last administered on at 10:26; Start 10/26/17 at 14:45 [place] Carbonate ([place] Carbonate) 300 mg HS PO ; Start 10/26/17 at 21:00; Stop 10/27/17 at 14:09; Status DC Sertraline HCl (Zoloft) 50 mg DAILY PO Last administered on 10/29/17at 09:52; Start 10/26/17 at 14:45 Tolterodine Tartrate ([place]) 4 mg HS PO Last administered on 10/28/17at 20: 38; Start 10/26/17 at 21:00 Aripiprazole (Abilify) 15 mg BID PO Last administered on 10/29/17at 09:53; Start 10/27/17 at 21:00 [place] Carbonate ([place] Carbonate) 300 mg BID PO Last administered on at 09:53; Start 10/27/17 at 21:00 Aspirin (Aspirin Chew) 162 mg DAILY CHEW Last administered on 10/29/17at 09:52; Start 10/28/17 at 10:00 A/P Problem List: (1) Schizophrenia ICD Code: F20.9 - Schizophrenia, unspecified Status: Acute Plan: The patient presented with altered mental status under [place] act. Ammonia level found to be elevated but has trended down to normal levels with lactulose. LFTs are unremarkable. B12 within normal limits. Patient likely with toxic encephalopathy due to elevated ammonia levels. We will order liver ultrasound to assess liver parenchyma. (2) Hyperammonemia ICD Code: E72.20 - Disorder of urea cycle metabolism, unspecified Plan: On admission elevated at 52. Trended down to normal levels. Continue lactulose. (3) Bradycardia ICD Code: R00.1 - Bradycardia, unspecified Status: Acute Plan: Patient with asymptomatic bradycardia. EKG with sinus rhythm and possible early depolarization. Heart rate noted to be dropping into the 40s. Amlodipine discontinued, heart rate much improved. Continue to monitor vital signs. (4) HTN (hypertension) ICD Code: I10 - Essential (primary) hypertension Plan: Blood pressure stable off antihypertensive medications. Continue to monitor vital signs. (5) H/O: CVA (cerebrovascular accident) ICD Code: Z86.73 - Personal history of transient ischemic attack (TIA), and cerebral infarction without residual deficits Plan: Patient has residual slurred speech. Continue PT/OT/ST. Head CT negative. Patient not currently on aspirin. I will start on aspirin 160 mg p.o. daily. Assessment and Plan Schizophrenia Elevated ammonia level ultrasound of abdomen is pending Bradycardia resolved Hypertension stable at this time History of CVA started on aspirin Discharge Planning Pending psychiatric placement Problem Qualifiers (1) Schizophrenia: Qualified Codes: F20.0 - Paranoid schizophrenia (2) HTN (hypertension): Qualified Codes: I10 - Essential (primary) hypertension Abel Oseguera DO Oct 29, 2017 10:20
[2017-10-29 18:09] VITALS: BP 111/67; PULSE 60; RESP 16; TEMP 97.7; O2SAT 93
[2017-10-29] MEDS: clonazePAM 1 MG TAB PO SCH (19:21)
[2017-10-29] MEDS: TOLTERODINE TARTRATE 4 MG CAP LA PO SCH (20:31)
--- NOTE | 2017-10-29 22:41 | RADRPT ---
EXAM DATE: 10/29/2017 10:26 PM EDT AGE/SEX: 57 years / Male INDICATIONS: Cirrhosis. CLINICAL DATA: This is the patient's initial encounter. Patient reports that signs and symptoms have been present for 1 day and indicates a pain score of 0/10. MEDICAL/SURGICAL HISTORY: Stroke. Hypertension. Schizophrenia. Bipolar disorder. MRSA. Halluci nations. Appendectomy. Right hand surgery. COMPARISON: No prior exams available for comparison. MEASUREMENTS: Liver:__ 15.0 cm. Common Bile Duct:__ 5mm. Right Kidney:__ cm. FINDINGS: Liver: Normal echotexture without focal lesion or ductal dilatation. Portal Vein: Hepatopedal flow seen in portal vein. Common Duct: No intraluminal mass or stone visualized. Gallbladder: Demonstrates no wall thickening or pericholecystic fluid. Stones visualized. Pancreas: Not well visualized. Right Kidney: Normal echotexture and cortical thickness. No solid mass or hydronephrosis. 3 cm cyst. Other: None. CONCLUSION: 1. Multiple gallstones visualized. Largest measures around 1 cm in diameter. 2. Right renal cyst measures about 3 cm in diameter. Electronically signed by: Luke Mckenna MD 10/29/2017 10:40 PM EDT
[2017-10-30] MEDS: SODIUM CHLOR 0.9% 1000 ML INJ 1,000 ML IV SCH ×3 (00:30→20:30)
[2017-10-30 06:09] VITALS: BP 132/72; PULSE 61; RESP 16; TEMP 98.2; O2SAT 94
[2017-10-30] MEDS: amLODIPine BESYLATE 5 MG TAB PO SCH (08:40)
[2017-10-30] MEDS: ASPIRIN 81 MG CHEW TAB CHEW SCH (08:40)
[2017-10-30] MEDS: HYDROCHLOROTHIAZIDE 12.5 MG CAP PO SCH (08:40)
[2017-10-30] MEDS: SERTRALINE HCL 50 MG TAB PO SCH (08:41)
[2017-10-30] MEDS: ARIPiprazole 15 MG TAB PO SCH ×2 (08:41→21:13)
[2017-10-30] MEDS: LITHIUM CARBONATE 300 MG CAP PO SCH ×2 (08:41→21:15)
--- NOTE | 2017-10-30 11:19 | HHI.PR ---
Subjective Remarks Follow-up visit CVA, schizophrenia, HTN, elevated ammonia level. Patient seen and examined today. Laying in bed. Slow response to questions and commands. Speech slurred. States he is doing okay. Denies pain and discomfort. Denies SOB/ dyspnea. Denies chest pain, palpitations, headaches, dizziness. Denies fevers, chills, n/v/d. Denies dysuria. Objective Vitals Vital Signs Date Time Temp Pulse Resp B/P (MAP) Pulse Ox O2 Delivery O2 Flow Rate FiO2 10/30/17 06:09 98.2 61 16 132/72 (92) 94 10/29/17 18:09 97.7 60 16 111/67 (82) 93 I/O 10/29/17 10/29/17 10/29/17 10/30/17 10/30/17 10/30/17 07:00 15:00 23:00 07:00 15:00 23:00 Intake Total 0 ml 360 ml 1320 ml Balance 0 ml 360 ml 1320 ml Intake Oral 0 ml 360 ml 1320 ml # Voids 1 1 1 Result Diagram: 10/26/17 0746 Imaging Last Impressions Liver Ultrasound 10/29/17 0000 Signed Impressions: CONCLUSION: 1. Multiple gallstones visualized. Largest measures around 1 cm in diameter. 2. Right renal cyst measures about 3 cm in diameter. Head CT 10/24/17 1625 Signed Impressions: CONCLUSION: 1. Negative noncontrast axial head CT Chest X-Ray 10/24/17 1625 Signed Impressions: CONCLUSION: Suspected minimal left base atelectasis or consolidation. Objective Remarks GENERAL: This is a well-nourished, well-developed patient, in no apparent distress. SKIN: Warm and dry HEENT: Normocephalic. Pupils equal round and reactive. Nose without bleeding. Airway patent. NECK: Trachea midline. No JVD. Supple. CARDIOVASCULAR: Regular rate and rhythm without murmurs, gallops, or rubs. RESPIRATORY: Clear to auscultation. Breath sounds equal bilaterally. No wheezes , rales, or rhonchi. GASTROINTESTINAL: Abdomen soft, non-tender, nondistended. Bowel Sounds normoactive x4. MUSCULOSKELETAL: Extremities without clubbing, cyanosis, or edema. NEUROLOGICAL: Awake and alert. Oriented to person. Slurred speech. A/P Problem List: (1) Schizophrenia ICD Code: F20.9 - Schizophrenia, unspecified Status: Acute (2) Hyperammonemia ICD Code: E72.20 - Disorder of urea cycle metabolism, unspecified (3) Bradycardia ICD Code: R00.1 - Bradycardia, unspecified Status: Acute (4) HTN (hypertension) ICD Code: I10 - Essential (primary) hypertension (5) H/O: CVA (cerebrovascular accident) ICD Code: Z86.73 - Personal history of transient ischemic attack (TIA), and cerebral infarction without residual deficits Assessment and Plan Patient is a 57-year-old male with a past medical history of CVA and schizophrenia who presented to the emergency department under Hanna act for psychiatric evaluation for increase disorientation, walking into the streets and grossly diminished in speed. Is now admitted to medical psychiatry and further evaluation. Consulted for assistance with medical management Schizophrenia. Hyperammonemia -AMS and under a Hanna Act. Ammonia level was initially elevated but has normalized following lactulose. LFTs unremarkable. B12 level within normal limits. -management per psychiatry. -Repeat ammonia level 26 -->31 Bradycardia HR 50's-60's -EKG with normal sinus rhythm. TSH WNL. -Patient is a symptomatic -Amlodipine has been discontinued. Improved heart rate CVA, Hx -Slurred speech. He also seems weak. -PT/ OT/ ST eval and treat -Head CT negative. -Aspirin 162 mg daily, atorvastatin 10 mg daily HTN, hx -Holding HCTZ, amlodipine 5 mg p.o. restarted -Normotensive. Continue to monitor DVT prop Ambulation Problem Qualifiers (1) Schizophrenia: Qualified Codes: F20.0 - Paranoid schizophrenia (2) HTN (hypertension): Qualified Codes: I10 - Essential (primary) hypertension Riki Hawkins Oct 30, 2017 11:19
[2017-10-30] MEDS: ATORVASTATIN 10 MG TAB PO SCH (13:45)
--- NOTE | 2017-10-30 16:45 | HHI.PYPN ---
Subjective Remarks Patient seen for follow, chart reviewed. Discussion nursing staff reported the patient continues to talk to self at times continues with difficulty to be understood due to slurred speech and stating wanting to go home. Patient was found sitting hospital bed, have to have taken a shower. Patient with difficulty to comprehend due to slurred speech but was able to state that his mood has been "okay" continues to endorse auditory hallucinations stating "I do not accept them" but was unable to confirm or deny if there were command in nature. Patient also was perseverative today on not having had dinner last evening due to an ultrasound that was done. Patient denies any suicidal homicidal ideations at this time. No behavioral issues recently. Review of Systems Except as stated in HPI: all other systems reviewed are Neg Mental Status Examination Appearance: Appropriate Consciousness: Alert Orientation: Person, Place, Situation Motor Activity: Abnormal gait Speech: Other (slurred, dificult to understand) Language: Adequate Fund of Knowledge: Inadequate Attention and Concentration: Inadequate Memory: Impaired Mood: Appropriate Affect: Appropriate Thought Process & Associations: Other (diminished) Thought Content: Hallucinations Hallucination Type: Auditory Delusion Type: None Suicidal Ideation: No Suicidal Plan: No Suicidal Intention: No Homicidal Ideation: No Homicidal Plan: No Homicidal Intention: No Insight: Fair Judgment: Poor Results Vitals/IOs Vital Signs Date Time Temp Pulse Resp B/P (MAP) Pulse Ox O2 Delivery O2 Flow Rate FiO2 10/30/17 06:09 98.2 61 16 132/72 (92) 94 Assessment & Plan Problem List: (1) Schizophrenia ICD Codes: F20.9 - Schizophrenia, unspecified Status: Acute Assessment & Plan Patient this time with no behavioral services, was able to shower today, eating and drinking well continues endorse auditory hallucinations but unable to characterize him as patient has slurred speech and difficult to understand. Patient with no behavioral disturbances. Continue current treatment. Continue monitor mood and behavior. Discharge planning a progress. Justification for Cont. Inpt. At risk of further decompensation a lower level of care. Problem Qualifiers (1) Schizophrenia: Qualified Codes: F20.0 - Paranoid schizophrenia Jose Roberto Randolph MD Oct 30, 2017 16:45
[2017-10-30 18:03] VITALS: BP 110/68; PULSE 61; RESP 18; TEMP 98.1; O2SAT 95
[2017-10-30] MEDS: TOLTERODINE TARTRATE 4 MG CAP LA PO SCH (21:14)
[2017-10-30] MEDS: clonazePAM 1 MG TAB PO SCH (21:15)
[2017-10-31 05:15] VITALS: BP 110/69; PULSE 48; RESP 16; TEMP 98.1; O2SAT 98
[2017-10-31] MEDS: ARIPiprazole 15 MG TAB PO SCH (08:31)
[2017-10-31] MEDS: LITHIUM CARBONATE 300 MG CAP PO SCH (08:31)
[2017-10-31] MEDS: ATORVASTATIN 10 MG TAB PO SCH (08:32)
[2017-10-31] MEDS: HYDROCHLOROTHIAZIDE 12.5 MG CAP PO SCH (08:32)
[2017-10-31] MEDS: SERTRALINE HCL 50 MG TAB PO SCH (08:32)
[2017-10-31] MEDS: amLODIPine BESYLATE 5 MG TAB PO SCH (08:32)
[2017-10-31] MEDS: ASPIRIN 81 MG CHEW TAB CHEW SCH (09:00)
--- NOTE | 2017-10-31 10:29 | HHI.PR ---
Subjective Remarks Follow-up visit CVA, schizophrenia, HTN, elevated ammonia level. Patient seen and examined today. States is doing okay. Patient requesting to go home. States that he is ambulating if he needs to go to the bathroom. Otherwise, he reports he is "just waiting to go home." Denies pain and discomfort. Denies SOB/ dyspnea. Denies chest pain, palpitations, headaches, dizziness. Denies fevers, chills, n/v/d. Denies dysuria. Objective Vitals Vital Signs Date Time Temp Pulse Resp B/P (MAP) Pulse Ox O2 Delivery O2 Flow Rate FiO2 10/31/17 05:15 98.1 48 16 110/69 (83) 98 10/30/17 18:03 98.1 61 18 110/68 (82) 95 I/O 10/30/17 10/30/17 10/30/17 10/31/17 10/31/17 10/31/17 07:00 15:00 23:00 07:00 15:00 23:00 Intake Total 2040 ml 120 ml 480 ml Output Total 850 ml Balance 1190 ml 120 ml 480 ml Intake Oral 2040 ml 120 ml 480 ml Output Urine Total 850 ml # Voids 1 3 1 Imaging Last Impressions Liver Ultrasound 10/29/17 0000 Signed Impressions: CONCLUSION: 1. Multiple gallstones visualized. Largest measures around 1 cm in diameter. 2. Right renal cyst measures about 3 cm in diameter. Head CT 10/24/17 1625 Signed Impressions: CONCLUSION: 1. Negative noncontrast axial head CT Chest X-Ray 10/24/17 1625 Signed Impressions: CONCLUSION: Suspected minimal left base atelectasis or consolidation. Objective Remarks GENERAL: This is a well-nourished, well-developed patient, in no apparent distress. SKIN: Warm and dry HEENT: Normocephalic. Pupils equal round and reactive. Nose without bleeding. Airway patent. NECK: Trachea midline. No JVD. Supple. CARDIOVASCULAR: Regular rate and rhythm without murmurs, gallops, or rubs. RESPIRATORY: Clear to auscultation. Breath sounds equal bilaterally. No wheezes , rales, or rhonchi. GASTROINTESTINAL: Abdomen soft, non-tender, nondistended. Bowel Sounds normoactive x4. MUSCULOSKELETAL: Extremities without clubbing, cyanosis, or edema. NEUROLOGICAL: Awake and alert. Oriented to person. Slurred speech. A/P Problem List: (1) Schizophrenia ICD Code: F20.9 - Schizophrenia, unspecified Status: Acute (2) Hyperammonemia ICD Code: E72.20 - Disorder of urea cycle metabolism, unspecified (3) Bradycardia ICD Code: R00.1 - Bradycardia, unspecified Status: Acute (4) HTN (hypertension) ICD Code: I10 - Essential (primary) hypertension (5) H/O: CVA (cerebrovascular accident) ICD Code: Z86.73 - Personal history of transient ischemic attack (TIA), and cerebral infarction without residual deficits Assessment and Plan Patient is a 57-year-old male with a past medical history of CVA and schizophrenia who presented to the emergency department under [place] act for psychiatric evaluation for increase disorientation, walking into the streets and grossly diminished in speed. Is now admitted to medical psychiatry and further evaluation. Consulted for assistance with medical management Schizophrenia. Hyperammonemia -AMS and under a Hanna Act. Ammonia level was initially elevated but has normalized following lactulose. LFTs unremarkable. B12 level within normal limits. -management per psychiatry. -Repeat ammonia level 26 -->31 Bradycardia HR 50's-60's -EKG with normal sinus rhythm. TSH WNL. -Patient is a symptomatic -Improved heart rate. Continue amlodipine CVA, Hx -Slurred speech. He also seems weak. -PT/ OT/ ST eval and treat -Head CT negative. -Aspirin 162 mg daily, atorvastatin 10 mg daily HTN, hx -Holding HCTZ, amlodipine 5 mg p.o. restarted -Normotensive. Continue to monitor DVT prop Ambulation Stable from Hospitalist standpoint. We will sign off. Reconsult as needed. Medically cleared for discharge continue with amlodipine, aspirin, atorvastatin. Follow-up with PCP. Problem Qualifiers (1) Schizophrenia: Qualified Codes: F20.0 - Paranoid schizophrenia (2) HTN (hypertension): Qualified Codes: I10 - Essential (primary) hypertension Riki Hawkins Oct 31, 2017 10:28
[2017-10-31] MEDS ORDERED: AMLO5TAB2 PO (11:20)
[2017-10-31] MEDS ORDERED: LIPI10TA PO (11:20)
[2017-10-31] MEDS ORDERED: ASPI81 CHEW (11:20)
--- NOTE | 2017-10-31 12:52 | PD.TTN ---
Patient Problems 1. Discharge planning 2. Medication compliance 3. Knowledge deficit 4. Lack of coping skills Progress Toward Goals Provider Present: Dr. Qing Amin Provider Input: 10/31/2017; Patient is stable, and cleared psychic, pending medical clearance. Nurse(s) Present: Clarissa Nurse(s) Input: 10/31/2017 patient is eating and taking his medication, no behavior Psychiatric Counselors Present: MARK Ochoa Psych Therapist Input: 10/31/2017; counselor will contact Za SUAREZ to make the aware of patient's current status and possible dc if medication cleared. Group Spec/RT/OT/ALVAREZ Present: Roby Dhaliwal OT Group Spec/RT/OT/ALVAREZ Input: 10/31/2017; patient refused to participate with any groups or activities Documentation Scribe: Kandy Ivy MEGAN Oct 31, 2017 12:52
[2017-10-31] MEDS ORDERED: ARIP1TAB13 PO (13:42)
[2017-10-31] MEDS ORDERED: KLON2TAB PO (13:42)
[2017-10-31] MEDS ORDERED: LITH300C2 PO (13:42)
[2017-10-31] MEDS ORDERED: ZOLO50TA PO (13:42)
--- NOTE | 2017-10-31 13:47 | HHI.DS ---
Psychiatry Discharge Summary Inpatient Psychiatric care?: Yes Advance Directive: No Reason Not Provided: declined Mental Health AdvanceDirective: No Health Care Proxy: No Admission Admission Date Oct 25, 2017 at 09:47 Admission Diagnosis: (1) Schizophrenia ICD Code: F20.9 - Schizophrenia, unspecified Brief History The patient is a 57-year-old man, domiciled in [facility], single, unemployed, supported by [facility], with psychiatric history of schizophrenia , multiple psychiatric hospitalizations, last hospitalization here in [place] in 2017 under the care of Dr. Randolph, recommendation review, no previous suicide attempts, outpatient care in [facility], the patient is on clonazepam 2 mg twice daily, Zoloft 50 mg, Abilify 15 mg, Invega sutena 234 mg, lithium 300 mg twice daily, benztropine 4 mg at bedtime, medical history of hypertension, who presented to emerge department under Hanna act for psychiatric evaluation. Per the Hanna act report, filed by psychologist at the [facility] where the patient resides , "patient has been decompensating since Tuesday with significant change in mental status including disorientation, walking into the streets and grossly diminished in speed. He has refused medical treatment and presents with symptoms resembling a CVA. He is a risk to himself and requires evaluation." On arrival to the ED patient was drowsy but arousable, initially H&P is limited due to patient's mental status. by Ms. Spann :"patient is seen this morning. he is asleep but awakens with verbal prompting . He remains sleepy. His speech s very difficult to understand as he mumbles but makes an effort at answering questions. he does report that he is hearing voices at this time. He does not appear to be responding to halluciantions. Not suicidal. He did write on a piece of paper that he wanted to go to the crisis center. Telephone call to psychologist who placed patient under BA Eloy at [phone]. Message left as he is unavailable. Telephone call to [facility] to obtain further clinical information . I spoke with Aminta who states that the patient has had gradual decline in his functioning for the past 4 weeks including gait impairment, slurring of his words. he has refused to comply with getting a CT scan. CT of brain was negative. Chest X Ray with some left base consolidation. Li level 0.4 meq. Ammonia level initially 52, now 26. Patient was given lactulose. CK 346. On my psychiatric evaluation today the patient is calm, a little bit confused, but oriented 3. The patient has slurred/incoherent speech result of CVA. But, he is able to tell me that he feels much better. Reports okay mood. At this moment he denies visual and auditory hallucinations. At some point becomes disorganized, but he is redirectable. Compliant with medications, no significant side effects at the moment. He denies suicidal and homicidal ideation. He denies the use of illegal drugs or alcohol 10/26/2017 Above H&P by Dr. Mao reviewed and agreed with. Patient is a Dr. Mao service under the [employer] act. Dr. Mao has signed first opinion petition supporting Hanna act. I concur patient meets criteria for involuntary psychiatric hospitalization on the Hanna act. Patient was seen by me with nurse holly. He continues irritable quite confusing and difficult to understand. He is irritable with me with a marked angry look on his face. At this time he does meet criteria. Tobacco Use In Past 30 Days: 5 or More Cigarettes/Day Alcohol Use: Never Hospital Course Patient's hospital course was essentially uneventful, his initial paranoia irritability and noncompliance slowly resolved she showed an increasing cooperation with us both the milieu and the medication. He did have a good weekend. He has been compliant with his medications. He is alert he is oriented though there is a dysarthric speech. His verbal responses are appropriate. He does deny suicidality homicidality voices or visions at this time. He states he feels well and left mouth to return to [facility]. At this time I feel patient is met maximum benefit of this hospitalization thus will be discharged today to [facility] with Rx 1 month follow-up services through that facility Results Blood Pressure 110 / 69 Vital Signs Date Time Temp Pulse Resp B/P (MAP) Pulse Ox O2 Delivery O2 Flow Rate FiO2 10/31/17 05:15 98.1 48 16 110/69 (83) 98 Laboratory Tests Test 10/31/17 05:54 Laboratory Results Test 10/26/17 07:46 10/31/17 05:54 Cholesterol Level 144 MG/DL (120-200) HDL Cholesterol 46.1 MG/DL (40.0-60.0) Hemoglobin A1c 5.4 % (4.3-6.0) LDL Cholesterol 82 MG/DL (0-99) Triglycerides Level 79 MG/DL (42-150) [place] Level 0.5 MEQ/L (0.5-1.5) Summary of Procedures None done Imaging Last Impressions Liver Ultrasound 10/29/17 0000 Signed Impressions: CONCLUSION: 1. Multiple gallstones visualized. Largest measures around 1 cm in diameter. 2. Right renal cyst measures about 3 cm in diameter. Head CT 10/24/17 1625 Signed Impressions: CONCLUSION: 1. Negative noncontrast axial head CT Chest X-Ray 10/24/17 162 Signed Impressions: CONCLUSION: Suspected minimal left base atelectasis or consolidation. Pending results at discharge: No Medications # of Antipsychotic meds at D/C: 1 Approp Antipsych med options 1 - Minimum of three failed multiple trials of monotherapy. 2 - Documented plan to taper to monotherapy due to previous use of multiple meds OR cross-taper in progress at D/C. 3 - Documentation of augmentation of Clozapine. 4 - Justification other than those listed in allowable values 1-3, document here : Discharge Discharge Date: Oct 31, 2017 Discharge Diagnosis: (1) Schizophrenia ICD Code: F20.9 - Schizophrenia, unspecified Status: Acute Pt Condition on Discharge: Stable Discharge Disposition: [facility]F/[facility] Discharge Instructions Diet Instructions: As Tolerated, No Restrictions Activities you can perform: Regular-No Restrictions Scheduled Appointment: Dr. Gallagher Appointment Date: Nov 07, 2017 Appointment Time: 09:30am Discharge Time > 30 minutes Mental Status Examination Appearance: Appropriate Consciousness: Alert Orientation: Person, Place, Situation Motor Activity: Abnormal gait Speech: Other (slurred, dificult to understand) Language: Adequate Fund of Knowledge: Inadequate Attention and Concentration: Inadequate Memory: Impaired Mood: Appropriate Affect: Appropriate Thought Process & Associations: Other (diminished) Thought Content: Hallucinations Hallucination Type: Auditory Delusion Type: None Suicidal Ideation: No Suicidal Plan: No Suicidal Intention: No Homicidal Ideation: No Homicidal Plan: No Homicidal Intention: No Insight: Fair Judgment: Poor Discharge/Advance Care Plan Health Problems: (1) Schizophrenia Goals to promote your health * To prevent worsening of your condition and complications * To maintain your health at the optimal level Directions to meet your goals Take your medications as prescribed Follow your dietary instruction Follow activity as directed Keep your appointments as scheduled Take your immunizations and boosters as scheduled If your symptoms worsen call your PCP, if no PCP go to Urgent Care Center or Emergency Room For 29/11 questions related to your inpatient stay or results of tests pending at discharge, please contact Dr. Reji Amin at Smoking is Dangerous to Your Health. Avoid second hand smoking Problem Qualifiers (1) Schizophrenia: Qualified Codes: F20.0 - Paranoid schizophrenia Reji Amin MD Oct 31, 2017 13:47
== END 2017-10-31 15:00 | DRG 885 ==
LOC: NEPC 15:28 → NEDA 10-25 09:47 → H4EA 10-25 10:45
PROVIDERS: ADMIT Psychiatry & Neurology Psychiatry; ATTEND Psychiatry & Neurology Psychiatry
DX: F20.0 Paranoid schizophrenia (principal); G92 Toxic encephalopathy; E72.20 Disorder of urea cycle metabolism, unspecified; I10 Essential (primary) hypertension; R00.1 Bradycardia, unspecified; F41.9 Anxiety disorder, unspecified; R47.1 Dysarthria and anarthria; F31.9 Bipolar disorder, unspecified; F17.210 Nicotine dependence, cigarettes, uncomplicated; Z86.73 Personal history of transient ischemic attack (TIA), and cerebral infarction without residual deficits; Z79.899 Other long term (current) drug therapy; Z91.19 Patient's noncompliance with other medical treatment and regimen
CPT/HCPCS: 70450; 71045; 76705; 80048; 80053; 80061; 80178; 80307; 81001; 82140; 82550; 82552; 82607; 83036; 83605; 84443; 84484; 85025; 85610; 85730; 93005; 96360; 96361; J7030